=== PATIENT | male | born 1970 | race Caucasian/White ===

== ENCOUNTER 2016-11-15 16:53 | Inpatient (IN) | payer OTHER ==
[2016-11-15 18:44] VITALS: BMI 26.7
--- NOTE | 2016-11-15 21:19 | HP ---
COWS - Scale Resting Pulse: 0= [place] 80 or Below Sweatin= Chills/Flushing Restless Observation: 3= Extraneous Movement Pupil Size: 0= Normal to Room Light Bone or Joint Aches: 2= Severe Diffuse Aches Runny Nose/ Eye Tearin= Runny Nose/Eyes GI Upset > 30mins: 1= Stomach Cramp Tremor Observation: 2= Slight Tremor Visible Yawning Observation: 0= None Anxiety or Irritability: 2=Irritable/Anxious Goose Flesh Skin: 0=Smooth Skin COWS Score: 13 CIWA Score - CIWA Score Nausea/Vomitin-Mild Nausea/No Vomiting Muscle Tremors: 4-Moderate,w/Arms Extend Anxiety: 4-Mod. Anxious/Guarded Agitation: 4-Moderately Restless Paroxysmal Sweats: 1-Minimal Palms Moist Orientation: 1-Uncertain about Date Tacttile Disturbances: 0-None Auditory Disturbances: 0-None Visual Disturbances: 0-None Headache: 0-None Present CIWA-Ar Total Score: 15 Admission ROS S - HPI Chief Complaint: WITHDRAWAL SX Allergies/Adverse Reactions: Allergies Allergy/AdvReac Type Severity Reaction Status Date / Time aspirin Allergy Verified 11/15/16 19:39 History of Present Illness: 46 YEARS OLD MALE WITH LONG HISTORY OF ALCOHOL HEROIN NICOTINE DEPENDENCE HAS DIABETES II AND HYPERTENSION AND ANXIETY DEPRESSION IS ADMITTED TO DETOX Exam Limitations: No Limitations - Ebola screening Have you traveled outside of the country in the last 21 days: No Have you had contact with anyone from an Ebola affected area: No Have you been sick,other than usual withdrawal symptoms: No Do you have a fever: No - Review of Systems Constitutional: Chills, Loss of Appetite, Changes in sleep, Unintentional Wgt. Loss, Unexplained wgt Loss EENT: reports: No Symptoms Reported Respiratory: reports: No Symptoms reported Cardiac: reports: No Symptoms Reported GI: reports: Nausea, Poor Appetite, Poor Fluid Intake, Abdominal cramping : reports: No Symptoms Reported Musculoskeletal: reports: Back Pain, Joint Pain, Muscle Pain, Neck Pain Integumentary: reports: No Symptoms Reported Neuro: reports: Tremors Endocrine: reports: No Symptoms Reported Hematology: reports: No Symptoms Reported Psychiatric: reports: Judgement Intact, Depressed Other Systems: Reviewed and Negative Patient History - Patient Medical History Hx Anemia: No Hx Asthma: No Hx Chronic Obstructive Pulmonary Disease (COPD): No Hx Cancer: No Hx Cardiac Disorders: No Hx Congestive Heart Failure: No Hx Hypertension: Yes Hx Hypercholesterolemia: No Hx Pacemaker: No HX Cerebrovascular Accident: No Hx Seizures: No Hx Dementia: No Hx Diabetes: Yes Hx Gastrointestinal Disorders: No Hx Liver Disease: No Hx Genitourinary Disorders: No Hx Sexually Transmitted Disorders: No Hx Renal Disease (ESRD): No Hx Thyroid Disease: No Hx Human Immunodeficiency Virus (HIV): No Hx Hepatitis C: No Hx Depression: Yes Hx Suicide Attempt: No Hx Bipolar Disorder: No Hx Schizophrenia: No - Patient Surgical History Past Surgical History: No Hx Neurologic Surgery: No Hx Cataract Extraction: No Hx Cardiac Surgery: No Hx Lung Surgery: No Hx Breast Surgery: No Hx Breast Biopsy: No Hx Abdominal Surgery: No Hx Appendectomy: No Hx Cholecystectomy: No Hx Genitourinary Surgery: No Hx Orthopedic Surgery: No - PPD History Previous Implant?: Yes Documented Results: Negative w/proof Implanted On Prior R Admission?: Yes Date: 02/03/13 Results: 0 mm PPD to be Administered?: Yes - Smoking Cessation Smoking history: Current every day smoker Have you smoked in the past 12 months: Yes Aproximately how many cigarettes per day: 20 Hx Chewing Tobacco Use: No Initiated information on smoking cessation: Yes 'Breaking Loose' booklet given: 11/15/16 - Substance & Tx. History Hx Alcohol Use: Yes Hx Substance Use: Yes Substance Use Type: Alcohol, Cocaine, Heroin Hx Substance Use Treatment: Yes (2012 [facility]) - Substances Abused Alcohol Route: Oral Frequency: Daily Amount used: liqour-3 pints, beer- 1 six pack Age of first use: 13 Date of Last Use: 11/14/16 Marijuana/Hashish Route: Smoking Frequency: Daily Amount used: 3 blunts Age of first use: 13 Date of Last Use: 11/15/16 Heroin Route: Inhalation Frequency: Daily Amount used: 15 BAGS Age of first use: 15 Date of Last Use: 11/15/16 Family Disease History - Family Disease History Family Disease History: Diabetes: Brother, Other: Father (ETOH DEPENDENT - ) , Mother (CKD) Admission Physical Exam BHS - Vital Signs Vital Signs: Vital Signs - 24 hr 11/15/16 18:41 Temperature 97.7 F Pulse Rate 69 Respiratory 18 Rate Blood Pressure 110/67 - Physical General Appearance: Yes: Nourished, Appropriately Dressed, Mild Distress, Tremorous, Irritable, Sweating, Anxious HEENTM: Yes: Hearing grossly Normal, Normal ENT Inspection, Normocephalic, Normal Voice Respiratory: Yes: Chest Non-Tender, Lungs Clear, Normal Breath Sounds, No Respiratory Distress, No Accessory Muscle Use Neck: Yes: Supple, Trachea in good position Breast: Yes: Breasts Symetrical Cardiology: Yes: Regular Rhythm, Regular Rate, S1, S2 Abdominal: Yes: Non Tender, Soft Genitourinary: Yes: Within Normal Limits Back: Yes: Normal Inspection Musculoskeletal: Yes: full range of Motion, Gait Steady, Back pain, Muscle Pain Extremities: Yes: Normal Range of Motion, Non-Tender, Tremors Neurological: Yes: Alert, Motor Strength 5/5, Normal Response, Depressed Affect Integumentary: Yes: Warm Lymphatic: Yes: Within Normal Limits - Diagnostic (1) HTN Current Visit: Yes Status: Chronic (2) DM Diabetes mellitus type 2 Current Visit: Yes Status: Chronic (3) Nicotine dependence Current Visit: Yes Status: Acute Qualifiers: Nicotine product type: cigarettes Substance use status: in withdrawal Qualified Code(s): F17.213 - Nicotine dependence, cigarettes, with withdrawal (4) Opioid dependence with withdrawal Current Visit: Yes Status: Acute (5) Alcohol dependence with uncomplicated withdrawal Current Visit: Yes Status: Acute (6) Anxiety and depression Current Visit: Yes Status: Suspected Cleared for Admission [facility] - Detox or Rehab [facility] Level of Care: Medically Managed Detox Regimen/Protocol: Methadone/Valium [facility] Breath Alcohol Content Breath Alcohol Content: 0 Urine Drug Screen - Results Drug Screen Negative: No Urine Drug Screen Results: KARRIE-Cocaine, OPI-Opiates, MTD-Methadone
[2016-11-15] MEDS ORDERED: diphenhydrAMINE HCL 50 MG CAPSULE PO PRN (21:22)
[2016-11-15] MEDS ORDERED: LOPERAMIDE HCL 2 MG CAPSULE PO PRN (21:22)
[2016-11-15] MEDS ORDERED: ACETAMINOPHEN 325 MG TABLET (FP) PO PRN (21:22)
[2016-11-15] MEDS ORDERED: MAGNESIUM HYDROX 2400MG/30ML ORAL SUSPENSION 30 ML CUP PO PRN (21:22)
[2016-11-15] MEDS ORDERED: MAGNESIUM CITRATE 300 ML BOTTLE PO PRN (21:22)
[2016-11-15] MEDS ORDERED: METHADONE HCL 10 MG TABLET (FOR DETOX USE ONLY) PO ONE ×2 (21:22→23:00)
[2016-11-15] MEDS ORDERED: NICOTINE POLACRILEX 4 MG GUM BC PRN (21:22)
[2016-11-15] MEDS ORDERED: P-EPHED 60MG/TRIPROLIDI 2.5MG TABLET PO PRN (21:22)
[2016-11-15] MEDS ORDERED: MENTHOL/PHENOL 1 EACH UD MM PRN (21:22)
[2016-11-15] MEDS ORDERED: diazePAM 5 MG TABLET PO ONE (21:22)
[2016-11-15] MEDS ORDERED: guaiFENesin/D-METHORPHAN HB 10 ML UNIT-DOSE CUPS PO PRN (21:22)
[2016-11-15] MEDS ORDERED: MAG HYDROX/AL HYDROX/SIMETH 30 ML UNIT-DOSE CUP PO PRN (21:22)
[2016-11-15] MEDS ORDERED: diazePAM 5 MG TABLET PO PRN (21:22)
[2016-11-15] MEDS: THIAMINE HCL 100 MG TABLET (FP) PO SCH (22:44)
[2016-11-15] MEDS: diazePAM 5 MG TABLET PO SCH (22:45)
[2016-11-15] MEDS: INSULIN SLIDING SCALE (NOVOLOG) 1 VIAL SQ SCH (22:47)
[2016-11-15 23:51] LABS: URINE APPEARANCE CLEAR; URINE BILIRUBIN NEGATIVE (NEGATIVE); URINE BLOOD 1+ (NEGATIVE); URINE COLOR YELLOW; URINE GLUCOSE (UA) NEGATIVE (NEGATIVE); URINE KETONE NEGATIVE (NEGATIVE); URINE LEUK ESTERASE NEGATIVE (NEGATIVE); URINE NITRITE NEGATIVE (NEGATIVE); URINE PROTEIN NEGATIVE (NEGATIVE); URINE UROBILINOGEN NEGATIVE mg/dL (0.2-1.0)
[2016-11-16 00:04] LABS: URINE MUCUS RARE; URINE RBC 13 /hpf (0-3); URINE WBC 8 /hpf (3-5)
[2016-11-16] MEDS: diazePAM 5 MG TABLET PO SCH ×3 (05:52→22:21)
[2016-11-16] MEDS: metFORMIN HCL 500 MG TABLET (FP) PO SCH (08:00)
[2016-11-16] MEDS: INSULIN SLIDING SCALE (NOVOLOG) 1 VIAL SQ SCH ×4 (08:06→22:22)
[2016-11-16] MEDS ORDERED: METHADONE HCL 10 MG TABLET (FOR DETOX USE ONLY) PO SCH (10:00)
[2016-11-16] MEDS: ENALAPRIL MALEATE 5 MG TABLET (FP) PO SCH (10:17)
[2016-11-16] MEDS: PRENATAL VITAMINS W/ FOLIC ACID TABLET (FP) PO SCH (10:18)
[2016-11-16] MEDS: NICOTINE 21 MG/24 HOURS TOPICAL PATCH TD SCH (10:19)
[2016-11-16 10:23] LABS: MCH 28.6 pg (25.7-33.7); MCHC 32.6 g/dl (32.0-35.9); MEAN CELL VOLUME 87.7 fl (80-96); MEAN PLT VOLUME 8.8 fl (7.5-11.1); PLATELET COUNT 257 K/MM3 (134-434); RDW 14.5 % (11.9-15.9); WHITE BLOOD COUNT 8.6 K/mm3 (4.0-10.0)
--- NOTE | 2016-11-16 10:35 | CONSULT ---
[facility] Psychiatric Consult - Data Date of interview: 11/16/16 Admission source: [facility] Identifying data: Readmission to [facility] for this 46 y/o male seeking detox treatment on for heroin,marijuana,cocaine and alcohol dependence.Patient is single,a father of three,homeless,unemployed and deprived of financial assistance. Substance Abuse History: Discussed with [facility] patient in this interview.Mr Palma confirms this report : Smoking Cessation. Smoking history: Current every day smoker. Have you smoked in the past 12 months: Yes. Aproximately how many cigarettes per day: 20. Hx Chewing Tobacco Use: No. Initiated information on smoking cessation: Yes. 'Breaking Loose' booklet given: 11/15/16. - Substance & Tx. History. Hx Alcohol Use: Yes. Hx Substance Use: Yes. Substance Use Type : Alcohol, Cocaine, Heroin. Hx Substance Use Treatment: Yes (2012). - Substances Abused. Alcohol. Route: Oral. Frequency: Daily. Amount used : liqour-3 pints, beer- 1 six pack. Age of first use: 13. Date of Last Use: . Marijuana/Hashish. Route: Smoking. Frequency: Daily. Amount used : 3 blunts. Age of first use: 13. Date of Last Use: 11/15/16. Heroin. Route: Inhalation. Frequency: Daily. Amount used: 15 BAGS. Age of first use: 15. Date of Last Use: 11/15/16 Medical History: Diabetes mellitus,hypertension,lower back pain and bronchial asthma. Psychiatric History: Patient denies. Physical/Sexual Abuse/Trauma History: Patient denies. Additional Comment: Urine Drug Screen Results: KARRIE-Cocaine, OPI-Opiates, MTD- Methadone.Noted. Mental Status Exam - Mental Status Exam Alert and Oriented to: Place, Person Cognitive Function: Impaired Patient Appearance: Unkempt, Disheveled Mood: Withdrawn Affect: Mood Congruent Patient Behavior: Passive, Sedated, Cooperative Speech Pattern: Delayed, Slurred Voice Loudness: Moderately Soft/Quiet Thought Process: Disorganized, Disoriented Thought Disorder: Not Present Hallucinations: Denies Suicidal Ideation: Denies Homicidal Ideation: Denies Insight/Judgement: Poor Sleep: Poorly, Difficulty falling asleep (as per self-report) Appetite: Good (as evidenced by empty foodtray at bedside) Gait/Station: Other (patient is supine.) Psychiatric Findings - Problem List ([place] 1, 2,3) (1) Alcohol dependence Current Visit: Yes Status: Active (2) Cocaine dependence Current Visit: Yes Status: Active (3) Opioid dependence Current Visit: Yes Status: Active (4) Nicotine dependence Current Visit: Yes Status: Acute (5) HTN Current Visit: Yes Status: Active (6) DM Diabetes mellitus type 2 Current Visit: Yes Status: Acute (7) Insomnia Current Visit: Yes Status: Acute - Initial Treatment Plan Initial Treatment Plan: Psychoeducation.Detoxification.Observation.Review of recent pharmacy claims : not helpful.Scripts for psychotropics : none found.
[2016-11-16 10:55] LABS: ANION GAP 6 (8-16); CALCIUM 8.2 mg/dL (8.5-10.1); CO2 31 mmol/L (21-32); GLUCOSE,RANDOM 116 mg/dL (74-106)
[2016-11-16 10:58] LABS: ALK PHOS 83 U/L (45-117); BILIRUBIN,TOTAL 1.3 mg/dL (0.2-1.0); CREATININE 0.8 mg/dL (0.7-1.3); SGOT/AST 7 U/L (15-37); SGPT/ALT 16 U/L (12-78)
--- NOTE | 2016-11-16 12:56 | PN ---
[facility] CIWA - CIWA Score Nausea/Vomitin-No Nausea/No Vomiting Muscle Tremors: 4-Moderate,w/Arms Extend Anxiety: 1-Mildly Anxious Agitation: 2 Paroxysmal Sweats: 3 Orientation: 0-Oriented Tacttile Disturbances: 2-Mild Itch/Numbness/Burn Auditory Disturbances: 3-Moderate Harsh/Frighten Visual Disturbances: 0-None Headache: 0-None Present CIWA-Ar Total Score: 15 S COWS - Scale Resting Pulse: 0= [place] 80 or Below Sweatin= Chills/Flushing Restless Observation: 0= Sits Still Pupil Size: 0= Normal to Room Light Bone or Joint Aches: 2= Severe Diffuse Aches Runny Nose/ Eye Tearin= Runny Nose/Eyes GI Upset > 30mins: 0= None Tremor Observation of Outstretched Hands: 2= Slight Tremor Visible Yawning Observation: 2= >3x During Session Anxiety or Irritability: 2=Irritable/Anxious Goose Flesh Skin: 3=Piloerection COWS Score: 14 S Progress Note (SOAP) Subjective: Tremors, Interrupted sleep, Fatigue. Objective: PT. A & O X 3, OBSERVED AMBULATING ON UNIT. NO ACUTE DISTRESS. 11/16/16 12:53 Vital Signs Temperature 98.3 F 11/16/16 09:06 Pulse Rate 60 11/16/16 09:06 Respiratory Rate 18 11/16/16 09:06 Blood Pressure 98/60 11/16/16 09:06 O2 Sat by Pulse Oximetry (%) Laboratory Tests 11/15/16 11/15/16 11/16/16 22:43 23:35 05:51 WBC RBC Hgb Hct MCV MCH MCHC RDW Plt Count MPV Sodium Potassium Chloride Carbon Dioxide Anion Gap BUN Creatinine Creat Clearance w eGFR POC Glucometer 137 108 Random Glucose Calcium Total Bilirubin AST ALT Alkaline Phosphatase Total Protein Albumin Urine Color Yellow Urine Appearance Clear Urine pH 5.0 Ur Specific [place] 1.025 Urine Protein Negative Urine Glucose (UA) Negative Urine Ketones Negative Urine Blood 1+ H Urine Nitrite Negative Urine Bilirubin Negative Urine Urobilinogen Negative Ur Leukocyte Esterase Negative Urine RBC 13 Urine WBC 8 Ur Epithelial Cells Rare Urine Mucus Rare RPR Titer 11/16/16 11/16/16 11/16/16 07:45 07:45 07:45 WBC 8.6 RBC 4.61 Hgb 13.2 Hct 40.4 MCV 87.7 MCH 28.6 MCHC 32.6 RDW 14.5 Plt Count 257 MPV 8.8 D Sodium 141 Potassium 4.2 Chloride 104 Carbon Dioxide 31 Anion Gap 6 L BUN 19 H Creatinine 0.8 Creat Clearance w eGFR > 60 POC Glucometer Random Glucose 116 H D Calcium 8.2 L Total Bilirubin 1.3 H D AST 7 L ALT 16 D Alkaline Phosphatase 83 Total Protein 6.0 L Albumin 3.0 L Urine Color Urine Appearance Urine pH Ur Specific [place] Urine Protein Urine Glucose (UA) Urine Ketones Urine Blood Urine Nitrite Urine Bilirubin Urine Urobilinogen Ur Leukocyte Esterase Urine RBC Urine WBC Ur Epithelial Cells Urine Mucus RPR Titer Nonreactive 11/16/16 10:55 WBC RBC Hgb Hct MCV MCH MCHC RDW Plt Count MPV Sodium Potassium Chloride Carbon Dioxide Anion Gap BUN Creatinine Creat Clearance w eGFR POC Glucometer 108 Random Glucose Calcium Total Bilirubin AST ALT Alkaline Phosphatase Total Protein Albumin Urine Color Urine Appearance Urine pH Ur Specific [place] Urine Protein Urine Glucose (UA) Urine Ketones Urine Blood Urine Nitrite Urine Bilirubin Urine Urobilinogen Ur Leukocyte Esterase Urine RBC Urine WBC Ur Epithelial Cells Urine Mucus RPR Titer LABS NOTED. Assessment: 11/16/16 12:54 WITHDRAWAL SYMPTOMS. Plan: CONTINUE DETOX. REPEAT UA FOR ADMISSION UA ABNORMALITIES.
[2016-11-16 17:45] LABS: URINE APPEARANCE CLEAR; URINE BILIRUBIN NEGATIVE (NEGATIVE); URINE BLOOD NEGATIVE (NEGATIVE); URINE COLOR LTYELLOW; URINE GLUCOSE (UA) NEGATIVE (NEGATIVE); URINE KETONE NEGATIVE (NEGATIVE); URINE LEUK ESTERASE TRACE (NEGATIVE); URINE NITRITE NEGATIVE (NEGATIVE); URINE PROTEIN NEGATIVE (NEGATIVE); URINE UROBILINOGEN NEGATIVE mg/dL (0.2-1.0)
[2016-11-16 17:53] LABS: URINE BACTERIA RARE /hpf (NONE SEEN); URINE MUCUS RARE; URINE RBC 2 /hpf (0-3); URINE WBC 6 /hpf (3-5)
[2016-11-16] MEDS: TETRAHYDROZOLINE HCL 1 DROP DROPS OU PRN (22:21)
[2016-11-16] MEDS: THIAMINE HCL 100 MG TABLET (FP) PO SCH (22:21)
[2016-11-17] MEDS: metFORMIN HCL 500 MG TABLET (FP) PO SCH (07:10)
[2016-11-17] MEDS: INSULIN SLIDING SCALE (NOVOLOG) 1 VIAL SQ SCH ×3 (07:11→16:28)
[2016-11-17] MEDS: PRENATAL VITAMINS W/ FOLIC ACID TABLET (FP) PO SCH (10:14)
[2016-11-17] MEDS: METHADONE HCL 5 MG TABLET (FOR DETOX USE ONLY) PO SCH (10:14)
[2016-11-17] MEDS: ENALAPRIL MALEATE 5 MG TABLET (FP) PO SCH (10:14)
[2016-11-17] MEDS: diazePAM 5 MG TABLET PO SCH ×2 (10:14→22:43)
[2016-11-17] MEDS: NICOTINE 21 MG/24 HOURS TOPICAL PATCH TD SCH (10:14)
--- NOTE | 2016-11-17 13:57 | EKG ---
Test Reason : Blood Pressure : / mmHG Vent. Rate : 061 BPM Atrial Rate : 061 BPM P-R Int : 178 ms QRS Dur : 082 ms QT Int : 410 ms P-R-T Axes : 053 -05 032 degrees QTc Int : 412 ms NORMAL SINUS RHYTHM NORMAL ECG NO PREVIOUS ECGS AVAILABLE Confirmed by CRISSY SANDHU, JOANN ([id number]) on 11/17/2016 1:57:37 PM Referred By: Confirmed By:JOANN WOODWARD MD
--- NOTE | 2016-11-17 14:13 | PN ---
S CIWA - CIWA Score Nausea/Vomitin Muscle Tremors: 4-Moderate,w/Arms Extend Anxiety: 4-Mod. Anxious/Guarded Agitation: 4-Moderately Restless Paroxysmal Sweats: No Perspiration Orientation: 0-Oriented Tacttile Disturbances: 1-Very Mild Itch/Numbness Auditory Disturbances: 0-None Visual Disturbances: 0-None Headache: 2-Mild CIWA-Ar Total Score: 18 BHS COWS - Scale Resting Pulse: 0= [place] 80 or Below Sweatin=Flushed/Facial Moisture Restless Observation: 3= Extraneous Movement Pupil Size: 0= Normal to Room Light Bone or Joint Aches: 2= Severe Diffuse Aches Runny Nose/ Eye Tearin= Runny Nose/Eyes GI Upset > 30mins: 2= Nausea/Diarrhea Tremor Observation of Outstretched Hands: 2= Slight Tremor Visible Yawning Observation: 1= 1-2x During Session Anxiety or Irritability: 2=Irritable/Anxious Goose Flesh Skin: 0=Smooth Skin COWS Score: 16 S Progress Note (SOAP) Subjective: Anxious, sweating, tremor, chills, weakness, interrupted sleep Objective: 11/17/16 14:12 Last Vital Signs Temp Pulse Resp BP Pulse Ox 98.6 F 73 18 126/78 11/17/16 13:48 11/17/16 13:48 11/17/16 13:48 11/17/16 13:48 Laboratory Tests 11/15/16 11/15/16 11/16/16 22:43 23:35 05:51 WBC RBC Hgb Hct MCV MCH MCHC RDW Plt Count MPV Sodium Potassium Chloride Carbon Dioxide Anion Gap BUN Creatinine Creat Clearance w eGFR POC Glucometer 137 108 Random Glucose Calcium Total Bilirubin AST ALT Alkaline Phosphatase Total Protein Albumin Urine Color Yellow Urine Appearance Clear Urine pH 5.0 Ur Specific [place] 1.025 Urine Protein Negative Urine Glucose (UA) Negative Urine Ketones Negative Urine Blood 1+ H Urine Nitrite Negative Urine Bilirubin Negative Urine Urobilinogen Negative Ur Leukocyte Esterase Negative Urine RBC 13 Urine WBC 8 Ur Epithelial Cells Rare Urine Bacteria Urine Mucus Rare RPR Titer 11/16/16 11/16/16 11/16/16 07:45 07:45 07:45 WBC 8.6 RBC 4.61 Hgb 13.2 Hct 40.4 MCV 87.7 MCH 28.6 MCHC 32.6 RDW 14.5 Plt Count 257 MPV 8.8 D Sodium 141 Potassium 4.2 Chloride 104 Carbon Dioxide 31 Anion Gap 6 L BUN 19 H Creatinine 0.8 Creat Clearance w eGFR > 60 POC Glucometer Random Glucose 116 H D Calcium 8.2 L Total Bilirubin 1.3 H D AST 7 L ALT 16 D Alkaline Phosphatase 83 Total Protein 6.0 L Albumin 3.0 L Urine Color Urine Appearance Urine pH Ur Specific [place] Urine Protein Urine Glucose (UA) Urine Ketones Urine Blood Urine Nitrite Urine Bilirubin Urine Urobilinogen Ur Leukocyte Esterase Urine RBC Urine WBC Ur Epithelial Cells Urine Bacteria Urine Mucus RPR Titer Nonreactive 11/16/16 11/16/16 11/16/16 10:55 13:48 16:43 WBC RBC Hgb Hct MCV MCH MCHC RDW Plt Count MPV Sodium Potassium Chloride Carbon Dioxide Anion Gap BUN Creatinine Creat Clearance w eGFR POC Glucometer 108 124 Random Glucose Calcium Total Bilirubin AST ALT Alkaline Phosphatase Total Protein Albumin Urine Color Ltyellow Urine Appearance Clear Urine pH 5.0 Ur Specific [place] >= 1.030 H Urine Protein Negative Urine Glucose (UA) Negative Urine Ketones Negative Urine Blood Negative Urine Nitrite Negative Urine Bilirubin Negative Urine Urobilinogen Negative Ur Leukocyte Esterase Trace Urine RBC 2 Urine WBC 6 Ur Epithelial Cells Rare Urine Bacteria Rare Urine Mucus Rare RPR Titer 11/17/16 11/17/16 05:48 11:14 WBC RBC Hgb Hct MCV MCH MCHC RDW Plt Count MPV Sodium Potassium Chloride Carbon Dioxide Anion Gap BUN Creatinine Creat Clearance w eGFR POC Glucometer 135 119 Random Glucose Calcium Total Bilirubin AST ALT Alkaline Phosphatase Total Protein Albumin Urine Color Urine Appearance Urine pH Ur Specific [place] Urine Protein Urine Glucose (UA) Urine Ketones Urine Blood Urine Nitrite Urine Bilirubin Urine Urobilinogen Ur Leukocyte Esterase Urine RBC Urine WBC Ur Epithelial Cells Urine Bacteria Urine Mucus RPR Titer Labs noted Assessment: 11/17/16 14:12 Withdrawal symptoms Plan: Continue detox
[2016-11-17] MEDS: THIAMINE HCL 100 MG TABLET (FP) PO SCH (22:44)
[2016-11-18] MEDS: metFORMIN HCL 500 MG TABLET (FP) PO SCH (06:31)
[2016-11-18] MEDS: diazePAM 5 MG TABLET PO SCH ×2 (10:19→22:12)
[2016-11-18] MEDS: NICOTINE 21 MG/24 HOURS TOPICAL PATCH TD SCH (10:19)
[2016-11-18] MEDS: PRENATAL VITAMINS W/ FOLIC ACID TABLET (FP) PO SCH (10:19)
[2016-11-18] MEDS: METHADONE HCL 5 MG TABLET (FOR DETOX USE ONLY) PO SCH (10:19)
[2016-11-18] MEDS: ENALAPRIL MALEATE 5 MG TABLET (FP) PO SCH (10:19)
--- NOTE | 2016-11-18 13:46 | PN ---
BHS Progress Note (SOAP) Subjective: Interrupted sleep, H/A, Fatigue. Objective: PT. A & O X 2 (DISORIENTED ABOUT DAY / DATE). NO ACUTE DISTRESS. 11/18/16 13:44 Vital Signs Temperature 97.8 F 11/18/16 13:37 Pulse Rate 62 11/18/16 13:37 Respiratory Rate 18 11/18/16 13:37 Blood Pressure 118/76 11/18/16 13:37 O2 Sat by Pulse Oximetry (%) Laboratory Tests 11/15/16 11/15/16 11/16/16 22:43 23:35 05:51 WBC RBC Hgb Hct MCV MCH MCHC RDW Plt Count MPV Sodium Potassium Chloride Carbon Dioxide Anion Gap BUN Creatinine Creat Clearance w eGFR POC Glucometer 137 108 Random Glucose Calcium Total Bilirubin AST ALT Alkaline Phosphatase Total Protein Albumin Urine Color Yellow Urine Appearance Clear Urine pH 5.[address] [place] 1.025 Urine Protein Negative Urine Glucose (UA) Negative Urine Ketones Negative Urine Blood 1+ H Urine Nitrite Negative Urine Bilirubin Negative Urine Urobilinogen Negative Ur Leukocyte Esterase Negative Urine RBC 13 Urine WBC 8 Ur Epithelial Cells Rare Urine Bacteria Urine Mucus Rare RPR Titer 11/16/16 11/16/16 11/16/16 07:45 07:45 07:45 WBC 8.6 RBC 4.61 Hgb 13.2 Hct 40.4 MCV 87.7 MCH 28.6 MCHC 32.6 RDW 14.5 Plt Count 257 MPV 8.8 D Sodium 141 Potassium 4.2 Chloride 104 Carbon Dioxide 31 Anion Gap 6 L BUN 19 H Creatinine 0.8 Creat Clearance w eGFR > 60 POC Glucometer Random Glucose 116 H D Calcium 8.2 L Total Bilirubin 1.3 H D AST 7 L ALT 16 D Alkaline Phosphatase 83 Total Protein 6.0 L Albumin 3.0 L Urine Color Urine Appearance Urine pH Ur Specific [place] Urine Protein Urine Glucose (UA) Urine Ketones Urine Blood Urine Nitrite Urine Bilirubin Urine Urobilinogen Ur Leukocyte Esterase Urine RBC Urine WBC Ur Epithelial Cells Urine Bacteria Urine Mucus RPR Titer Nonreactive 11/16/16 11/16/16 11/16/16 10:55 13:48 16:43 WBC RBC Hgb Hct MCV MCH MCHC RDW Plt Count MPV Sodium Potassium Chloride Carbon Dioxide Anion Gap BUN Creatinine Creat Clearance w eGFR POC Glucometer 108 124 Random Glucose Calcium Total Bilirubin AST ALT Alkaline Phosphatase Total Protein Albumin Urine Color Ltyellow Urine Appearance Clear Urine pH 5.[address] [place] >= 1.030 H Urine Protein Negative Urine Glucose (UA) Negative Urine Ketones Negative Urine Blood Negative Urine Nitrite Negative Urine Bilirubin Negative Urine Urobilinogen Negative Ur Leukocyte Esterase Trace Urine RBC 2 Urine WBC 6 Ur Epithelial Cells Rare Urine Bacteria Rare Urine Mucus Rare RPR Titer 11/16/16 11/17/16 11/17/16 22:20 05:48 11:14 WBC RBC Hgb Hct MCV MCH MCHC RDW Plt Count MPV Sodium Potassium Chloride Carbon Dioxide Anion Gap BUN Creatinine Creat Clearance w eGFR POC Glucometer 124 135 119 Random Glucose Calcium Total Bilirubin AST ALT Alkaline Phosphatase Total Protein Albumin Urine Color Urine Appearance Urine pH Ur Specific [place] Urine Protein Urine Glucose (UA) Urine Ketones Urine Blood Urine Nitrite Urine Bilirubin Urine Urobilinogen Ur Leukocyte Esterase Urine RBC Urine WBC Ur Epithelial Cells Urine Bacteria Urine Mucus RPR Titer 11/17/16 11/18/16 16:14 05:08 WBC RBC Hgb Hct MCV MCH MCHC RDW Plt Count MPV Sodium Potassium Chloride Carbon Dioxide Anion Gap BUN Creatinine Creat Clearance w eGFR POC Glucometer 143 147 Random Glucose Calcium Total Bilirubin AST ALT Alkaline Phosphatase Total Protein Albumin Urine Color Urine Appearance Urine pH Ur Specific [place] Urine Protein Urine Glucose (UA) Urine Ketones Urine Blood Urine Nitrite Urine Bilirubin Urine Urobilinogen Ur Leukocyte Esterase Urine RBC Urine WBC Ur Epithelial Cells Urine Bacteria Urine Mucus RPR Titer LABS NOTED. Assessment: 11/18/16 13:45 WITHDRAWAL SYMPTOMS. Plan: CONTINUE DETOX.
[2016-11-18] MEDS: TETRAHYDROZOLINE HCL 1 DROP DROPS OU PRN (17:38)
[2016-11-18] MEDS: THIAMINE HCL 100 MG TABLET (FP) PO SCH (22:12)
[2016-11-19] MEDS: metFORMIN HCL 500 MG TABLET (FP) PO SCH (07:06)
[2016-11-19] MEDS ORDERED: diazePAM 5 MG TABLET PO SCH (10:00)
[2016-11-19] MEDS ORDERED: METHADONE HCL 10 MG TABLET (FOR DETOX USE ONLY) PO SCH (10:00)
[2016-11-19] MEDS: PRENATAL VITAMINS W/ FOLIC ACID TABLET (FP) PO SCH (10:03)
[2016-11-19] MEDS: ENALAPRIL MALEATE 5 MG TABLET (FP) PO SCH (10:04)
[2016-11-19] MEDS: NICOTINE 21 MG/24 HOURS TOPICAL PATCH TD SCH (10:05)
--- NOTE | 2016-11-19 11:17 | PN ---
BHS Progress Note (SOAP) Subjective: PT WAS SEEN IN BED RESTING. NO OBVIOUS COMPLAINT VERBALIZED WHEN SPOKEN TO. Objective: 11/19/16 11:17 Vital Signs Temperature 97.4 F L 11/19/16 09:45 Pulse Rate 67 11/19/16 09:45 Respiratory Rate 18 11/19/16 09:45 Blood Pressure 109/76 11/19/16 09:45 O2 Sat by Pulse Oximetry (%) Laboratory Last Values WBC 8.6 K/mm3 (4.0-10.0) 11/16/16 07:45 RBC 4.61 M/mm3 (4.00-5.60) 11/16/16 07:45 Hgb 13.2 GM/dL (11.7-16.9) 11/16/16 07:45 Hct 40.4 % (35.4-49) 11/16/16 07:45 MCV 87.7 fl (80-96) 11/16/16 07:45 MCH 28.6 pg (25.7-33.7) 11/16/16 07:45 MCHC 32.6 g/dl (32.0-35.9) 11/16/16 07:45 RDW 14.5 % (11.9-15.9) 11/16/16 07:45 Plt Count 257 K/MM3 (134-434) 11/16/16 07:45 MPV 8.8 fl (7.5-11.1) D 11/16/16 07:45 Sodium 141 mmol/L (136-145) 11/16/16 07:45 Potassium 4.2 mmol/L (3.5-5.1) 11/16/16 07:45 Chloride 104 mmol/L (98-107) 11/16/16 07:45 Carbon Dioxide 31 mmol/L (21-32) 11/16/16 07:45 Anion Gap 6 (8-16) L 11/16/16 07:45 BUN 19 mg/dL (7-18) H 11/16/16 07:45 Creatinine 0.8 mg/dL (0.7-1.3) 11/16/16 07:45 Creat Clearance w eGFR > 60 (>60) 11/16/16 07:45 POC Glucometer 141 UNITS (()) 11/19/16 05:29 Random Glucose 116 mg/dL (74-106) H D 11/16/16 07:45 Calcium 8.2 mg/dL (8.5-10.1) L 11/16/16 07:45 Total Bilirubin 1.3 mg/dL (0.2-1.0) H D 11/16/16 07:45 AST 7 U/L (15-37) L 11/16/16 07:45 ALT 16 U/L (12-78) D 11/16/16 07:45 Alkaline Phosphatase 83 U/L (45-117) 11/16/16 07:45 Total Protein 6.0 g/dl (6.4-8.2) L 11/16/16 07:45 Albumin 3.0 g/dl (3.4-5.0) L 11/16/16 07:45 Urine Color Ltyellow 11/16/16 13:48 Urine Appearance Clear 11/16/16 13:48 Urine pH 5.0 (5.0-8.0) 11/16/16 13:48 Ur Specific [place] >= 1.030 (1.005-1.025) H 11/16/16 13:48 Urine Protein Negative (NEGATIVE) 11/16/16 13:48 Urine Glucose (UA) Negative (NEGATIVE) 11/16/16 13:48 Urine Ketones Negative (NEGATIVE) 11/16/16 13:48 Urine Blood Negative (NEGATIVE) 11/16/16 13:48 Urine Nitrite Negative (NEGATIVE) 11/16/16 13:48 Urine Bilirubin Negative (NEGATIVE) 11/16/16 13:48 Urine Urobilinogen Negative mg/dL (0.2-1.0) 11/16/16 13:48 Ur Leukocyte Esterase Trace (NEGATIVE) 11/16/16 13:48 Urine RBC 2 /hpf (0-3) 11/16/16 13:48 Urine WBC 6 /hpf (3-5) 11/16/16 13:48 Ur Epithelial Cells Rare /hpf (FEW) 11/16/16 13:48 Urine Bacteria Rare /hpf (NONE SEEN) 11/16/16 13:48 Urine Mucus Rare 11/16/16 13:48 RPR Titer Nonreactive (NONREACTIVE) 11/16/16 07:45 Assessment: 11/19/16 11:17 WITHDRAWAL SX Plan: CONTINUE DETOX
[2016-11-19] MEDS: THIAMINE HCL 100 MG TABLET (FP) PO SCH (22:20)
[2016-11-20] MEDS ORDERED: METHADONE HCL 5 MG TABLET (FOR DETOX USE ONLY) PO SCH (06:00)
[2016-11-20 06:23] VITALS: BP 105/76; TEMP 96.4
[2016-11-20] MEDS: metFORMIN HCL 500 MG TABLET (FP) PO SCH (07:32)
[2016-11-20 09:36] VITALS: PULSE 89
[2016-11-20] MEDS: PRENATAL VITAMINS W/ FOLIC ACID TABLET (FP) PO SCH (09:40)
[2016-11-20] MEDS: NICOTINE 21 MG/24 HOURS TOPICAL PATCH TD SCH (09:41)
[2016-11-20] MEDS: ENALAPRIL MALEATE 5 MG TABLET (FP) PO SCH (09:41)
--- NOTE | 2016-11-20 10:37 | DS ---
[facility] Detox Discharge Summary Admission Date: 11/15/16 Discharge Date: 11/20/16 - Physical Exam Results Vital Signs: Vital Signs Temperature 96.4 F L 11/20/16 09:35 Pulse Rate 89 11/20/16 09:35 Respiratory Rate 16 11/20/16 09:35 Blood Pressure 105/76 11/20/16 09:35 O2 Sat by Pulse Oximetry (%) - Treatment Hospital Course: Detox Protocol Followed, Detoxed Safely, Responded well, Discharged Condition Good - Medication Discharge Medications: Ambulatory Orders Enalapril Maleate 5 mg PO DAILY 09/23/12 Metformin HCl [Glucophage -] 500 mg PO DAILY #30 tablet 10/28/14 - Diagnosis (1) Alcohol dependence with uncomplicated withdrawal Current Visit: Yes Status: Acute (2) Nicotine dependence Current Visit: Yes Status: Acute Qualifiers: Nicotine product type: cigarettes Substance use status: in withdrawal Qualified Code(s): F17.213 - Nicotine dependence, cigarettes, with withdrawal (3) Opioid dependence with withdrawal Current Visit: Yes Status: Acute (4) DM Diabetes mellitus type 2 Current Visit: Yes Status: Chronic (5) HTN Current Visit: Yes Status: Chronic - AMA Did Patient Leave Against Medical Advice: No
== END 2016-11-20 09:50 | disposition home or self-care (01) | DRG 773 ==
LOC: YASAS 16:53 → Y3N 20:18
PROVIDERS: ADMIT Internal Medicine; ATTEND Internal Medicine
PROC: HZ2ZZZZ Detoxification Services for Substance Abuse Treatment (ICD-10-PCS; principal; 2016-11-15)
DX: F11.23 Opioid dependence with withdrawal (principal); F10.230 Alcohol dependence with withdrawal, uncomplicated; F17.213 Nicotine dependence, cigarettes, with withdrawal; F41.8 Other specified anxiety disorders; E11.9 Type 2 diabetes mellitus without complications; I10 Essential (primary) hypertension; G47.00 Insomnia, unspecified; M54.5 Low back pain; Z88.6 Allergy status to analgesic agent
CPT/HCPCS: 36415; 80053; 81003; 81015; 85027; 86593; 93005; 93010

== ENCOUNTER 2018-04-28 22:09 | Inpatient (IN) | payer OTHER ==
--- NOTE | 2018-04-29 | HP ---
CIWA Score - Admission Criteria OASAS Guidelines: Admission for Medically Managed Detox: Requires at least one of the followin. CIWA greater than 12 2. Seizures within the past 24 hours 3. Delirium tremens within the past 24 hours 4. Hallucinations within the past 24 hours 5. Acute intervention needed for co occurring medical disorder 6. Acute intervention needed for co occurring psychiatric disorder 7. Severe withdrawal that cannot be handled at a lower level of care (continued vomiting, continued diarrhea, abnormal vital signs) requiring intravenous medication and/or fluids 8. Admission ROS BHS - HPI Allergies/Adverse Reactions: Allergies Allergy/AdvReac Type Severity Reaction Status Date / Time aspirin Allergy Verified 11/15/16 19:39 - Ebola screening Have you traveled outside of the country in the last 21 days: No (N) Have you had contact with anyone from an Ebola affected area: No Do you have a fever: No Patient History - Patient Medical History Hx Anemia: No Hx Asthma: No Hx Chronic Obstructive Pulmonary Disease (COPD): No Hx Cancer: No Hx Cardiac Disorders: No Hx Congestive Heart Failure: No Hx Hypertension: Yes Hx Hypercholesterolemia: No Hx Pacemaker: No HX Cerebrovascular Accident: No Hx Seizures: No Hx Dementia: No Hx Diabetes: Yes Hx Gastrointestinal Disorders: No Hx Liver Disease: No Hx Genitourinary Disorders: No Hx Sexually Transmitted Disorders: No Hx Renal Disease (ESRD): No Hx Thyroid Disease: No Hx Human Immunodeficiency Virus (HIV): No Hx Hepatitis C: No Hx Depression: Yes Hx Suicide Attempt: No Hx Bipolar Disorder: No Hx Schizophrenia: No - Patient Surgical History Past Surgical History: No Hx Neurologic Surgery: No Hx Cataract Extraction: No Hx Cardiac Surgery: No Hx Lung Surgery: No Hx Breast Surgery: No Hx Breast Biopsy: No Hx Abdominal Surgery: No Hx Appendectomy: No Hx Cholecystectomy: No Hx Genitourinary Surgery: No Hx Section: No Hx Orthopedic Surgery: No Anesthesia Reaction: No - PPD History Date: 02/03/13 Results: 0 mm - Smoking Cessation Smoking history: Current every day smoker Have you smoked in the past 12 months: Yes Aproximately how many cigarettes per day: 20 Hx Chewing Tobacco Use: No Family Disease History - Family Disease History Family Disease History: Diabetes: Brother, Other: Father (ETOH DEPENDENT - ) , Mother (CKD) BHS Breath Alcohol Content Breath Alcohol Content: 0
--- NOTE | 2018-04-29 00:23 | HP ---
CIWA Score Nausea/Vomitin-No Nausea/No Vomiting Muscle Tremors: 3 Anxiety: 1-Mildly Anxious Agitation: 1-Slight > Activity Paroxysmal Sweats: 3 Orientation: 1-Uncertain about Date Tacttile Disturbances: 0-None Auditory Disturbances: 0-None Visual Disturbances: 2-Mild Sensitivity Headache: 0-None Present CIWA-Ar Total Score: 11 - Admission Criteria OASAS Guidelines: Admission for Medically Managed Detox: Requires at least one of the followin. CIWA greater than 12 2. Seizures within the past 24 hours 3. Delirium tremens within the past 24 hours 4. Hallucinations within the past 24 hours 5. Acute intervention needed for co occurring medical disorder 6. Acute intervention needed for co occurring psychiatric disorder 7. Severe withdrawal that cannot be handled at a lower level of care (continued vomiting, continued diarrhea, abnormal vital signs) requiring intravenous medication and/or fluids 8. Patient presents the following: Acute intervention needed for co-occurring med or psych disorder Admission Criteria Met: Admission criteria met Admission ROS [facility] Chief Complaint: c/o worsening withdrawal sx's. seeking detox from alcohol Allergies/Adverse Reactions: Allergies Allergy/AdvReac Type Severity Reaction Status Date / Time aspirin Allergy Verified 11/15/16 19:39 History of Present Illness: 47 Y.O. MALE WITH ALCOHOLISM AND OPIOID DEPENDENCE ON MMTP HERE FOR DETOX. CLIENT IS KNOW TO BOTH OUR IN/OUTPATIENT PROGRAMS. LAST DETOX HERE 11/2016. CURRENTLY RECEIVES METHADONE MAINTENANCE AT [facility] DAILY. HE REPORTS HIS DOSE 95 MG , LAST DOSED TODAY. HE IS SELF REFERRED TODAY WITH C/O WORSENING WITHDRAWAL SX'S, CIWA 11. HE REPORTS PMHX, DM, DENIES HX/O MENTAL HEALTH TO INCLUDE SI/HI, AVH. HE ALSO DENIES HX/O SEIZURES. REPORTS LONGEST CLEAN TIME 2 YEARS. 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 Exam Limitations: No Limitations - Ebola screening Have you traveled outside of the country in the last 21 days: No (N) Have you had contact with anyone from an Ebola affected area: No Do you have a fever: No - Review of Systems Constitutional: Chills, Loss of Appetite, Night Sweats, Changes in sleep, Unintentional Wgt. Loss EENT: reports: Dental Problems (MISSING TEETH), Throat Pain (SORE) Respiratory: reports: No Symptoms reported Cardiac: reports: No Symptoms Reported GI: reports: Poor Appetite, Poor Fluid Intake : reports: No Symptoms Reported Musculoskeletal: reports: No Symptoms Reported Integumentary: reports: No Symptoms Reported Neuro: reports: Tremors Endocrine: reports: Other (HX/O DM) Hematology: reports: No Symptoms Reported Psychiatric: reports: Orientated x3 Other Systems: Reviewed and Negative Patient History - Patient Medical History Hx Anemia: No Hx Asthma: No Hx Chronic Obstructive Pulmonary Disease (COPD): No Hx Cancer: No Hx Cardiac Disorders: No Hx Congestive Heart Failure: No Hx Hypertension: Yes Hx Hypercholesterolemia: No Hx Pacemaker: No HX Cerebrovascular Accident: No Hx Seizures: No Hx Dementia: No Hx Diabetes: Yes Hx Gastrointestinal Disorders: No Hx Liver Disease: No Hx Genitourinary Disorders: No Hx Sexually Transmitted Disorders: No Hx Renal Disease (ESRD): No Hx Thyroid Disease: No Hx Human Immunodeficiency Virus (HIV): No Hx Hepatitis C: No Hx Depression: Yes Hx Suicide Attempt: No Hx Bipolar Disorder: No Hx Schizophrenia: No Other Medical History: DENIES - Patient Surgical History Past Surgical History: No Hx Neurologic Surgery: No Hx Cataract Extraction: No Hx Cardiac Surgery: No Hx Lung Surgery: No Hx Breast Surgery: No Hx Breast Biopsy: No Hx Abdominal Surgery: No Hx Appendectomy: No Hx Cholecystectomy: No Hx Genitourinary Surgery: No Hx Section: No Hx Orthopedic Surgery: No Anesthesia Reaction: No - PPD History Previous Implant?: Yes Documented Results: Negative w/o proof Implanted On Prior R Admission?: Yes Date: 04/26/18 Results: 0 mm PPD to be Administered?: No - Smoking Cessation Smoking history: Current every day smoker Have you smoked in the past 12 months: Yes Aproximately how many cigarettes per day: 20 Cigars Per Day: 0 Hx Chewing Tobacco Use: No Initiated information on smoking cessation: Yes 'Breaking Loose' booklet given: 04/29/18 - Substance & Tx. History Hx Alcohol Use: Yes Hx Substance Use: Yes Substance Use Type: Alcohol, Cocaine, Prescribed (METHADONE) Hx Substance Use Treatment: Yes - Substances Abused LIQUOR Route: Oral Frequency: Daily Amount used: 1/2 PINT Age of first use: 15 Date of Last Use: 04/29/18 COCAINE Route: Inhalation Frequency: Daily Amount used: $20 Age of first use: 19 Date of Last Use: 04/28/18 Family Disease History - Family Disease History Family Disease History: Diabetes: Brother, Other: Father (ETOH DEPENDENT - ) , Mother (CKD) Admission Physical Exam BHS - Physical General Appearance: Yes: Appropriately Dressed, Disheveled, Mild Distress, Tremorous, Anxious, Other (MALODUROUS) HEENTM: Yes: EOMI, Normocephalic, Normal Voice, ALANA, Pharynx Normal, Other ( POOR DENTITION) Respiratory: Yes: Chest Non-Tender, Lungs Clear, Normal Breath Sounds, No Respiratory Distress, No Accessory Muscle Use Neck: Yes: No masses,lesions,Nodules, Supple, Trachea in good position Breast: Yes: Breast Exam Deferred Cardiology: Yes: Regular Rhythm, Regular Rate, S1, S2 Abdominal: Yes: Normal Bowel Sounds, Non Tender, Soft Genitourinary: Yes: Other (NO C/O OFFERED) Back: Yes: Normal Inspection Extremities: Yes: Normal Capillary Refill, Normal Range of Motion, Non-Tender, Tremors, Other (SOILED HANDS) Neurological: Yes: Fully Oriented, Alert, Motor Strength 5/5, Depressed Affect Integumentary: Yes: Dry, Warm Lymphatic: Yes: Within Normal Limits - Diagnostic (1) Methadone maintenance therapy patient Current Visit: Yes Status: Chronic (2) Cocaine dependence Current Visit: Yes Status: Active (3) Alcohol dependence with uncomplicated withdrawal Current Visit: Yes Status: Acute (4) Insomnia Current Visit: Yes Status: Chronic Qualifiers: Insomnia type: drug-induced Qualified Code(s): F19.982 - Other psychoactive substance use, unspecified with psychoactive substance-induced sleep disorder (5) Nicotine dependence Current Visit: Yes Status: Chronic Qualifiers: Nicotine product type: cigarettes Substance use status: in withdrawal Qualified Code(s): F17.213 - Nicotine dependence, cigarettes, with withdrawal (6) DM Diabetes mellitus type 2 Current Visit: Yes Status: Chronic (7) HTN Current Visit: Yes Status: Suspected BHS Breath Alcohol Content Breath Alcohol Content: 0 Vital Signs - Vital Signs Vital Signs Refused: No Temperature: 97.9 F Temperature Source: Oral Pulse Rate: 73 Respiratory Rate: 18 Blood Pressure: 113/70 BP Location: Left Arm Blood Pressure Position: Sitting - Height Height: 5 ft 7 in - Weight Weight: 74.843 kg Weight Measurement Method: Standing Scale Body Mass Index (BMI): 25.8 - Bowel Function Bowel Movement: No Urine Drug Screen - Test Device Lot Number: [id number] Expiration Date: 01/05/20 - Control Is Test Valid: Yes - Results Drug Screen Negative: No Urine Drug Screen Results: KARRIE-Cocaine, OPI-Opiates, MTD-Methadone (RX), FEN- Fentanyl
[2018-04-29 00:46] VITALS: BMI 25.8
[2018-04-29] MEDS ORDERED: chlordiazePOXIDE HCL 25 MG CAPSULE PO PRN (00:46)
[2018-04-29] MEDS ORDERED: LOPERAMIDE HCL 2 MG CAPSULE PO PRN (00:46)
[2018-04-29] MEDS ORDERED: NICOTINE POLACRILEX 2 MG GUM BC PRN (00:46)
[2018-04-29] MEDS ORDERED: ACETAMINOPHEN 325 MG TABLET (FP) PO PRN (00:46)
[2018-04-29] MEDS ORDERED: MAG HYDROX/AL HYDROX/SIMETH 30 ML UNIT-DOSE CUP PO PRN (00:46)
[2018-04-29] MEDS ORDERED: MAGNESIUM CITRATE 300 ML BOTTLE PO PRN (00:46)
[2018-04-29] MEDS ORDERED: MAGNESIUM HYDROX 2400MG/30ML ORAL SUSPENSION 30 ML CUP PO PRN (00:46)
[2018-04-29] MEDS ORDERED: guaiFENesin/D-METHORPHAN HB 10 ML UNIT-DOSE CUPS PO PRN (00:46)
[2018-04-29] MEDS ORDERED: hydrOXYzine PAMOATE 50 MG CAPSULE (FP) PO PRN (00:46)
[2018-04-29] MEDS ORDERED: P-EPHED 60MG/TRIPROLIDI 2.5MG TABLET PO PRN (00:46)
[2018-04-29] MEDS ORDERED: IBUPROFEN 400 MG TABLET (FP) PO PRN (00:46)
[2018-04-29] MEDS ORDERED: MENTHOL/PHENOL 1 EACH UD MM PRN (00:46)
[2018-04-29] MEDS: chlordiazePOXIDE HCL 25 MG CAPSULE PO SCH ×4 (05:14→22:04)
[2018-04-29] MEDS: CLOTRIMAZOLE 1% CREAM 15 GM TUBE TP SCH ×3 (07:11→22:06)
[2018-04-29] MEDS ORDERED: METHADONE HCL 10 MG TABLET PO SCH (07:45)
[2018-04-29] MEDS: metFORMIN HCL 500 MG TABLET (FP) PO SCH (08:05)
[2018-04-29] MEDS ORDERED: METHADONE HCL 5 MG TABLET ONE (08:50)
[2018-04-29] MEDS ORDERED: METHADONE HCL 40 MG DISPERSABLE TABLET ONE (08:50)
[2018-04-29] MEDS ORDERED: METHADONE HCL 10 MG TABLET ONE (08:50)
[2018-04-29] MEDS: NICOTINE 14 MG/24 HOURS TOPICAL PATCH TD SCH (10:21)
[2018-04-29] MEDS: PRENATAL VITAMINS W/ FOLIC ACID TABLET (FP) PO SCH (10:22)
[2018-04-29] MEDS: METHADONE 80 MG, METHADONE 10 MG, METHADONE 5 MG PO SCH (10:22)
--- NOTE | 2018-04-29 10:35 | PN ---
S CIWA - CIWA Score Nausea/Vomitin-Mild Nausea/No Vomiting Muscle Tremors: 3 Anxiety: 3 Agitation: 3 Paroxysmal Sweats: 1-Minimal Palms Moist Orientation: 1-Uncertain about Date Tacttile Disturbances: 0-None Auditory Disturbances: 0-None Visual Disturbances: 0-None Headache: 1-Very Mild CIWA-Ar Total Score: 13 BHS Progress Note (SOAP) Subjective: tremor sweating restlessness Objective: 04/29/18 10:36 Vital Signs Temperature 97.1 F L 04/29/18 08:55 Pulse Rate 65 04/29/18 08:55 Respiratory Rate 18 04/29/18 08:55 Blood Pressure 109/72 04/29/18 08:55 O2 Sat by Pulse Oximetry (%) Laboratory Last Values POC Glucometer 109 UNITS (80-120) 04/29/18 05:15 lab pending Assessment: 04/29/18 10:41 withdrawal sx Plan: continue detox
--- NOTE | 2018-04-29 12:42 | EKG ---
Test Reason : Blood Pressure : / mmHG Vent. Rate : 075 BPM Atrial Rate : 075 BPM P-R Int : 160 ms QRS Dur : 082 ms QT Int : 408 ms P-R-T Axes : 066 002 052 degrees QTc Int : 455 ms NORMAL SINUS RHYTHM POSSIBLE LEFT ATRIAL ENLARGEMENT BORDERLINE ECG WHEN COMPARED WITH ECG OF 15-NOV-2016 21:47, NO SIGNIFICANT CHANGE WAS FOUND Confirmed by CHANTEL HYDE MD ([id number]) on 04/29/2018 12:41:42 PM Referred By: Confirmed By:CHANTEL HYDE MD
[2018-04-29 13:41] LABS: URINE APPEARANCE CLEAR; URINE BILIRUBIN NEGATIVE (<2.0 mg/dL); URINE COLOR YELLOW; URINE GLUCOSE (UA) NEGATIVE (NEGATIVE); URINE KETONE NEGATIVE (NEGATIVE); URINE LEUK ESTERASE TRACE (NEGATIVE); URINE NITRITE NEGATIVE (NEGATIVE); URINE PROTEIN NEGATIVE (NEGATIVE)
[2018-04-29 14:01] LABS: EPI CELLS RARE /HPF (FEW); URINE MUCUS FEW
[2018-04-29 15:51] LABS: HEMOGLOBIN 12.8 GM/dL (11.7-16.9); MEAN PLT VOLUME 8.2 fl (7.5-11.1); RDW 13.7 % (11.9-15.9)
[2018-04-29 15:54] LABS: HEMATOCRIT 38.1 % (35.4-49); MCH 30.1 pg (25.7-33.7); MCHC 33.5 g/dl (32.0-35.9); MEAN CELL VOLUME 89.6 fl (80-96); PLATELET COUNT 311 K/MM3 (134-434); RBC 4.25 M/mm3 (4.00-5.60); WHITE BLOOD COUNT 6.6 K/mm3 (4.0-10.0)
[2018-04-29 16:10] LABS: ALBUMIN 3.6 g/dl (3.4-5.0); ALK PHOS 71 U/L (45-117); ANION GAP 5 MMOL/L (8-16); BILIRUBIN,TOTAL 0.4 mg/dL (0.2-1); BLOOD UREA NITROGEN 24 mg/dL (7-18); CALCIUM 8.8 mg/dL (8.5-10.1); CHLORIDE 105 mmol/L (98-107); CO2 32 mmol/L (21-32); CREATININE 0.8 mg/dL (0.55-1.3); GLUCOSE,RANDOM 74 mg/dL (74-106); POTASSIUM 4.5 mmol/L (3.5-5.1); SGOT/AST 12 U/L (15-37); SGPT/ALT 19 U/L (13-61); SODIUM 142 mmol/L (136-145)
[2018-04-29] MEDS ORDERED: MELATONIN 5 MG TABLETS PO PRN (22:00)
[2018-04-29] MEDS: THIAMINE HCL 100 MG TABLET (FP) PO SCH (22:04)
[2018-04-30] MEDS ORDERED: METHADONE HCL 10 MG TABLET ONE (04:21)
[2018-04-30] MEDS ORDERED: METHADONE HCL 40 MG DISPERSABLE TABLET ONE (04:22)
[2018-04-30] MEDS ORDERED: METHADONE HCL 5 MG TABLET ONE (04:22)
[2018-04-30] MEDS: chlordiazePOXIDE HCL 25 MG CAPSULE PO SCH ×4 (05:20→22:24)
[2018-04-30] MEDS: METHADONE 80 MG, METHADONE 10 MG, METHADONE 5 MG PO SCH (05:20)
[2018-04-30] MEDS: metFORMIN HCL 500 MG TABLET (FP) PO SCH (06:29)
--- NOTE | 2018-04-30 08:44 | PN ---
[facility] CIWA - CIWA Score Nausea/Vomitin-Mild Nausea/No Vomiting Muscle Tremors: 2 Anxiety: 2 Agitation: 2 Paroxysmal Sweats: 1-Minimal Palms Moist Orientation: 1-Uncertain about Date Tacttile Disturbances: 0-None Auditory Disturbances: 0-None Visual Disturbances: 0-None Headache: 1-Very Mild CIWA-Ar Total Score: 10 S Progress Note (SOAP) Subjective: tremor sweating gi distress Objective: 04/30/18 08:43 Vital Signs Temperature 97.3 F L 04/30/18 06:09 Pulse Rate 65 04/30/18 06:09 Respiratory Rate 18 04/30/18 06:09 Blood Pressure 97/64 04/30/18 06:09 O2 Sat by Pulse Oximetry (%) Laboratory Last Values WBC 6.6 K/mm3 (4.0-10.0) 04/29/18 11:10 RBC 4.25 M/mm3 (4.00-5.60) 04/29/18 11:10 Hgb 12.8 GM/dL (11.7-16.9) 04/29/18 11:10 Hct 38.1 % (35.4-49) 04/29/18 11:10 MCV 89.6 fl (80-96) 04/29/18 11:10 MCH 30.1 pg (25.7-33.7) 04/29/18 11:10 MCHC 33.5 g/dl (32.0-35.9) 04/29/18 11:10 RDW 13.7 % (11.9-15.9) 04/29/18 11:10 Plt Count 311 K/MM3 (134-434) 04/29/18 11:10 MPV 8.2 fl (7.5-11.1) 04/29/18 11:10 Sodium 142 mmol/L (136-145) 04/29/18 11:10 Potassium 4.5 mmol/L (3.5-5.1) 04/29/18 11:10 Chloride 105 mmol/L (98-107) 04/29/18 11:10 Carbon Dioxide 32 mmol/L (21-32) 04/29/18 11:10 Anion Gap 5 MMOL/L (8-16) L 04/29/18 11:10 BUN 24 mg/dL (7-18) H 04/29/18 11:10 Creatinine 0.8 mg/dL (0.55-1.3) 04/29/18 11:10 Creat Clearance w eGFR > 60 (>60) 04/29/18 11:10 POC Glucometer 145 UNITS (80-120) 04/30/18 05:19 Random Glucose 74 mg/dL (74-106) 04/29/18 11:10 Calcium 8.8 mg/dL (8.5-10.1) 04/29/18 11:10 Total Bilirubin 0.4 mg/dL (0.2-1) 04/29/18 11:10 AST 12 U/L (15-37) L 04/29/18 11:10 ALT 19 U/L (13-61) 04/29/18 11:10 Alkaline Phosphatase 71 U/L (45-117) 04/29/18 11:10 Total Protein 7.0 g/dl (6.4-8.2) 04/29/18 11:10 Albumin 3.6 g/dl (3.4-5.0) 04/29/18 11:10 Urine Color Yellow 04/29/18 10:45 Urine Appearance Clear 04/29/18 10:45 Urine pH 6.0 (5.0-8.0) 04/29/18 10:45 Ur Specific [place] 1.025 (1.010-1.035) 04/29/18 10:45 Urine Protein Negative (NEGATIVE) 04/29/18 10:45 Urine Glucose (UA) Negative (NEGATIVE) 04/29/18 10:45 Urine Ketones Negative (NEGATIVE) 04/29/18 10:45 Urine Blood Negative (NEGATIVE) 04/29/18 10:45 Urine Nitrite Negative (NEGATIVE) 04/29/18 10:45 Urine Bilirubin Negative (<2.0 mg/dL) 04/29/18 10:45 Urine Urobilinogen 2.0 mg/dL (0.2-1.0) 04/29/18 10:45 Ur Leukocyte Esterase Trace (NEGATIVE) 04/29/18 10:45 Urine WBC (Auto) 5 /hpf (3-5) 04/29/18 10:45 Urine RBC (Auto) 4 /hpf (0-3) 04/29/18 10:45 Ur Epithelial Cells Rare /HPF (FEW) 04/29/18 10:45 Urine Mucus Few 04/29/18 10:45 lab noted Assessment: 04/30/18 08:44 withdrawal sx Plan: continue detox
[2018-04-30] MEDS: PRENATAL VITAMINS W/ FOLIC ACID TABLET (FP) PO SCH (10:24)
[2018-04-30] MEDS: CLOTRIMAZOLE 1% CREAM 15 GM TUBE TP SCH ×2 (10:25→22:16)
[2018-04-30] MEDS: NICOTINE 14 MG/24 HOURS TOPICAL PATCH TD SCH (10:25)
[2018-04-30] MEDS: THIAMINE HCL 100 MG TABLET (FP) PO SCH (22:16)
[2018-05-01] MEDS ORDERED: METHADONE HCL 40 MG DISPERSABLE TABLET ONE (04:45)
[2018-05-01] MEDS ORDERED: METHADONE HCL 10 MG TABLET ONE (04:45)
[2018-05-01] MEDS ORDERED: METHADONE HCL 5 MG TABLET ONE (04:45)
[2018-05-01] MEDS: METHADONE 80 MG, METHADONE 10 MG, METHADONE 5 MG PO SCH (05:11)
[2018-05-01] MEDS: chlordiazePOXIDE 5 MG CAPSULE PO SCH ×3 (05:11→17:45)
[2018-05-01] MEDS: metFORMIN HCL 500 MG TABLET (FP) PO SCH (07:55)
[2018-05-01] MEDS: PRENATAL VITAMINS W/ FOLIC ACID TABLET (FP) PO SCH (10:12)
[2018-05-01] MEDS: CLOTRIMAZOLE 1% CREAM 15 GM TUBE TP SCH (10:12)
[2018-05-01] MEDS: NICOTINE 14 MG/24 HOURS TOPICAL PATCH TD SCH (10:14)
--- NOTE | 2018-05-01 16:13 | PN ---
BHS Progress Note (SOAP) Subjective: Fatigue (Minor). Patient Reports that He feels Well Overall at This Time. Objective: PATIENT A & O X 3, OBSERVED AMBULATING ON UNIT. IN NO ACUTE DISTRESS. 05/01/18 16:11 Vital Signs Temperature 98.5 F 05/01/18 13:41 Pulse Rate 74 05/01/18 13:41 Respiratory Rate 17 05/01/18 13:41 Blood Pressure 109/58 L 05/01/18 13:41 O2 Sat by Pulse Oximetry (%) Laboratory Tests 04/29/18 04/29/18 04/29/18 05:15 10:45 11:10 WBC 6.6 RBC 4.25 Hgb 12.8 Hct 38.1 MCV 89.6 MCH 30.1 MCHC 33.5 RDW 13.7 Plt Count 311 MPV 8.2 Sodium Potassium Chloride Carbon Dioxide Anion Gap BUN Creatinine Creat Clearance w eGFR POC Glucometer 109 Random Glucose Calcium Total Bilirubin AST ALT Alkaline Phosphatase Total Protein Albumin Urine Color Yellow Urine Appearance Clear Urine pH 6.0 Ur Specific [place] 1.025 Urine Protein Negative Urine Glucose (UA) Negative Urine Ketones Negative Urine Blood Negative Urine Nitrite Negative Urine Bilirubin Negative Urine Urobilinogen 2.0 Ur Leukocyte Esterase Trace Urine WBC (Auto) 5 Urine RBC (Auto) 4 Ur Epithelial Cells Rare Urine Mucus Few RPR Titer 04/29/18 04/29/18 04/30/18 11:10 11:10 05:19 WBC RBC Hgb Hct MCV MCH MCHC RDW Plt Count MPV Sodium 142 Potassium 4.5 Chloride 105 Carbon Dioxide 32 Anion Gap 5 L BUN 24 H Creatinine 0.8 Creat Clearance w eGFR > 60 POC Glucometer 145 Random Glucose 74 Calcium 8.8 Total Bilirubin 0.4 AST 12 L ALT 19 Alkaline Phosphatase 71 Total Protein 7.0 Albumin 3.6 Urine Color Urine Appearance Urine pH Ur Specific [place] Urine Protein Urine Glucose (UA) Urine Ketones Urine Blood Urine Nitrite Urine Bilirubin Urine Urobilinogen Ur Leukocyte Esterase Urine WBC (Auto) Urine RBC (Auto) Ur Epithelial Cells Urine Mucus RPR Titer Nonreactive 05/01/18 05:12 WBC RBC Hgb Hct MCV MCH MCHC RDW Plt Count MPV Sodium Potassium Chloride Carbon Dioxide Anion Gap BUN Creatinine Creat Clearance w eGFR POC Glucometer 175 Random Glucose Calcium Total Bilirubin AST ALT Alkaline Phosphatase Total Protein Albumin Urine Color Urine Appearance Urine pH Ur Specific [place] Urine Protein Urine Glucose (UA) Urine Ketones Urine Blood Urine Nitrite Urine Bilirubin Urine Urobilinogen Ur Leukocyte Esterase Urine WBC (Auto) Urine RBC (Auto) Ur Epithelial Cells Urine Mucus RPR Titer LABS NOTED. Assessment: 05/01/18 16:12 COMPLETION OF DETOX REGIMEN. Plan: PATIENT SCHEDULED FOR DISCHARGE FROM DETOX UNIT TODAY BED IS CURRENTLY AVAILABLE AT [facility] ([place], [place]). PATIENT VERBALIZED CONSENT TO GO TO REHAB.
--- NOTE | 2018-05-01 16:18 | DS ---
[facility] Detox Discharge Summary Admission Date: 04/29/18 Discharge Date: 05/01/18 - History Present History: Alcohol Dependence, Cocaine Dependence, Opioid Dependence, MMTP Additional Comments: PATIENT SCHEDULED FOR DISCHARGE FROM DETOX UNIT TO DAY. PATIENT GOING TO [facility] ([place]) FOR AFTERCARE. PATIENT WAS DISCHARGED FROM DETOX UNIT TO BE TAKEN OVER TO REHAB UNIT IN STABLE MEDICAL CONDITION. Pertinent Past History: HTN, Type II DM, History of Depression, Nicotine Dependence, History of Insomnia. - Physical Exam Results Vital Signs: Vital Signs Temperature 98.5 F 05/01/18 13:41 Pulse Rate 74 05/01/18 13:41 Respiratory Rate 17 05/01/18 13:41 Blood Pressure 109/58 L 05/01/18 13:41 O2 Sat by Pulse Oximetry (%) Pertinent Admission Physical Exam Findings: WITHDRAWAL SYMPTOMS. Laboratory Tests 04/29/18 04/29/18 04/29/18 05:15 10:45 11:10 WBC 6.6 RBC 4.25 Hgb 12.8 Hct 38.1 MCV 89.6 MCH 30.1 MCHC 33.5 RDW 13.7 Plt Count 311 MPV 8.2 Sodium Potassium Chloride Carbon Dioxide Anion Gap BUN Creatinine Creat Clearance w eGFR POC Glucometer 109 Random Glucose Calcium Total Bilirubin AST ALT Alkaline Phosphatase Total Protein Albumin Urine Color Yellow Urine Appearance Clear Urine pH 6.0 Ur Specific [place] 1.025 Urine Protein Negative Urine Glucose (UA) Negative Urine Ketones Negative Urine Blood Negative Urine Nitrite Negative Urine Bilirubin Negative Urine Urobilinogen 2.0 Ur Leukocyte Esterase Trace Urine WBC (Auto) 5 Urine RBC (Auto) 4 Ur Epithelial Cells Rare Urine Mucus Few RPR Titer 04/29/18 04/29/18 04/30/18 11:10 11:10 05:19 WBC RBC Hgb Hct MCV MCH MCHC RDW Plt Count MPV Sodium 142 Potassium 4.5 Chloride 105 Carbon Dioxide 32 Anion Gap 5 L BUN 24 H Creatinine 0.8 Creat Clearance w eGFR > 60 POC Glucometer 145 Random Glucose 74 Calcium 8.8 Total Bilirubin 0.4 AST 12 L ALT 19 Alkaline Phosphatase 71 Total Protein 7.0 Albumin 3.6 Urine Color Urine Appearance Urine pH Ur Specific [place] Urine Protein Urine Glucose (UA) Urine Ketones Urine Blood Urine Nitrite Urine Bilirubin Urine Urobilinogen Ur Leukocyte Esterase Urine WBC (Auto) Urine RBC (Auto) Ur Epithelial Cells Urine Mucus RPR Titer Nonreactive 05/01/18 05:12 WBC RBC Hgb Hct MCV MCH MCHC RDW Plt Count MPV Sodium Potassium Chloride Carbon Dioxide Anion Gap BUN Creatinine Creat Clearance w eGFR POC Glucometer 175 Random Glucose Calcium Total Bilirubin AST ALT Alkaline Phosphatase Total Protein Albumin Urine Color Urine Appearance Urine pH Ur Specific [place] Urine Protein Urine Glucose (UA) Urine Ketones Urine Blood Urine Nitrite Urine Bilirubin Urine Urobilinogen Ur Leukocyte Esterase Urine WBC (Auto) Urine RBC (Auto) Ur Epithelial Cells Urine Mucus RPR Titer LABS NOTED. - Treatment Hospital Course: Detox Protocol Followed, Detoxed Safely, Responded well, Discharged Condition Good, Rehab Referral Accepted Patient has Accepted a Rehab Referral to: [facility] ([place], [place]). - Medication Discharge Medications: Ambulatory Orders Metformin HCl [Glucophage] 500 mg PO BID 04/29/18 - Diagnosis (1) Cocaine dependence Current Visit: Yes Status: Active (2) Alcohol dependence with uncomplicated withdrawal Current Visit: Yes Status: Acute (3) DM Diabetes mellitus type 2 Current Visit: Yes Status: Chronic (4) Insomnia Current Visit: Yes Status: Chronic Qualifiers: Insomnia type: drug-induced Qualified Code(s): F19.982 - Other psychoactive substance use, unspecified with psychoactive substance-induced sleep disorder (5) Methadone maintenance therapy patient Current Visit: Yes Status: Chronic (6) Nicotine dependence Current Visit: Yes Status: Chronic Qualifiers: Nicotine product type: cigarettes Substance use status: in withdrawal Qualified Code(s): F17.213 - Nicotine dependence, cigarettes, with withdrawal (7) HTN Current Visit: Yes Status: Suspected - AMA Did Patient Leave Against Medical Advice: No
[2018-05-01 17:59] VITALS: BP 99/56; PULSE 69; TEMP 99.2
[2018-05-02] MEDS ORDERED: chlordiazePOXIDE HCL 10 MG CAPSULE PO SCH (05:00)
== END 2018-05-01 19:36 | disposition other institution (70) | DRG 773 ==
LOC: YASAS 22:09 → Y3N 04-29 00:39
PROVIDERS: ADMIT Neuromusculoskeletal Medicine & OMM; ATTEND Neuromusculoskeletal Medicine & OMM
PROC: HZ2ZZZZ Detoxification Services for Substance Abuse Treatment (ICD-10-PCS; principal; 2018-04-29)
DX: F10.230 Alcohol dependence with withdrawal, uncomplicated (principal); F14.20 Cocaine dependence, uncomplicated; F11.20 Opioid dependence, uncomplicated; F17.213 Nicotine dependence, cigarettes, with withdrawal; F19.282 Other psychoactive substance dependence with psychoactive substance-induced sleep disorder; I10 Essential (primary) hypertension; E11.9 Type 2 diabetes mellitus without complications; Z79.84 Long term (current) use of oral hypoglycemic drugs
CPT/HCPCS: 36415; 80053; 81003; 81015; 82962; 85027; 86593; 93005; 93010

== ENCOUNTER 2018-05-01 18:49 | Inpatient (IN) | payer OTHER ==
--- NOTE | 2018-05-01 16:26 | HP ---
[facility] Rehab Assess/Revision - Admission History Admitted to Rehab from: [facility] [place] Date of Admission to Rehab: 05/01/2018 - Vital signs Vital Signs: NOTED; STABLE. - Findings Detox History & Physical reviewed: Yes Concur with findings: Yes Comments/Additional Findings: PATIENT'S MEDICAL / MEDICATION HISTORY REVIEWED PRIOR TO DISCHARGE FROM DETOX UNIT. PATIENT WAS DISCHARGED FROM DETOX UNIT TO BE TAKEN TO REHAB UNIT IN STABLE MEDICAL CONDITION. Inpatient Rehab Admission - Initial Determination Are CD services needed?: Yes Free of communicable disease: Yes Not in need of hospitalization: Yes - Rehab Admission Criteria Previous failed treatment: Yes Comorbidities: Yes Patient is meeting Inpatient Rehab admission criteria:: Yes
[~2018-05-01 18:49] MED LIST: ACETAMINOPHEN 325 MG TABLET (FP) PO PRN; IBUPROFEN 400 MG TABLET (FP) PO PRN; LOPERAMIDE HCL 2 MG CAPSULE PO PRN; MAG HYDROX/AL HYDROX/SIMETH 30 ML UNIT-DOSE CUP PO PRN; MAGNESIUM CITRATE 300 ML BOTTLE PO PRN; MAGNESIUM HYDROX 2400MG/30ML ORAL SUSPENSION 30 ML CUP PO PRN; MENTHOL/PHENOL 1 EACH UD MM PRN; NICOTINE POLACRILEX 2 MG GUM BUC PRN; P-EPHED 60MG/TRIPROLIDI 2.5MG TABLET PO PRN; guaiFENesin/D-METHORPHAN HB 10 ML UNIT-DOSE CUPS PO PRN
[2018-05-01] MEDS: THIAMINE HCL 100 MG TABLET (FP) PO SCH (21:30)
[2018-05-01] MEDS: MELATONIN 5 MG TABLETS PO PRN (21:31)
[2018-05-02] MEDS: metFORMIN HCL 500 MG TABLET (FP) PO SCH ×3 (00:51→16:51)
[2018-05-02] MEDS ORDERED: METHADONE HCL 10 MG TABLET PO SCH (07:45)
[2018-05-02] MEDS ORDERED: METHADONE HCL 5 MG TABLET ONE (10:22)
[2018-05-02] MEDS ORDERED: METHADONE HCL 10 MG TABLET ONE (10:22)
[2018-05-02] MEDS: METHADONE 80 MG, METHADONE 10 MG, METHADONE 5 MG PO SCH (10:23)
[2018-05-02] MEDS ORDERED: METHADONE HCL 40 MG DISPERSABLE TABLET ONE (10:23)
[2018-05-02] MEDS: PRENATAL VITAMINS W/ FOLIC ACID TABLET (FP) PO SCH (10:26)
[2018-05-02] MEDS: NICOTINE 14 MG/24 HOURS TOPICAL PATCH TD SCH (10:27)
[2018-05-02] MEDS: THIAMINE HCL 100 MG TABLET (FP) PO SCH (21:23)
[2018-05-02] MEDS: MELATONIN 5 MG TABLETS PO PRN (21:23)
[2018-05-03] MEDS ORDERED: METHADONE HCL 40 MG DISPERSABLE TABLET ONE (05:13)
[2018-05-03] MEDS ORDERED: METHADONE HCL 5 MG TABLET ONE (05:13)
[2018-05-03] MEDS ORDERED: METHADONE HCL 10 MG TABLET ONE (05:13)
[2018-05-03] MEDS: METHADONE 80 MG, METHADONE 10 MG, METHADONE 5 MG PO SCH (06:23)
[2018-05-03] MEDS: metFORMIN HCL 500 MG TABLET (FP) PO SCH ×2 (06:23→16:54)
[2018-05-03] MEDS: PRENATAL VITAMINS W/ FOLIC ACID TABLET (FP) PO SCH (10:05)
[2018-05-03] MEDS: NICOTINE 14 MG/24 HOURS TOPICAL PATCH TD SCH (10:05)
[2018-05-03] MEDS: THIAMINE HCL 100 MG TABLET (FP) PO SCH (21:22)
[2018-05-04] MEDS ORDERED: METHADONE HCL 40 MG DISPERSABLE TABLET ONE (06:31)
[2018-05-04] MEDS ORDERED: METHADONE HCL 5 MG TABLET ONE (06:31)
[2018-05-04] MEDS ORDERED: METHADONE HCL 10 MG TABLET ONE (06:31)
[2018-05-04] MEDS: metFORMIN HCL 500 MG TABLET (FP) PO SCH ×2 (06:32→16:56)
[2018-05-04] MEDS: METHADONE 80 MG, METHADONE 10 MG, METHADONE 5 MG PO SCH (06:33)
[2018-05-04] MEDS: PRENATAL VITAMINS W/ FOLIC ACID TABLET (FP) PO SCH (10:39)
[2018-05-04] MEDS: NICOTINE 14 MG/24 HOURS TOPICAL PATCH TD SCH (10:39)
[2018-05-04] MEDS: THIAMINE HCL 100 MG TABLET (FP) PO SCH (21:30)
[2018-05-04] MEDS: MELATONIN 5 MG TABLETS PO PRN (21:30)
[2018-05-05] MEDS ORDERED: METHADONE HCL 5 MG TABLET ONE (04:09)
[2018-05-05] MEDS ORDERED: METHADONE HCL 10 MG TABLET ONE (04:09)
[2018-05-05] MEDS ORDERED: METHADONE HCL 40 MG DISPERSABLE TABLET ONE (04:09)
[2018-05-05] MEDS: metFORMIN HCL 500 MG TABLET (FP) PO SCH ×2 (06:32→16:44)
[2018-05-05] MEDS: METHADONE 80 MG, METHADONE 10 MG, METHADONE 5 MG PO SCH (06:33)
[2018-05-05] MEDS: PRENATAL VITAMINS W/ FOLIC ACID TABLET (FP) PO SCH (10:46)
[2018-05-05] MEDS: NICOTINE 14 MG/24 HOURS TOPICAL PATCH TD SCH (10:46)
[2018-05-05] MEDS: THIAMINE HCL 100 MG TABLET (FP) PO SCH (21:18)
[2018-05-05] MEDS: MELATONIN 5 MG TABLETS PO PRN (21:18)
[2018-05-06] MEDS ORDERED: METHADONE HCL 5 MG TABLET ONE (04:08)
[2018-05-06] MEDS ORDERED: METHADONE HCL 40 MG DISPERSABLE TABLET ONE (04:09)
[2018-05-06] MEDS ORDERED: METHADONE HCL 10 MG TABLET ONE (04:09)
[2018-05-06] MEDS: metFORMIN HCL 500 MG TABLET (FP) PO SCH ×2 (06:19→16:30)
[2018-05-06] MEDS: METHADONE 80 MG, METHADONE 10 MG, METHADONE 5 MG PO SCH (06:19)
[2018-05-06] MEDS: NICOTINE 14 MG/24 HOURS TOPICAL PATCH TD SCH (10:26)
[2018-05-06] MEDS: PRENATAL VITAMINS W/ FOLIC ACID TABLET (FP) PO SCH (10:26)
[2018-05-06] MEDS: THIAMINE HCL 100 MG TABLET (FP) PO SCH (21:26)
[2018-05-06] MEDS: MELATONIN 5 MG TABLETS PO PRN (21:26)
[2018-05-07] MEDS ORDERED: METHADONE HCL 10 MG TABLET ONE (04:23)
[2018-05-07] MEDS ORDERED: METHADONE HCL 5 MG TABLET ONE (04:23)
[2018-05-07] MEDS ORDERED: METHADONE HCL 40 MG DISPERSABLE TABLET ONE (04:23)
[2018-05-07] MEDS: METHADONE 80 MG, METHADONE 10 MG, METHADONE 5 MG PO SCH (06:17)
[2018-05-07] MEDS: metFORMIN HCL 500 MG TABLET (FP) PO SCH ×2 (06:17→16:58)
[2018-05-07] MEDS: NICOTINE 14 MG/24 HOURS TOPICAL PATCH TD SCH (09:57)
[2018-05-07] MEDS: PRENATAL VITAMINS W/ FOLIC ACID TABLET (FP) PO SCH (09:57)
[2018-05-07] MEDS: THIAMINE HCL 100 MG TABLET (FP) PO SCH (21:18)
[2018-05-07] MEDS: MELATONIN 5 MG TABLETS PO PRN (21:18)
[2018-05-08] MEDS ORDERED: METHADONE HCL 5 MG TABLET ONE (05:41)
[2018-05-08] MEDS ORDERED: METHADONE HCL 10 MG TABLET ONE (05:42)
[2018-05-08] MEDS ORDERED: METHADONE HCL 40 MG DISPERSABLE TABLET ONE (05:42)
[2018-05-08] MEDS: METHADONE 80 MG, METHADONE 10 MG, METHADONE 5 MG PO SCH (06:02)
[2018-05-08] MEDS: metFORMIN HCL 500 MG TABLET (FP) PO SCH ×2 (06:05→16:47)
[2018-05-08] MEDS: PRENATAL VITAMINS W/ FOLIC ACID TABLET (FP) PO SCH (10:12)
[2018-05-08] MEDS: NICOTINE 14 MG/24 HOURS TOPICAL PATCH TD SCH (10:12)
[2018-05-08] MEDS: THIAMINE HCL 100 MG TABLET (FP) PO SCH (21:30)
[2018-05-09] MEDS ORDERED: METHADONE HCL 5 MG TABLET ONE (04:27)
[2018-05-09] MEDS ORDERED: METHADONE HCL 40 MG DISPERSABLE TABLET ONE (04:28)
[2018-05-09] MEDS ORDERED: METHADONE HCL 10 MG TABLET ONE (04:28)
[2018-05-09] MEDS: METHADONE 80 MG, METHADONE 10 MG, METHADONE 5 MG PO SCH (06:49)
[2018-05-09] MEDS: metFORMIN HCL 500 MG TABLET (FP) PO SCH ×2 (06:49→16:52)
[2018-05-09] MEDS: PRENATAL VITAMINS W/ FOLIC ACID TABLET (FP) PO SCH (10:11)
[2018-05-09] MEDS: NICOTINE 14 MG/24 HOURS TOPICAL PATCH TD SCH (10:11)
[2018-05-09] MEDS: THIAMINE HCL 100 MG TABLET (FP) PO SCH (21:25)
[2018-05-09] MEDS: MELATONIN 5 MG TABLETS PO PRN (21:26)
[2018-05-10] MEDS ORDERED: METHADONE HCL 5 MG TABLET ONE (04:19)
[2018-05-10] MEDS ORDERED: METHADONE HCL 10 MG TABLET ONE (04:20)
[2018-05-10] MEDS ORDERED: METHADONE HCL 40 MG DISPERSABLE TABLET ONE (04:20)
[2018-05-10] MEDS: METHADONE 80 MG, METHADONE 10 MG, METHADONE 5 MG PO SCH (06:55)
[2018-05-10] MEDS: metFORMIN HCL 500 MG TABLET (FP) PO SCH ×2 (06:55→16:28)
[2018-05-10] MEDS: PRENATAL VITAMINS W/ FOLIC ACID TABLET (FP) PO SCH (09:48)
[2018-05-10] MEDS: NICOTINE 14 MG/24 HOURS TOPICAL PATCH TD SCH (09:48)
[2018-05-10] MEDS: MELATONIN 5 MG TABLETS PO PRN (21:24)
[2018-05-10] MEDS: THIAMINE HCL 100 MG TABLET (FP) PO SCH (21:24)
[2018-05-11] MEDS ORDERED: METHADONE HCL 5 MG TABLET ONE (03:13)
[2018-05-11] MEDS ORDERED: METHADONE HCL 40 MG DISPERSABLE TABLET ONE (03:14)
[2018-05-11] MEDS ORDERED: METHADONE HCL 10 MG TABLET ONE (03:14)
[2018-05-11] MEDS: metFORMIN HCL 500 MG TABLET (FP) PO SCH ×2 (06:57→16:31)
[2018-05-11] MEDS: METHADONE 80 MG, METHADONE 10 MG, METHADONE 5 MG PO SCH (06:57)
[2018-05-11] MEDS: NICOTINE 14 MG/24 HOURS TOPICAL PATCH TD SCH (10:04)
[2018-05-11] MEDS: PRENATAL VITAMINS W/ FOLIC ACID TABLET (FP) PO SCH (10:04)
[2018-05-11] MEDS: THIAMINE HCL 100 MG TABLET (FP) PO SCH (21:25)
[2018-05-11] MEDS: MELATONIN 5 MG TABLETS PO PRN (21:26)
[2018-05-12] MEDS ORDERED: METHADONE HCL 5 MG TABLET ONE (02:23)
[2018-05-12] MEDS ORDERED: METHADONE HCL 10 MG TABLET ONE (02:24)
[2018-05-12] MEDS ORDERED: METHADONE HCL 40 MG DISPERSABLE TABLET ONE (02:24)
[2018-05-12] MEDS: metFORMIN HCL 500 MG TABLET (FP) PO SCH ×2 (06:23→16:49)
[2018-05-12] MEDS: METHADONE 80 MG, METHADONE 10 MG, METHADONE 5 MG PO SCH (06:23)
[2018-05-12] MEDS: PRENATAL VITAMINS W/ FOLIC ACID TABLET (FP) PO SCH (10:11)
[2018-05-12] MEDS: NICOTINE 14 MG/24 HOURS TOPICAL PATCH TD SCH (10:11)
[2018-05-12] MEDS: MELATONIN 5 MG TABLETS PO PRN (21:20)
[2018-05-12] MEDS: THIAMINE HCL 100 MG TABLET (FP) PO SCH (21:20)
[2018-05-13] MEDS ORDERED: METHADONE HCL 40 MG DISPERSABLE TABLET ONE (04:18)
[2018-05-13] MEDS ORDERED: METHADONE HCL 5 MG TABLET ONE (04:18)
[2018-05-13] MEDS ORDERED: METHADONE HCL 10 MG TABLET ONE (04:18)
[2018-05-13] MEDS: metFORMIN HCL 500 MG TABLET (FP) PO SCH ×2 (06:16→16:42)
[2018-05-13] MEDS: METHADONE 80 MG, METHADONE 10 MG, METHADONE 5 MG PO SCH (06:17)
[2018-05-13] MEDS: PRENATAL VITAMINS W/ FOLIC ACID TABLET (FP) PO SCH (10:05)
[2018-05-13] MEDS: NICOTINE 14 MG/24 HOURS TOPICAL PATCH TD SCH (10:05)
[2018-05-13] MEDS: THIAMINE HCL 100 MG TABLET (FP) PO SCH (21:12)
[2018-05-13] MEDS: MELATONIN 5 MG TABLETS PO PRN (21:12)
[2018-05-14] MEDS ORDERED: METHADONE HCL 40 MG DISPERSABLE TABLET ONE (03:34)
[2018-05-14] MEDS ORDERED: METHADONE HCL 10 MG TABLET ONE (03:34)
[2018-05-14] MEDS ORDERED: METHADONE HCL 5 MG TABLET ONE (03:34)
[2018-05-14] MEDS: METHADONE 80 MG, METHADONE 10 MG, METHADONE 5 MG PO SCH (05:57)
[2018-05-14] MEDS: metFORMIN HCL 500 MG TABLET (FP) PO SCH ×2 (07:05→16:50)
[2018-05-14] MEDS: NICOTINE 14 MG/24 HOURS TOPICAL PATCH TD SCH (10:31)
[2018-05-14] MEDS: PRENATAL VITAMINS W/ FOLIC ACID TABLET (FP) PO SCH (10:31)
[2018-05-14] MEDS: THIAMINE HCL 100 MG TABLET (FP) PO SCH (21:31)
[2018-05-14] MEDS: MELATONIN 5 MG TABLETS PO PRN (21:31)
[2018-05-15] MEDS ORDERED: METHADONE HCL 5 MG TABLET ONE (05:53)
[2018-05-15] MEDS ORDERED: METHADONE HCL 40 MG DISPERSABLE TABLET ONE (05:54)
[2018-05-15] MEDS ORDERED: METHADONE HCL 10 MG TABLET ONE (05:54)
[2018-05-15] MEDS ORDERED: METHADONE 80 MG, METHADONE 10 MG, METHADONE 5 MG PO SCH (06:00)
[2018-05-15] MEDS: metFORMIN HCL 500 MG TABLET (FP) PO SCH (06:21)
[2018-05-15 06:46] VITALS: BP 109/69; PULSE 51; TEMP 98
[2018-05-15] MEDS: PRENATAL VITAMINS W/ FOLIC ACID TABLET (FP) PO SCH (09:48)
[2018-05-15] MEDS: NICOTINE 14 MG/24 HOURS TOPICAL PATCH TD SCH (09:48)
--- NOTE | 2018-05-15 10:27 | PN ---
[facility] Progress Note Note: PT COMPLETED REHAB AND DISCHARGED TODAY. [facility]FERR[facility]. PT REPORTS HIS PCP MOVED TO [facility] AND DOES NOT WANT TO GO BACK TO HIM. PT [facility]. PT HAS BEEN INSTRUCTED TO STOP IN AT [facility] ON THE ENTRANCE FLOOR OF [address] [place] [address] TO REGISTER FOR PRIMARY CARE. PT IS IN AGREEMENT TO PLAN AND STATES IT IS CONVENIENT FOR HIM FROM HOME AND TREATMENT. PT REPORTS HE HAS OWN MEDICATIONS FOR DM-- METFORMIN AND DOES NOT NEED [facility] RX TODAY. Vital Signs - 24 hr 05/15/18 05/15/18 05/15/18 00:30 03:30 06:45 Temperature 98.0 F Pulse Rate 51 L Respiratory 18 18 18 Rate Blood Pressure 109/69 Laboratory Tests 05/02/18 05/03/18 05/04/18 06:13 06:22 06:32 POC Glucometer 111 140 128 05/04/18 05/05/18 05/06/18 16:55 06:32 06:19 POC Glucometer 143 100 118 05/07/18 05/08/18 05/09/18 06:16 06:04 06:48 POC Glucometer 142 110 127 05/10/18 05/11/18 05/12/18 06:54 06:56 06:22 POC Glucometer 111 147 105 05/12/18 05/13/18 05/13/18 16:49 06:15 16:42 POC Glucometer 101 84 114 05/14/18 05/14/18 05/15/18 07:04 16:49 06:20 POC Glucometer 139 96 95 NAD MEDICALLY STABLE PLAN;FOLLOW UP WITH CD RECOMMENDATION AND PRIMARY CARE DISCUSSED.
== END 2018-05-15 10:00 | disposition home or self-care (01) | DRG 772 ==
LOC: YASAS 18:49 → Y5N 18:50
PROVIDERS: ADMIT Psychiatry & Neurology Psychiatry; ATTEND Psychiatry & Neurology Psychiatry
PROC: HZ42ZZZ Group Counseling for Substance Abuse Treatment, Cognitive-Behavioral (ICD-10-PCS; principal; 2018-05-01)
DX: F10.20 Alcohol dependence, uncomplicated (principal); F11.20 Opioid dependence, uncomplicated; F14.20 Cocaine dependence, uncomplicated; F17.213 Nicotine dependence, cigarettes, with withdrawal; F19.282 Other psychoactive substance dependence with psychoactive substance-induced sleep disorder; I10 Essential (primary) hypertension; E11.9 Type 2 diabetes mellitus without complications
CPT/HCPCS: 82962

== ENCOUNTER 2018-06-30 21:10 | Inpatient (IN) | payer OTHER ==
[2018-06-30 21:45] VITALS: BMI 24.1
--- NOTE | 2018-06-30 23:25 | HP ---
CIWA Score Nausea/Vomitin Muscle Tremors: 4-Moderate,w/Arms Extend Anxiety: 4-Mod. Anxious/Guarded Agitation: 0-Normal Activity Paroxysmal Sweats: 3 Orientation: 1-Uncertain about Date Tacttile Disturbances: 0-None Auditory Disturbances: 0-None Visual Disturbances: 0-None Headache: 2-Mild CIWA-Ar Total Score: 16 - Admission Criteria OASAS Guidelines: Admission for Medically Managed Detox: Requires at least one of the followin. CIWA greater than 12 2. Seizures within the past 24 hours 3. Delirium tremens within the past 24 hours 4. Hallucinations within the past 24 hours 5. Acute intervention needed for co occurring medical disorder 6. Acute intervention needed for co occurring psychiatric disorder 7. Severe withdrawal that cannot be handled at a lower level of care (continued vomiting, continued diarrhea, abnormal vital signs) requiring intravenous medication and/or fluids 8. Admission ROS S - [facility] Chief Complaint: Alcohol withdrawal symptoms Allergies/Adverse Reactions: Allergies Allergy/AdvReac Type Severity Reaction Status Date / Time aspirin Allergy Verified 11/15/16 19:39 History of Present Illness: 47 years old male with out 32 years of alcohol dependence is seeking admission to detox. Patient was in detox last month and 4 years of sobriety. He has medical history of diabetes and hypertension. He denies suicidal ideation at this time. Patient is on Methadone 95mg at [facility]. Dose is yet to be confirmed by the nurse. Exam Limitations: No Limitations - Ebola screening Have you traveled outside of the country in the last 21 days: No (N) Have you had contact with anyone from an Ebola affected area: No Have you been sick,other than usual withdrawal symptoms: No Do you have a fever: No - Review of Systems Constitutional: Chills, Malaise, Night Sweats EENT: reports: Nose Congestion Respiratory: reports: No Symptoms reported Cardiac: reports: No Symptoms Reported GI: reports: Nausea, Poor Appetite, Poor Fluid Intake, Abdominal cramping : reports: No Symptoms Reported Musculoskeletal: reports: No Symptoms Reported Integumentary: reports: Dryness, Flushing Neuro: reports: Tremors Endocrine: reports: No Symptoms Reported Hematology: reports: No Symptoms Reported Psychiatric: reports: Mood/Affect Appropiate, Orientated x3 Other Systems: Reviewed and Negative Patient History - Patient Medical History Hx Anemia: No Hx Asthma: No Hx Chronic Obstructive Pulmonary Disease (COPD): No Hx Cancer: No Hx Cardiac Disorders: No Hx Congestive Heart Failure: No Hx Hypertension: Yes Hx Hypercholesterolemia: No Hx Pacemaker: No HX Cerebrovascular Accident: No Hx Seizures: No Hx Dementia: No Hx Diabetes: Yes Hx Gastrointestinal Disorders: No Hx Liver Disease: No Hx Genitourinary Disorders: No Hx Sexually Transmitted Disorders: No Hx Renal Disease (ESRD): No Hx Thyroid Disease: No Hx Human Immunodeficiency Virus (HIV): No Hx Hepatitis C: No Hx Depression: No Hx Suicide Attempt: No Hx Bipolar Disorder: No Hx Schizophrenia: No - Patient Surgical History Past Surgical History: No - PPD History Previous Implant?: Yes Documented Results: Negative w/proof Implanted On Prior [facility] Admission?: Yes Date: 05/02/18 Results: 0 mm PPD to be Administered?: No - Reproductive History Patient is a Female of Child Bearing Age (11 -55 yrs old): No (Male) - Smoking Cessation Smoking history: Current every day smoker Have you smoked in the past 12 months: Yes Aproximately how many cigarettes per day: 20 Cigars Per Day: 0 Hx Chewing Tobacco Use: No Initiated information on smoking cessation: Yes 'Breaking Loose' booklet given: 06/30/18 Family Disease History - Family Disease History Family Disease History: Diabetes: Brother, Other: Father (ETOH DEPENDENT - ) , Mother (CKD) Admission Physical Exam BHS - Vital Signs Vital Signs: Vital Signs - 24 hr 06/30/18 21:39 Temperature 97.7 F Pulse Rate 73 Respiratory 18 Rate Blood Pressure 127/82 - Physical General Appearance: Yes: Moderate Distress, Tremorous, Anxious HEENTM: Yes: Normal ENT Inspection, Normal Voice, ALANA, Pharynx Normal Respiratory: Yes: Lungs Clear, Normal Breath Sounds, No Respiratory Distress Neck: Yes: Supple Breast: Yes: Breast Exam Deferred Cardiology: Yes: Regular Rhythm, Regular Rate Abdominal: Yes: Normal Bowel Sounds, Soft Genitourinary: Yes: Within Normal Limits Back: Yes: Normal Inspection Extremities: Yes: Tremors 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, Alert, Normal Mood/Affect Integumentary: Yes: Warm Lymphatic: Yes: Within Normal Limits - Diagnostic (1) Cocaine dependence Current Visit: No Status: Active (2) Alcohol dependence with uncomplicated withdrawal Current Visit: Yes Status: Chronic (3) Opioid dependence with withdrawal Current Visit: Yes Status: Chronic (4) DM Diabetes mellitus type 2 Current Visit: No Status: Chronic (5) Methadone maintenance therapy patient Current Visit: Yes Status: Chronic (6) Nicotine dependence Current Visit: Yes Status: Chronic Qualifiers: Nicotine product type: cigarettes Substance use status: in withdrawal Qualified Code(s): F17.213 - Nicotine dependence, cigarettes, with withdrawal (7) HTN Current Visit: Yes Status: Chronic Cleared for Admission [facility] - Detox or Rehab [facility] Level of Care: Medically Managed Detox Regimen/Protocol: Librium S Breath Alcohol Content Breath Alcohol Content: 0 Urine Drug Screen - Results Drug Screen Negative: No Urine Drug Screen Results: KARRIE-Cocaine, OPI-Opiates, FEN-Fentanyl Inpatient Rehab Admission - Rehab Decision to Admit Inpatient rehab admission?: No
[2018-06-30] MEDS ORDERED: MENTHOL/PHENOL 1 EACH UD MM PRN (23:31)
[2018-06-30] MEDS ORDERED: BISMUTH SUBSALICYLATE 524 MG/30 ML UD PO PRN (23:31)
[2018-06-30] MEDS ORDERED: METHOCARBAMOL 500 MG TABLET PO PRN (23:31)
[2018-06-30] MEDS ORDERED: MAG HYDROX/AL HYDROX/SIMETH 30 ML UNIT-DOSE CUP PO PRN (23:31)
[2018-06-30] MEDS ORDERED: IBUPROFEN 400 MG TABLET (FP) PO PRN (23:31)
[2018-06-30] MEDS ORDERED: MAGNESIUM CITRATE 300 ML BOTTLE PO PRN (23:31)
[2018-06-30] MEDS ORDERED: ACETAMINOPHEN 325 MG TABLET (FP) PO PRN ×2 (23:31)
[2018-06-30] MEDS ORDERED: MAGNESIUM HYDROX 2400MG/30ML ORAL SUSPENSION 30 ML CUP PO PRN (23:31)
[2018-06-30] MEDS ORDERED: hydrOXYzine PAMOATE 25 MG CAPSULE (FP) PO PRN (23:31)
[2018-07-01] MEDS: chlordiazePOXIDE HCL 10 MG CAPSULE PO PRN ×2 (01:55→10:07)
[2018-07-01] MEDS: MELATONIN 5 MG TABLETS PO PRN ×2 (01:56→22:54)
[2018-07-01] MEDS: chlordiazePOXIDE HCL 25 MG CAPSULE PO SCH ×3 (05:45→22:00)
[2018-07-01] MEDS: metFORMIN HCL 500 MG TABLET (FP) PO SCH ×2 (07:44→18:18)
[2018-07-01] MEDS ORDERED: METHADONE HCL 10 MG TABLET PO SCH (07:45)
[2018-07-01] MEDS ORDERED: METHADONE HCL 40 MG DISPERSABLE TABLET ONE (07:59)
[2018-07-01] MEDS ORDERED: METHADONE HCL 10 MG TABLET ONE (07:59)
[2018-07-01] MEDS ORDERED: METHADONE HCL 5 MG TABLET ONE (07:59)
[2018-07-01] MEDS: METHADONE 80 MG, METHADONE 10 MG, METHADONE 5 MG PO SCH (08:00)
[2018-07-01] MEDS: PRENATAL VITAMINS W/ FOLIC ACID TABLET (FP) PO SCH (10:08)
--- NOTE | 2018-07-01 11:24 | PN ---
S CIWA - CIWA Score Nausea/Vomitin-No Nausea/No Vomiting Muscle Tremors: 2 Anxiety: 3 Agitation: 2 Paroxysmal Sweats: 1-Minimal Palms Moist Orientation: 2-Disoriented Date<2 days Tacttile Disturbances: 0-None Auditory Disturbances: 0-None Visual Disturbances: 0-None Headache: 1-Very Mild CIWA-Ar Total Score: 11 BHS Progress Note (SOAP) Subjective: doing ok on the unit, sleep most of the time encourage personal hygiene and discuss nutritional Objective: 07/01/18 11:23 Vital Signs Temperature 96.7 F L 07/01/18 06:45 Pulse Rate 55 L 07/01/18 06:45 Respiratory Rate 18 07/01/18 06:45 Blood Pressure 99/52 L 07/01/18 06:45 O2 Sat by Pulse Oximetry (%) Laboratory Last Values POC Glucometer 92 UNITS (80-120) 07/01/18 05:46 07/01/18 11:26 lab pending Assessment: 07/01/18 11:26 withdrawal sx Plan: continue detox
[2018-07-01 12:46] LABS: HEMATOCRIT 37.5 % (35.4-49); HEMOGLOBIN 12.6 GM/dL (11.7-16.9); MCH 29.4 pg (25.7-33.7); MCHC 33.6 g/dl (32.0-35.9); MEAN CELL VOLUME 87.7 fl (80-96); MEAN PLT VOLUME 8.7 fl (7.5-11.1); PLATELET COUNT 233 K/MM3 (134-434); RBC 4.27 M/mm3 (4.00-5.60); RDW 13.6 % (11.9-15.9); WHITE BLOOD COUNT 5.6 K/mm3 (4.0-10.0)
[2018-07-01 12:52] LABS: ALBUMIN 3.5 g/dl (3.4-5.0); ALK PHOS 72 U/L (45-117); ANION GAP 6 MMOL/L (8-16); BILIRUBIN,TOTAL 0.2 mg/dL (0.2-1); BLOOD UREA NITROGEN 22 mg/dL (7-18); CALCIUM 8.5 mg/dL (8.5-10.1); CHLORIDE 106 mmol/L (98-107); CO2 30 mmol/L (21-32); CREATININE 0.8 mg/dL (0.55-1.3); GLUCOSE,RANDOM 100 mg/dL (74-106); POTASSIUM 4.2 mmol/L (3.5-5.1); SGOT/AST 12 U/L (15-37); SGPT/ALT 17 U/L (13-61); SODIUM 141 mmol/L (136-145); TOT PROT 6.7 g/dl (6.4-8.2)
[2018-07-01] MEDS: THIAMINE HCL 100 MG TABLET (FP) PO SCH (22:53)
[2018-07-02] MEDS ORDERED: METHADONE HCL 5 MG TABLET ONE (04:44)
[2018-07-02] MEDS ORDERED: METHADONE HCL 40 MG DISPERSABLE TABLET ONE (04:44)
[2018-07-02] MEDS ORDERED: METHADONE HCL 10 MG TABLET ONE (04:44)
[2018-07-02] MEDS: chlordiazePOXIDE 5 MG CAPSULE PO SCH ×3 (05:55→23:04)
[2018-07-02] MEDS: METHADONE 80 MG, METHADONE 10 MG, METHADONE 5 MG PO SCH (05:55)
[2018-07-02] MEDS: metFORMIN HCL 500 MG TABLET (FP) PO SCH ×2 (07:51→17:23)
[2018-07-02] MEDS: chlordiazePOXIDE HCL 10 MG CAPSULE PO PRN (10:32)
[2018-07-02] MEDS: PRENATAL VITAMINS W/ FOLIC ACID TABLET (FP) PO SCH (10:32)
--- NOTE | 2018-07-02 14:12 | PN ---
[facility] CIWA - CIWA Score Nausea/Vomitin-No Nausea/No Vomiting Muscle Tremors: 1-None Visible, but [place] Anxiety: 1-Mildly Anxious Agitation: 1-Slight > Activity Paroxysmal Sweats: 1-Minimal Palms Moist Orientation: 1-Uncertain about Date Tacttile Disturbances: 0-None Auditory Disturbances: 0-None Visual Disturbances: 0-None Headache: 1-Very Mild CIWA-Ar Total Score: 6 BHS Progress Note (SOAP) Subjective: feeling better social with peers in day room discuss aftercare with staff patient is consider return to methadone program for medical and mental issue Objective: 07/02/18 14:11 Vital Signs Temperature 96.7 F L 07/02/18 06:46 Pulse Rate 50 L 07/02/18 06:46 Respiratory Rate 18 07/02/18 06:46 Blood Pressure 98/58 L 07/02/18 06:46 O2 Sat by Pulse Oximetry (%) Laboratory Last Values WBC 5.6 K/mm3 (4.0-10.0) 07/01/18 07:30 RBC 4.27 M/mm3 (4.00-5.60) 07/01/18 07:30 Hgb 12.6 GM/dL (11.7-16.9) 07/01/18 07:30 Hct 37.5 % (35.4-49) 07/01/18 07:30 MCV 87.7 fl (80-96) 07/01/18 07:30 MCH 29.4 pg (25.7-33.7) 07/01/18 07:30 MCHC 33.6 g/dl (32.0-35.9) 07/01/18 07:30 RDW 13.6 % (11.9-15.9) 07/01/18 07:30 Plt Count 233 K/MM3 (134-434) D 07/01/18 07:30 MPV 8.7 fl (7.5-11.1) 07/01/18 07:30 Sodium 141 mmol/L (136-145) 07/01/18 07:30 Potassium 4.2 mmol/L (3.5-5.1) 07/01/18 07:30 Chloride 106 mmol/L (98-107) 07/01/18 07:30 Carbon Dioxide 30 mmol/L (21-32) 07/01/18 07:30 Anion Gap 6 MMOL/L (8-16) L 07/01/18 07:30 BUN 22 mg/dL (7-18) H 07/01/18 07:30 Creatinine 0.8 mg/dL (0.55-1.3) 07/01/18 07:30 Creat Clearance w eGFR 102.75 (>60) 07/01/18 07:30 POC Glucometer 109 UNITS (80-120) 07/02/18 05:54 Random Glucose 100 mg/dL (74-106) 07/01/18 07:30 Calcium 8.5 mg/dL (8.5-10.1) 07/01/18 07:30 Total Bilirubin 0.2 mg/dL (0.2-1) 07/01/18 07:30 AST 12 U/L (15-37) L 07/01/18 07:30 ALT 17 U/L (13-61) 07/01/18 07:30 Alkaline Phosphatase 72 U/L (45-117) 07/01/18 07:30 Total Protein 6.7 g/dl (6.4-8.2) 07/01/18 07:30 Albumin 3.5 g/dl (3.4-5.0) 07/01/18 07:30 RPR Titer Nonreactive (NONREACTIVE) 07/01/18 07:30 lab noted Assessment: 07/02/18 14:12 mild alcohol withdrawal sx Plan: continue detox
[2018-07-02] MEDS ORDERED: chlordiazePOXIDE HCL 10 MG CAPSULE PO ONE (15:00)
[2018-07-02] MEDS: THIAMINE HCL 100 MG TABLET (FP) PO SCH (23:04)
[2018-07-03] MEDS ORDERED: METHADONE HCL 40 MG DISPERSABLE TABLET ONE (04:44)
[2018-07-03] MEDS ORDERED: METHADONE HCL 10 MG TABLET ONE (04:44)
[2018-07-03] MEDS ORDERED: METHADONE HCL 5 MG TABLET ONE (04:44)
[2018-07-03] MEDS ORDERED: chlordiazePOXIDE HCL 10 MG CAPSULE PO PRN (05:00)
[2018-07-03] MEDS ORDERED: chlordiazePOXIDE HCL 10 MG CAPSULE PO SCH (05:00)
[2018-07-03] MEDS: METHADONE 80 MG, METHADONE 10 MG, METHADONE 5 MG PO SCH (05:13)
[2018-07-03 06:24] VITALS: BP 97/60; PULSE 54; TEMP 97.9
[2018-07-03] MEDS: metFORMIN HCL 500 MG TABLET (FP) PO SCH (06:54)
--- NOTE | 2018-07-03 21:52 | DS ---
[facility] Detox Discharge Summary Admission Date: 07/01/18 Discharge Date: 07/03/18 - History Present History: Alcohol Dependence, Cocaine Dependence, Opioid Dependence, MMTP Additional Comments: PATIENT TO RETURN TO [facility] ([place], [place]) FOR AFTERCARE. PATIENT ALSO NOTES THAT HE WILL ATTEND [facility] ([place], [place]) FOR AFTERCARE. PATIENT DECLINED OFFER OF MEDICATION PRESCRIPTION FOR HOME MEDICATION AT TIME OF DISCHARGE FROM DETOX, NOTING THAT HE CURRENTLY HAS ADEQUATE SUPPLIES OF ALL PRESCRIBED HOME MEDICATIONS AT HOME. PATIENT WAS DISCHARGED FROM DETOX UNIT IN STABLE MEDICAL CONDITION. Pertinent Past History: Nicotine Dependence, M.M.T.P., HTN, Type II DM. - Physical Exam Results Vital Signs: Vital Signs Temperature 97.9 F 07/03/18 06:23 Pulse Rate 54 L 07/03/18 06:23 Respiratory Rate 18 07/03/18 06:23 Blood Pressure 97/60 07/03/18 06:23 O2 Sat by Pulse Oximetry (%) Pertinent Admission Physical Exam Findings: WITHDRAWAL SYMPTOMS. Laboratory Tests 07/01/18 07/01/18 07/01/18 05:46 07:30 07:30 WBC 5.6 RBC 4.27 Hgb 12.6 Hct 37.5 MCV 87.7 MCH 29.4 MCHC 33.6 RDW 13.6 Plt Count 233 D MPV 8.7 Sodium 141 Potassium 4.2 Chloride 106 Carbon Dioxide 30 Anion Gap 6 L BUN 22 H Creatinine 0.8 Creat Clearance w eGFR 102.75 POC Glucometer 92 Random Glucose 100 Calcium 8.5 Total Bilirubin 0.2 AST 12 L ALT 17 Alkaline Phosphatase 72 Total Protein 6.7 Albumin 3.5 RPR Titer 07/01/18 07/01/18 07/02/18 07:30 16:46 05:54 WBC RBC Hgb Hct MCV MCH MCHC RDW Plt Count MPV Sodium Potassium Chloride Carbon Dioxide Anion Gap BUN Creatinine Creat Clearance w eGFR POC Glucometer 101 109 Random Glucose Calcium Total Bilirubin AST ALT Alkaline Phosphatase Total Protein Albumin RPR Titer Nonreactive 07/03/18 05:14 WBC RBC Hgb Hct MCV MCH MCHC RDW Plt Count MPV Sodium Potassium Chloride Carbon Dioxide Anion Gap BUN Creatinine Creat Clearance w eGFR POC Glucometer 118 Random Glucose Calcium Total Bilirubin AST ALT Alkaline Phosphatase Total Protein Albumin RPR Titer LABS NOTED. - Treatment Hospital Course: Detox Protocol Followed, Detoxed Safely, Responded well, Discharged Condition Good Patient has Accepted a Rehab Referral to: PT. TO RETURN TO [facility], WILL ALSO ATTEND [facility]. - Medication Discharge Medications: Ambulatory Orders Metformin HCl [Glucophage] 500 mg PO BID 04/29/18 - Diagnosis (1) Cocaine dependence Status: Active (2) Alcohol dependence with uncomplicated withdrawal Status: Chronic (3) DM Diabetes mellitus type 2 Status: Chronic (4) HTN Status: Chronic (5) Methadone maintenance therapy patient Status: Chronic (6) Nicotine dependence Status: Chronic Qualifiers: Nicotine product type: cigarettes Substance use status: in withdrawal Qualified Code(s): F17.213 - Nicotine dependence, cigarettes, with withdrawal (7) Opioid dependence with withdrawal Status: Chronic - AMA Did Patient Leave Against Medical Advice: No
== END 2018-07-03 08:50 | disposition home or self-care (01) | DRG 773 ==
LOC: YASAS 21:10 → Y3N 07-01 00:01
PROVIDERS: ADMIT Surgery; ATTEND Surgery
PROC: HZ2ZZZZ Detoxification Services for Substance Abuse Treatment (ICD-10-PCS; principal; 2018-07-01)
DX: F10.230 Alcohol dependence with withdrawal, uncomplicated (principal); F14.20 Cocaine dependence, uncomplicated; F11.20 Opioid dependence, uncomplicated; F17.210 Nicotine dependence, cigarettes, uncomplicated; I10 Essential (primary) hypertension; E11.9 Type 2 diabetes mellitus without complications; Z79.84 Long term (current) use of oral hypoglycemic drugs
CPT/HCPCS: 36415; 80053; 82962; 85027; 86593

== ENCOUNTER 2018-09-27 18:42 | Inpatient (IN) | payer OTHER | END 2018-10-01 09:45 | disposition home or self-care (01) | LOC: YASAS 18:42 → Y3N 23:35 ==

== ENCOUNTER 2018-10-27 23:09 | Inpatient (IN) | payer OTHER | END 2018-11-01 09:28 | LOC: YASAS 23:09 → Y3N 23:46 ==

== ENCOUNTER 2019-03-22 17:16 | Inpatient (IN) | payer OTHER ==
[2019-03-22 18:04] VITALS: BMI 24.3
--- NOTE | 2019-03-22 18:52 | HP ---
CIWA Score Nausea/Vomitin-No Nausea/No Vomiting Muscle Tremors: None Anxiety: 0-No Anxiety, at Ease Agitation: 0-Normal Activity Paroxysmal Sweats: No Perspiration Orientation: 0-Oriented Tacttile Disturbances: 0-None Auditory Disturbances: 0-None Visual Disturbances: 0-None Headache: 0-None Present CIWA-Ar Total Score: 0 - Admission Criteria OASAS Guidelines: Admission for Medically Managed Detox: Requires at least one of the followin. CIWA greater than 12 2. Seizures within the past 24 hours 3. Delirium tremens within the past 24 hours 4. Hallucinations within the past 24 hours 5. Acute intervention needed for co occurring medical disorder 6. Acute intervention needed for co occurring psychiatric disorder 7. Severe withdrawal that cannot be handled at a lower level of care (continued vomiting, continued diarrhea, abnormal vital signs) requiring intravenous medication and/or fluids 8. Admitting History and Physical - Smoking History Smoking history: Current every day smoker Have you smoked in the past 12 months: Yes Aproximately how many cigarettes per day: 10 - Alcohol/Substance Use Hx Alcohol Use: Yes Admission ROS [facility] Allergies/Adverse Reactions: Allergies Allergy/AdvReac Type Severity Reaction Status Date / Time aspirin Allergy Severe Rash Verified 03/22/19 17:52 History of Present Illness: 48 y.o. male pt here for etoh use , states 1 pint /day and 6- pk beer x 2 months , claims he has tremors if not drinking , denies seizures , blackouts , latest use today @ noon , denies symptoms . cocaine : 20 $ /day , first age of use 19 . heroin - daily ,1 bag /day via inhalation , on MMTP 85 mg daily . tobacco : 1/2 ppd PMHx: NIDDM; Heart murmur PsychHx: denies SI / HI Exam Limitations: No Limitations - Ebola screening Have you traveled outside of the country in the last 21 days: No (N) Have you had contact with anyone from an Ebola affected area: No Do you have a fever: No - Review of Systems Constitutional: Loss of Appetite EENT: reports: No Symptoms Reported Respiratory: reports: No Symptoms reported Cardiac: reports: No Symptoms Reported GI: reports: No Symptoms Reported : reports: No Symptoms Reported Musculoskeletal: reports: Joint Pain (left knee) Integumentary: reports: No Symptoms Reported Neuro: reports: Unsteady Gait (left knee pain) Endocrine: reports: See HPI Psychiatric: reports: Orientated x3 Patient History - Patient Medical History Hx Anemia: No Hx Asthma: No Hx Chronic Obstructive Pulmonary Disease (COPD): No Hx Cancer: No Hx Cardiac Disorders: No Hx Congestive Heart Failure: No Hx Hypertension: Yes (vasotec 5 mg ) Hx Hypercholesterolemia: No Hx Pacemaker: No HX Cerebrovascular Accident: No Hx Seizures: No Hx Dementia: No Hx Diabetes: Yes (metformin ) Hx Gastrointestinal Disorders: No Hx Liver Disease: No Hx Genitourinary Disorders: No Hx Sexually Transmitted Disorders: No Hx Renal Disease (ESRD): No Hx Thyroid Disease: No Hx Human Immunodeficiency Virus (HIV): No (negative 7months ago) Hx Hepatitis C: No Hx Depression: No Hx Suicide Attempt: No (denies) Hx Bipolar Disorder: No Hx Schizophrenia: No - Patient Surgical History Past Surgical History: No Hx Neurologic Surgery: No Hx Cataract Extraction: No Hx Cardiac Surgery: No Hx Lung Surgery: No Hx Breast Surgery: No Hx Breast Biopsy: No Hx Abdominal Surgery: No Hx Appendectomy: No Hx Cholecystectomy: No Hx Genitourinary Surgery: No Hx Section: No Hx Orthopedic Surgery: No Anesthesia Reaction: No - PPD History Date: 01/21/14 Results: 0 mm - Smoking Cessation Smoking history: Current every day smoker Have you smoked in the past 12 months: Yes Aproximately how many cigarettes per day: 10 Cigars Per Day: 0 Hx Chewing Tobacco Use: No Initiated information on smoking cessation: Yes 'Breaking Loose' booklet given: 03/22/19 - Substances abused Alcohol Substance route: Oral Frequency: Daily Amount used: 4-5 (16 oz beer) + 1 pint Age of first use: 15 Date of last use: 03/22/19 Cocaine Substance route: Inhalation Frequency: Daily Amount used: 20$ Age of first use: 19 Date of last use: 03/22/19 Heroin Substance route: Inhalation Frequency: Daily Amount used: 1 bag Age of first use: 21 Date of last use: 03/22/19 Admission Physical Exam BHS - Vital Signs Vital Signs: Vital Signs - 24 hr 03/22/19 03/22/19 17:51 18:20 Temperature 97.7 F 97.7 F Pulse Rate 67 67 Respiratory 20 20 Rate Blood Pressure 116/75 116/75 - Physical General Appearance: Yes: No Apparent Distress HEENTM: Yes: EOMI, Hearing grossly Normal, Normocephalic, Normal Voice, Other ( poor dentition , many missing teeth) Respiratory: Yes: Lungs Clear, Normal Breath Sounds, No Respiratory Distress, No Accessory Muscle Use Neck: Yes: No masses,lesions,Nodules, Trachea in good position Cardiology: Yes: Regular Rhythm, Regular Rate, S1, S2, Murmur Abdominal: Yes: Non Tender, Soft Back: Yes: Normal Inspection Musculoskeletal: Yes: Gait Steady Extremities: Yes: Normal Inspection, Normal Range of Motion, Non-Tender Neurological: Yes: Fully Oriented, Alert, Motor Strength 5/5, Normal Mood/Affect Integumentary: Yes: Warm - Diagnostic (1) Alcohol dependence Current Visit: Yes Status: Chronic (2) Cocaine dependence Current Visit: Yes Status: Chronic (3) Nicotine dependence Current Visit: Yes Status: Chronic Qualifiers: Nicotine product type: cigarettes (4) Methadone maintenance therapy patient Current Visit: Yes Status: Chronic Breathalyzer - Breathalyzer Breathalyzer: 0 Urine Drug Screen - Test Device Lot number: [id number] Expiration date: 11/04/20 - Control Is test valid?: Yes - Results Drug screen NEGATIVE: No Urine drug screen results: KARRIE-Cocaine, FEN-Fentanyl, MOP-Opiates, MTD-Methadone Inpatient Rehab Admission - Rehab Decision to Admit Inpatient rehab admission?: Yes - Initial Determination Are CD services needed?: Yes Free of communicable disease: Yes Not in need of hospitalization: Yes - Rehab Admission Criteria Previous failed treatment: Yes Poor recovery environment: Yes Comorbidities: Yes Lacks judgement: Yes Patient is meeting Inpatient Rehab admission criteria:: Yes
[2019-03-22] MEDS ORDERED: LOPERAMIDE HCL 2 MG CAPSULE PO PRN (19:29)
[2019-03-22] MEDS ORDERED: hydrOXYzine PAMOATE 50 MG CAPSULE (FP) PO PRN (19:29)
[2019-03-22] MEDS ORDERED: guaiFENesin 200 MG/10 ML 10 ML UNIT-DOSE CUPS PO PRN (19:29)
[2019-03-22] MEDS ORDERED: P-EPHED 60MG/TRIPROLIDI 2.5MG TABLET PO PRN (19:29)
[2019-03-22] MEDS ORDERED: MAGNESIUM HYDROX 2400MG/30ML ORAL SUSPENSION 30 ML CUP PO PRN (19:29)
[2019-03-22] MEDS ORDERED: MENTHOL/PHENOL 1 EACH UD MM PRN (19:29)
[2019-03-22] MEDS ORDERED: MAG HYDROX/AL HYDROX/SIMETH 30 ML UNIT-DOSE CUP PO PRN (19:29)
[2019-03-22] MEDS ORDERED: MAGNESIUM CITRATE 300 ML BOTTLE PO PRN (19:29)
[2019-03-22] MEDS: THIAMINE HCL 100 MG TABLET (FP) PO SCH (22:25)
[2019-03-22] MEDS: MELATONIN 5 MG TABLETS PO PRN (22:26)
[2019-03-23] MEDS: metFORMIN HCL 500 MG TABLET (FP) PO SCH (07:47)
[2019-03-23] MEDS ORDERED: METHADONE 80 MG, METHADONE 5 MG PO ONE (08:00)
[2019-03-23] MEDS ORDERED: METHADONE HCL 10 MG TABLET PO SCH (08:00)
[2019-03-23] MEDS ORDERED: METHADONE HCL 40 MG DISPERSABLE TABLET ONE (09:11)
[2019-03-23] MEDS ORDERED: METHADONE HCL 5 MG TABLET ONE (09:11)
[2019-03-23 09:56] LABS: PH,URINE 6.5 (5.0-8.0); URINE APPEARANCE CLEAR; URINE BILIRUBIN NEGATIVE (NEGATIVE); URINE COLOR YELLOW; URINE GLUCOSE (UA) NEGATIVE (NEGATIVE); URINE KETONE NEGATIVE (NEGATIVE); URINE LEUK ESTERASE NEGATIVE (NEGATIVE); URINE NITRITE NEGATIVE (NEGATIVE); URINE PROTEIN NEGATIVE (NEGATIVE)
--- NOTE | 2019-03-23 10:12 | PN ---
[facility] Progress Note Note: Patient admitted to rehab yesterday. Last 4 admissions reviewed; no safety issues documented. Labs pending. Home medications, orders, problem list reviewed. Patient stable. Will continue to monitor. Vital Signs Period Temp Pulse Resp BP Sys/Malave Pulse Ox Last 24 Hr 97.7 F-98.3 F 60-67 18-20 107-122/68-75
[2019-03-23] MEDS: PRENATAL VITAMINS W/ FOLIC ACID TABLET (FP) PO SCH (10:13)
[2019-03-23] MEDS: ACETAMINOPHEN 325 MG TABLET (FP) PO PRN (12:02)
[2019-03-23 12:14] LABS: HEMATOCRIT 36.9 % (35.4-49); HEMOGLOBIN 12.4 GM/dL (11.7-16.9); MCH 29.8 pg (25.7-33.7); MCHC 33.6 g/dl (32.0-35.9); MEAN CELL VOLUME 88.7 fl (80-96); MEAN PLT VOLUME 8.5 fl (7.5-11.1); PLATELET COUNT 316 K/MM3 (134-434); RBC 4.16 M/mm3 (4.00-5.60); RDW 13.8 % (11.9-15.9); WHITE BLOOD COUNT 7.9 K/mm3 (4.0-10.0)
[2019-03-23 12:24] LABS: ALBUMIN 3.5 g/dl (3.4-5.0); BILIRUBIN,TOTAL 0.5 mg/dL (0.2-1); BLOOD UREA NITROGEN 26.5 mg/dL (7-18); CALCIUM 8.8 mg/dL (8.5-10.1); CREATININE 0.9 mg/dL (0.55-1.3); POTASSIUM 3.8 mmol/L (3.5-5.1); TOT PROT 6.9 g/dl (6.4-8.2)
[2019-03-23] MEDS: THIAMINE HCL 100 MG TABLET (FP) PO SCH (21:31)
[2019-03-23] MEDS: MELATONIN 5 MG TABLETS PO PRN (21:31)
[2019-03-24] MEDS ORDERED: METHADONE HCL 40 MG DISPERSABLE TABLET ONE (04:16)
[2019-03-24] MEDS ORDERED: METHADONE HCL 5 MG TABLET ONE (04:17)
[2019-03-24] MEDS: METHADONE 80 MG, METHADONE 5 MG PO SCH (06:10)
[2019-03-24] MEDS: metFORMIN HCL 500 MG TABLET (FP) PO SCH (06:12)
[2019-03-24] MEDS: PRENATAL VITAMINS W/ FOLIC ACID TABLET (FP) PO SCH (10:21)
[2019-03-24] MEDS: THIAMINE HCL 100 MG TABLET (FP) PO SCH (21:04)
[2019-03-24] MEDS: MELATONIN 5 MG TABLETS PO PRN (21:04)
[2019-03-25] MEDS ORDERED: METHADONE HCL 40 MG DISPERSABLE TABLET ONE (04:21)
[2019-03-25] MEDS ORDERED: METHADONE HCL 5 MG TABLET ONE (04:21)
[2019-03-25] MEDS: METHADONE 80 MG, METHADONE 5 MG PO SCH (06:12)
[2019-03-25] MEDS: metFORMIN HCL 500 MG TABLET (FP) PO SCH (06:15)
[2019-03-25] MEDS: PRENATAL VITAMINS W/ FOLIC ACID TABLET (FP) PO SCH (09:59)
[2019-03-25] MEDS: THIAMINE HCL 100 MG TABLET (FP) PO SCH (21:16)
[2019-03-25] MEDS: MELATONIN 5 MG TABLETS PO PRN (21:16)
[2019-03-26] MEDS ORDERED: METHADONE HCL 40 MG DISPERSABLE TABLET ONE (05:32)
[2019-03-26] MEDS ORDERED: METHADONE HCL 5 MG TABLET ONE (05:32)
[2019-03-26] MEDS: METHADONE 80 MG, METHADONE 5 MG PO SCH (06:21)
[2019-03-26] MEDS: metFORMIN HCL 500 MG TABLET (FP) PO SCH (06:57)
[2019-03-26] MEDS: PRENATAL VITAMINS W/ FOLIC ACID TABLET (FP) PO SCH (10:21)
[2019-03-26] MEDS: MELATONIN 5 MG TABLETS PO PRN (21:04)
[2019-03-26] MEDS: THIAMINE HCL 100 MG TABLET (FP) PO SCH (21:04)
[2019-03-27] MEDS ORDERED: METHADONE HCL 40 MG DISPERSABLE TABLET ONE (05:30)
[2019-03-27] MEDS ORDERED: METHADONE HCL 5 MG TABLET ONE (05:30)
[2019-03-27] MEDS: METHADONE 80 MG, METHADONE 5 MG PO SCH (05:52)
[2019-03-27] MEDS: metFORMIN HCL 500 MG TABLET (FP) PO SCH (07:03)
[2019-03-27] MEDS: PRENATAL VITAMINS W/ FOLIC ACID TABLET (FP) PO SCH (09:52)
[2019-03-27] MEDS ORDERED: NICOTINE POLACRILEX 2 MG GUM BUC PRN (11:38)
[2019-03-27] MEDS ORDERED: NICOTINE 21 MG/24 HOURS TOPICAL PATCH TD SCH (11:45)
[2019-03-27] MEDS: MELATONIN 5 MG TABLETS PO PRN (21:45)
[2019-03-27] MEDS: THIAMINE HCL 100 MG TABLET (FP) PO SCH (21:45)
[2019-03-28] MEDS ORDERED: METHADONE HCL 40 MG DISPERSABLE TABLET ONE (05:33)
[2019-03-28] MEDS ORDERED: METHADONE HCL 5 MG TABLET ONE (05:33)
[2019-03-28] MEDS: METHADONE 80 MG, METHADONE 5 MG PO SCH (05:53)
[2019-03-28] MEDS: metFORMIN HCL 500 MG TABLET (FP) PO SCH (07:04)
[2019-03-28] MEDS: PRENATAL VITAMINS W/ FOLIC ACID TABLET (FP) PO SCH (10:09)
[2019-03-28] MEDS: ACETAMINOPHEN 325 MG TABLET (FP) PO PRN (20:07)
[2019-03-28] MEDS: THIAMINE HCL 100 MG TABLET (FP) PO SCH (21:29)
[2019-03-28] MEDS: MELATONIN 5 MG TABLETS PO PRN (21:29)
[2019-03-29] MEDS ORDERED: METHADONE HCL 40 MG DISPERSABLE TABLET ONE (03:43)
[2019-03-29] MEDS ORDERED: METHADONE HCL 5 MG TABLET ONE (03:43)
[2019-03-29] MEDS: METHADONE 80 MG, METHADONE 5 MG PO SCH (05:58)
[2019-03-29] MEDS: metFORMIN HCL 500 MG TABLET (FP) PO SCH (05:59)
[2019-03-29] MEDS ORDERED: NICOTINE POLACRILEX 2 MG GUM BUC PRN (08:48)
[2019-03-29] MEDS: PRENATAL VITAMINS W/ FOLIC ACID TABLET (FP) PO SCH (09:53)
[2019-03-29] MEDS: NICOTINE 14 MG/24 HOURS TOPICAL PATCH TD SCH (09:54)
[2019-03-29] MEDS: ACETAMINOPHEN 325 MG TABLET (FP) PO PRN (09:54)
[2019-03-29] MEDS: MELATONIN 5 MG TABLETS PO PRN (21:22)
[2019-03-29] MEDS: THIAMINE HCL 100 MG TABLET (FP) PO SCH (21:22)
[2019-03-30] MEDS ORDERED: METHADONE HCL 5 MG TABLET ONE (05:07)
[2019-03-30] MEDS ORDERED: METHADONE HCL 40 MG DISPERSABLE TABLET ONE (05:07)
[2019-03-30] MEDS: METHADONE 80 MG, METHADONE 5 MG PO SCH (05:23)
[2019-03-30] MEDS: metFORMIN HCL 500 MG TABLET (FP) PO SCH (06:05)
[2019-03-30] MEDS: NICOTINE 14 MG/24 HOURS TOPICAL PATCH TD SCH (10:12)
[2019-03-30] MEDS: PRENATAL VITAMINS W/ FOLIC ACID TABLET (FP) PO SCH (10:13)
[2019-03-30] MEDS: MELATONIN 5 MG TABLETS PO PRN (21:09)
[2019-03-30] MEDS: THIAMINE HCL 100 MG TABLET (FP) PO SCH (21:09)
[2019-03-31] MEDS ORDERED: METHADONE HCL 40 MG DISPERSABLE TABLET ONE (03:47)
[2019-03-31] MEDS ORDERED: METHADONE HCL 5 MG TABLET ONE (03:48)
[2019-03-31 06:31] VITALS: BP 90/50; PULSE 52; TEMP 98
[2019-03-31] MEDS: METHADONE 80 MG, METHADONE 5 MG PO SCH (07:02)
[2019-03-31] MEDS: metFORMIN HCL 500 MG TABLET (FP) PO SCH (07:02)
[2019-03-31] MEDS: PRENATAL VITAMINS W/ FOLIC ACID TABLET (FP) PO SCH (09:48)
[2019-03-31] MEDS: NICOTINE 14 MG/24 HOURS TOPICAL PATCH TD SCH (09:49)
[2019-03-31] MEDS: ACETAMINOPHEN 325 MG TABLET (FP) PO PRN (10:47)
[2019-03-31] MEDS ORDERED: LIDOCAINE 5% TOPICAL PATCH TP SCH (13:45)
--- NOTE | 2019-03-31 15:24 | DS ---
[facility] Rehab Discharge Summary - [facility] Rehab Discharge Summary Admission Date: 03/22/19 Discharge Date: 03/31/19 - History Present History: Alcohol dependence, Cannabis dependence, Cocaine dependence, MMTP Pertinent Past History: 48 y.o. male pt here for etoh use , states 1 pint /day and 6- pk beer x 2 months , claims he has tremors if not drinking , denies seizures , blackouts , denies symptoms . cocaine : 20 $ /day , first age of use 19 . heroin - daily ,1 bag /day via inhalation , on MMTP 85 mg daily . tobacco : 1/2 ppd PMHx: NIDDM; Heart murmur PsychHx: denies SI / HI - Discharge Physical Exam Vital Signs: Vital Signs Temperature 98 F 03/31/19 06:30 Pulse Rate 52 L 03/31/19 06:30 Respiratory Rate 18 03/31/19 06:30 Blood Pressure 90/50 L 03/31/19 06:30 O2 Sat by Pulse Oximetry (%) Pertinent Admission Physical Exam Findings: General Appearance: No Apparent Distress HEENTM: Normocephalic,poor dentition , many missing teeth Respiratory: Lungs Clear, Neck: Trachea in good position Cardiology:S1, S2, Murmur Abdominal: +BS, Non Tender, Soft Musculoskeletal: Full ROM, Gait Steady Neurological: Cn 2-12 intact - Treatment Discharge Condition: Outpatient referral accepted (Medically stable for discharge.Patient will return to [facility]) Hospital Course: Patient attended groups, has 1:1 with his counselor, was adherent to his medication regimen and treatment plan. He had no urgent or acute medical problems while in rehab. - Medication Discharge Medications: Ambulatory Orders Methadone [Dolophine -] 85 mg PO DAILY 10/27/18 Metformin HCl [Glucophage] 500 mg PO DAILY 30 Days #30 tablet 03/31/19 - Medication-Assisted Treatment (MAT) Medication-Assisted Treatment (MAT): Yes MAT Follow-up Referral: MMTP at [facility] - Discharge Instructions Diet, activity, other medical instructions: Diet: as tolerated Activity: as tolerated Other medical instructions: Please follow up with aftercare referral. - Diagnosis (1) Alcohol dependence Current Visit: Yes Status: Chronic (2) Cocaine dependence Current Visit: Yes Status: Chronic (3) Methadone maintenance therapy patient Current Visit: Yes Status: Chronic (4) Opioid dependence Current Visit: No Status: Chronic - Follow-up Referral Minutes to complete discharge: 20 - AMA Did Patient Leave Against Medical Advice: No
[2019-03-31] MEDS ORDERED: METHYL SALICYLATE/MENTHOL OINT 30 GM TUBE TP SCH (22:00)
[2019-03-31] MEDS ORDERED: LIDOCAINE PATCH REMOVAL MC SCH (22:00)
== END 2019-03-31 15:50 | disposition home or self-care (01) | DRG 772 ==
LOC: YASAS 17:16 → Y3W 19:02
PROVIDERS: ADMIT Neuromusculoskeletal Medicine & OMM; ATTEND Neuromusculoskeletal Medicine & OMM
PROC: HZ42ZZZ Group Counseling for Substance Abuse Treatment, Cognitive-Behavioral (ICD-10-PCS; principal; 2019-03-22)
DX: F10.20 Alcohol dependence, uncomplicated (principal); F11.20 Opioid dependence, uncomplicated; F14.20 Cocaine dependence, uncomplicated; F17.210 Nicotine dependence, cigarettes, uncomplicated; I10 Essential (primary) hypertension; E11.9 Type 2 diabetes mellitus without complications; R01.1 Cardiac murmur, unspecified; Z79.84 Long term (current) use of oral hypoglycemic drugs; Z88.6 Allergy status to analgesic agent
CPT/HCPCS: 36415; 80053; 81003; 82962; 85027; 86593

== ENCOUNTER 2020-12-09 08:26 | Inpatient (IN) | payer OTHER ==
[2020-12-09] MEDS ORDERED: cloNIDine HCL 0.1 MG TABLET PO PRN (10:14)
[2020-12-09] MEDS ORDERED: MAGNESIUM CITRATE 300 ML BOTTLE PO PRN (10:14)
[2020-12-09] MEDS ORDERED: METHOCARBAMOL 500 MG TABLET PO PRN (10:14)
[2020-12-09] MEDS ORDERED: MAG HYDROX/AL HYDROX/SIMETH 30 ML UNIT-DOSE CUP PO PRN (10:14)
[2020-12-09] MEDS ORDERED: ONDANSETRON *ODT* 4 MG TABLET SL PRN (10:14)
[2020-12-09] MEDS ORDERED: MAGNESIUM HYDROX 2400MG/30ML ORAL SUSPENSION 30 ML CUP PO PRN (10:14)
[2020-12-09] MEDS ORDERED: ACETAMINOPHEN 325 MG TABLET (FP) PO PRN ×2 (10:14)
[2020-12-09] MEDS ORDERED: LORazepam 1 MG TABLET PO PRN (10:14)
[2020-12-09] MEDS ORDERED: MENTHOL/PHENOL 1 EACH UD MM PRN (10:14)
[2020-12-09] MEDS ORDERED: methaDONE HCL 10 MG TABLET (FOR DETOX USE ONLY) PO ONE (10:14)
[2020-12-09] MEDS ORDERED: NICOTINE 10 MG CARTRIDGE (INHALER) IH PRN (10:14)
[2020-12-09] MEDS ORDERED: COVID-19 VAC,AD26(JANSSEN)/PF 0.5 ML IM ONE (10:21)
[2020-12-09] MEDS ORDERED: COLLOIDAL OATMEAL 1 BAR EACH TP PRN (10:29)
[2020-12-09] MEDS ORDERED: methaDONE HCL 10 MG TABLET (FOR DETOX USE ONLY) ONE (13:12)
[2020-12-09] MEDS ORDERED: LORazepam 2 MG TABLET ONE ×2 (13:13→22:39)
[2020-12-09] MEDS: LORazepam 2 MG TABLET PO SCH ×2 (13:17→22:41)
[2020-12-09] MEDS: NICOTINE 21 MG/24 HOURS TOPICAL PATCH TD SCH (13:18)
[2020-12-09] MEDS: metFORMIN HCL 500 MG TABLET (FP) PO SCH (13:26)
[2020-12-09] MEDS: PRENATAL VITAMINS W/ FOLIC ACID TABLET (FP) PO SCH (13:26)
[2020-12-09] MEDS: THIAMINE HCL 100 MG TABLET (FP) PO SCH (22:42)
[2020-12-09] MEDS: MELATONIN 5 MG TABLETS PO SCH (22:42)
[2020-12-10] MEDS: LORazepam 2 MG TABLET PO SCH ×5 (01:39→22:28)
[2020-12-10] MEDS ORDERED: methaDONE HCL 10 MG TABLET (FOR DETOX USE ONLY) ONE (09:32)
[2020-12-10] MEDS: PRENATAL VITAMINS W/ FOLIC ACID TABLET (FP) PO SCH (10:59)
[2020-12-10] MEDS: metFORMIN HCL 500 MG TABLET (FP) PO SCH (11:00)
[2020-12-10] MEDS: NICOTINE 21 MG/24 HOURS TOPICAL PATCH TD SCH (11:01)
[2020-12-10] MEDS: THIAMINE HCL 100 MG TABLET (FP) PO SCH (22:28)
[2020-12-10] MEDS: MELATONIN 5 MG TABLETS PO SCH (22:28)
[2020-12-11] MEDS: LORazepam 1 MG TABLET PO SCH ×2 (05:51→11:00)
[2020-12-11 08:45] VITALS: BP 118/74; PULSE 61; TEMP 98.5
[2020-12-11] MEDS ORDERED: methaDONE HCL 10 MG TABLET (FOR DETOX USE ONLY) PO ONE (10:00)
[2020-12-11] MEDS: NICOTINE 21 MG/24 HOURS TOPICAL PATCH TD SCH (10:36)
[2020-12-11] MEDS: PRENATAL VITAMINS W/ FOLIC ACID TABLET (FP) PO SCH (10:36)
[2020-12-11] MEDS: metFORMIN HCL 500 MG TABLET (FP) PO SCH (10:36)
[2020-12-12] MEDS ORDERED: LORazepam 0.5 MG TABLET PO PRN
[2020-12-12] MEDS ORDERED: LORazepam 0.5 MG TABLET PO SCH (05:00)
[2020-12-13] MEDS ORDERED: LORazepam 0.5 MG TABLET PO ONE (05:00)
[2020-12-13] MEDS ORDERED: methaDONE HCL 10 MG TABLET (FOR DETOX USE ONLY) PO ONE (10:00)
== END 2020-12-11 09:57 | disposition left against medical advice (07) | DRG 770 ==
LOC: YASAS 08:26 → Y6N 12-10 00:10
PROVIDERS: ADMIT Allergy & Immunology; ATTEND Allergy & Immunology
PROC: HZ2ZZZZ Detoxification Services for Substance Abuse Treatment (ICD-10-PCS; principal; 2020-12-10)
DX: F11.23 Opioid dependence with withdrawal (principal); F10.230 Alcohol dependence with withdrawal, uncomplicated; F14.20 Cocaine dependence, uncomplicated; F17.210 Nicotine dependence, cigarettes, uncomplicated; F19.282 Other psychoactive substance dependence with psychoactive substance-induced sleep disorder; F19.24 Other psychoactive substance dependence with psychoactive substance-induced mood disorder; E11.9 Type 2 diabetes mellitus without complications; Z79.84 Long term (current) use of oral hypoglycemic drugs; I10 Essential (primary) hypertension; J45.909 Unspecified asthma, uncomplicated; M54.5 Low back pain; G89.29 Other chronic pain; R01.1 Cardiac murmur, unspecified; Z62.810 Personal history of physical and sexual abuse in childhood; I69.851 Hemiplegia and hemiparesis following other cerebrovascular disease affecting right dominant side; Z91.410 Personal history of adult physical and sexual abuse; Z88.6 Allergy status to analgesic agent; Z56.0 Unemployment, unspecified; Z59.0 Homelessness
CPT/HCPCS: 82962; C9803; U0003; U0005

== ENCOUNTER 2020-12-15 04:36 | Inpatient (IN) | payer OTHER ==
[2020-12-15 06:18] VITALS: BMI 25.7
[2020-12-15] MEDS ORDERED: ONDANSETRON *ODT* 4 MG TABLET SL PRN (11:32)
[2020-12-15] MEDS ORDERED: clonazePAM 0.5 MG ODT TABLETS SL PRN (11:32)
[2020-12-15] MEDS ORDERED: cloNIDine HCL 0.1 MG TABLET PO PRN (11:32)
[2020-12-15] MEDS ORDERED: METHOCARBAMOL 500 MG TABLET PO PRN (11:32)
[2020-12-15] MEDS ORDERED: ACETAMINOPHEN 325 MG TABLET (FP) PO PRN ×2 (11:32)
[2020-12-15] MEDS ORDERED: IBUPROFEN 400 MG TABLET (FP) PO PRN (11:32)
[2020-12-15] MEDS ORDERED: MAG HYDROX/AL HYDROX/SIMETH 30 ML UNIT-DOSE CUP PO PRN (11:32)
[2020-12-15] MEDS ORDERED: MAGNESIUM HYDROX 2400MG/30ML ORAL SUSPENSION 30 ML CUP PO PRN (11:32)
[2020-12-15] MEDS ORDERED: NICOTINE 10 MG CARTRIDGE (INHALER) IH PRN (11:32)
[2020-12-15] MEDS ORDERED: MAGNESIUM CITRATE 300 ML BOTTLE PO PRN (11:32)
[2020-12-15] MEDS ORDERED: BISMUTH SUBSALICYLATE 524 MG/30 ML PO PRN (11:32)
[2020-12-15] MEDS ORDERED: MENTHOL/PHENOL 1 EACH UD MM PRN (11:32)
[2020-12-15] MEDS ORDERED: methaDONE HCL 10 MG TABLET (FOR DETOX USE ONLY) PO ONE (12:15)
[2020-12-15] MEDS: PRENATAL VITAMINS W/ FOLIC ACID TABLET (FP) PO SCH (13:43)
[2020-12-15] MEDS: hydrOXYzine PAMOATE 25 MG CAPSULE (FP) PO SCH ×3 (14:04→22:23)
[2020-12-15] MEDS: THIAMINE HCL 100 MG TABLET (FP) PO SCH (22:23)
[2020-12-15] MEDS: MELATONIN 5 MG TABLETS PO SCH (22:23)
[2020-12-16] MEDS: hydrOXYzine PAMOATE 25 MG CAPSULE (FP) PO SCH ×5 (05:50→22:47)
[2020-12-16] MEDS: metFORMIN HCL 500 MG TABLET (FP) PO SCH (06:04)
[2020-12-16] MEDS ORDERED: methaDONE HCL 10 MG TABLET (FOR DETOX USE ONLY) ONE (09:11)
[2020-12-16] MEDS: PRENATAL VITAMINS W/ FOLIC ACID TABLET (FP) PO SCH (10:51)
[2020-12-16] MEDS: NICOTINE 14 MG/24 HOURS TOPICAL PATCH TD SCH (10:52)
[2020-12-16] MEDS: THIAMINE HCL 100 MG TABLET (FP) PO SCH (22:47)
[2020-12-16] MEDS: MELATONIN 5 MG TABLETS PO SCH (22:47)
[2020-12-17] MEDS: hydrOXYzine PAMOATE 25 MG CAPSULE (FP) PO SCH ×2 (07:06→10:40)
[2020-12-17] MEDS: metFORMIN HCL 500 MG TABLET (FP) PO SCH (07:07)
[2020-12-17] MEDS ORDERED: methaDONE HCL 10 MG TABLET (FOR DETOX USE ONLY) PO ONE (10:00)
[2020-12-17 10:39] VITALS: BP 135/82; PULSE 58; TEMP 97.1
[2020-12-17] MEDS: PRENATAL VITAMINS W/ FOLIC ACID TABLET (FP) PO SCH (10:41)
[2020-12-17] MEDS: NICOTINE 14 MG/24 HOURS TOPICAL PATCH TD SCH (10:41)
[2020-12-19] MEDS ORDERED: methaDONE HCL 10 MG TABLET (FOR DETOX USE ONLY) PO ONE (10:00)
== END 2020-12-17 11:52 | disposition left against medical advice (07) | DRG 770 ==
LOC: YASAS 04:36 → Y6N 12:00
PROVIDERS: ADMIT Allergy & Immunology; ATTEND Allergy & Immunology
PROC: HZ2ZZZZ Detoxification Services for Substance Abuse Treatment (ICD-10-PCS; principal; 2020-12-15)
DX: F11.23 Opioid dependence with withdrawal (principal); F10.230 Alcohol dependence with withdrawal, uncomplicated; F14.20 Cocaine dependence, uncomplicated; F17.210 Nicotine dependence, cigarettes, uncomplicated; F19.24 Other psychoactive substance dependence with psychoactive substance-induced mood disorder; I10 Essential (primary) hypertension; E11.9 Type 2 diabetes mellitus without complications; J45.909 Unspecified asthma, uncomplicated; M54.5 Low back pain; G89.29 Other chronic pain; I69.851 Hemiplegia and hemiparesis following other cerebrovascular disease affecting right dominant side; Z79.84 Long term (current) use of oral hypoglycemic drugs
CPT/HCPCS: 82962; C9803; J0735; Q0162; U0003; U0005

== ENCOUNTER 2021-01-19 14:25 | Inpatient (IN) | payer OTHER ==
[2021-01-19] MEDS ORDERED: ACETAMINOPHEN 325 MG TABLET (FP) PO PRN ×2 (20:01)
[2021-01-19] MEDS ORDERED: BISMUTH SUBSALICYLATE 524 MG/30 ML PO PRN (20:01)
[2021-01-19] MEDS ORDERED: NICOTINE 10 MG CARTRIDGE (INHALER) IH PRN (20:01)
[2021-01-19] MEDS ORDERED: ONDANSETRON *ODT* 4 MG TABLET SL PRN (20:01)
[2021-01-19] MEDS ORDERED: METHOCARBAMOL 500 MG TABLET PO PRN (20:01)
[2021-01-19] MEDS ORDERED: MAGNESIUM CITRATE 300 ML BOTTLE PO PRN (20:01)
[2021-01-19] MEDS ORDERED: diazePAM 5 MG TABLET PO PRN (20:01)
[2021-01-19] MEDS ORDERED: NALOXONE (NARCAN) HCL 4 MG/0.1 ML SPRAY NS PRN (20:01)
[2021-01-19] MEDS ORDERED: MAGNESIUM HYDROX 2400MG/30ML ORAL SUSPENSION 30 ML CUP PO PRN (20:01)
[2021-01-19] MEDS ORDERED: MAG HYDROX/AL HYDROX/SIMETH 30 ML UNIT-DOSE CUP PO PRN (20:01)
[2021-01-19] MEDS ORDERED: methaDONE HCL 10 MG TABLET (FOR DETOX USE ONLY) PO ONE (20:01)
[2021-01-19] MEDS ORDERED: hydrOXYzine PAMOATE 25 MG CAPSULE (FP) PO PRN (20:01)
[2021-01-19] MEDS ORDERED: cloNIDine HCL 0.1 MG TABLET PO PRN (20:01)
[2021-01-19] MEDS ORDERED: MENTHOL/PHENOL 1 EACH UD MM PRN (20:01)
[2021-01-20] MEDS: diazePAM 5 MG TABLET PO SCH ×5 (02:56→22:40)
[2021-01-20] MEDS: THIAMINE HCL 100 MG TABLET (FP) PO SCH ×2 (02:56→22:40)
[2021-01-20] MEDS: MELATONIN 5 MG TABLETS PO SCH ×2 (02:56→22:40)
[2021-01-20 03:09] VITALS: BMI 27.3
[2021-01-20] MEDS ORDERED: diazePAM 5 MG TABLET ONE ×2 (06:44→10:56)
[2021-01-20] MEDS ORDERED: methaDONE HCL 10 MG TABLET (FOR DETOX USE ONLY) ONE (10:56)
[2021-01-20] MEDS: PRENATAL VITAMINS W/ FOLIC ACID TABLET (FP) PO SCH (13:40)
[2021-01-20] MEDS: NICOTINE 21 MG/24 HOURS TOPICAL PATCH TD SCH (13:40)
[2021-01-21] MEDS: metFORMIN HCL 500 MG TABLET (FP) PO SCH ×2 (01:36→06:14)
[2021-01-21] MEDS: diazePAM 5 MG TABLET PO SCH ×3 (05:44→23:16)
[2021-01-21] MEDS ORDERED: methaDONE HCL 10 MG TABLET (FOR DETOX USE ONLY) PO ONE (10:00)
[2021-01-21] MEDS: NICOTINE 21 MG/24 HOURS TOPICAL PATCH TD SCH (10:33)
[2021-01-21] MEDS: PRENATAL VITAMINS W/ FOLIC ACID TABLET (FP) PO SCH (10:33)
[2021-01-21] MEDS ORDERED: MELATONIN 5 MG TABLETS PO SCH (22:00)
[2021-01-21] MEDS: THIAMINE HCL 100 MG TABLET (FP) PO SCH (23:17)
[2021-01-22] MEDS ORDERED: diazePAM 5 MG TABLET PO SCH (06:00)
[2021-01-22] MEDS: metFORMIN HCL 500 MG TABLET (FP) PO SCH (06:59)
[2021-01-22] MEDS ORDERED: methaDONE HCL 10 MG TABLET (FOR DETOX USE ONLY) ONE (08:56)
[2021-01-22] MEDS: PRENATAL VITAMINS W/ FOLIC ACID TABLET (FP) PO SCH (11:06)
[2021-01-22] MEDS: NICOTINE 21 MG/24 HOURS TOPICAL PATCH TD SCH (11:08)
[2021-01-22 12:10] LABS: ALBUMIN 3.2 g/dl (3.4-5.0); BLOOD UREA NITROGEN 18.7 mg/dL (7-18); CALCIUM 8.5 mg/dL (8.5-10.1)
[2021-01-22 12:13] LABS: HEMATOCRIT 39.4 % (35.4-49); HEMOGLOBIN 13.4 GM/dL (11.7-16.9); MCH 29.8 pg (25.7-33.7); MCHC 34.1 g/dl (32.0-35.9); MEAN CELL VOLUME 87.3 fl (80-96); MEAN PLT VOLUME 8.1 fl (7.5-11.1); PLATELET COUNT 282 10^3/uL (134-434); RBC 4.51 M/mm3 (4.00-5.60); RDW 12.9 % (11.9-15.9); WHITE BLOOD COUNT 12.3 K/mm3 (4.0-10.0)
[2021-01-22 12:13] LABS: CREATININE 0.8 mg/dL (0.55-1.3)
[2021-01-22 12:14] LABS: BILIRUBIN,TOTAL 0.4 mg/dL (0.2-1)
[2021-01-22 12:15] LABS: TOT PROT 6.8 g/dl (6.4-8.2)
[2021-01-22 13:04] VITALS: BP 120/69; PULSE 56; TEMP 97.3
[2021-01-23] MEDS ORDERED: diazePAM 5 MG TABLET PO ONE (06:00)
[2021-01-23] MEDS ORDERED: methaDONE HCL 10 MG TABLET (FOR DETOX USE ONLY) PO ONE (10:00)
== END 2021-01-22 17:05 | disposition left against medical advice (07) | DRG 770 ==
LOC: YASAS 14:25 → Y3N 01-20 12:47
PROVIDERS: ADMIT Allergy & Immunology; ATTEND Allergy & Immunology
PROC: HZ2ZZZZ Detoxification Services for Substance Abuse Treatment (ICD-10-PCS; principal; 2021-01-20)
DX: F11.23 Opioid dependence with withdrawal (principal); F10.230 Alcohol dependence with withdrawal, uncomplicated; F14.20 Cocaine dependence, uncomplicated; F17.210 Nicotine dependence, cigarettes, uncomplicated; I10 Essential (primary) hypertension; E11.9 Type 2 diabetes mellitus without complications; J45.909 Unspecified asthma, uncomplicated; I69.351 Hemiplegia and hemiparesis following cerebral infarction affecting right dominant side; Z79.82 Long term (current) use of aspirin; Z79.84 Long term (current) use of oral hypoglycemic drugs; Z88.6 Allergy status to analgesic agent; Z56.0 Unemployment, unspecified
CPT/HCPCS: 36415; 80053; 82962; 85027; 86780; 93005; 93010; C9803; U0003; U0005

== ENCOUNTER 2021-10-31 04:44 | Inpatient (IN) | payer OTHER ==
[2021-10-31 04:53] VITALS: BMI 27.3
[2021-10-31] MEDS ORDERED: DICYCLOMINE HCL 10 MG CAPSULE PO PRN (06:15)
[2021-10-31] MEDS ORDERED: ONDANSETRON *ODT* 4 MG TABLET SL PRN (06:15)
[2021-10-31] MEDS ORDERED: BENZOCAINE/MENTHOL (CHLORASEPTIC ) LOZENGE MM PRN (06:15)
[2021-10-31] MEDS ORDERED: NICOTINE 10 MG CARTRIDGE (INHALER) IH PRN (06:15)
[2021-10-31] MEDS ORDERED: MAGNESIUM CITRATE 300 ML BOTTLE PO PRN (06:15)
[2021-10-31] MEDS ORDERED: METHOCARBAMOL 500 MG TABLET PO PRN (06:15)
[2021-10-31] MEDS ORDERED: LOPERAMIDE HCL 2 MG CAPSULE PO PRN (06:15)
[2021-10-31] MEDS ORDERED: ACETAMINOPHEN 325 MG TABLET (FP) PO PRN ×2 (06:15)
[2021-10-31] MEDS ORDERED: MAGNESIUM HYDROX 2400MG/30ML ORAL SUSPENSION 30 ML CUP PO PRN (06:15)
[2021-10-31] MEDS ORDERED: MAG HYDROX/AL HYDROX/SIMETH 30 ML UNIT-DOSE CUP PO PRN (06:15)
[2021-10-31] MEDS: NICOTINE 14 MG/24 HOURS TOPICAL PATCH TD SCH (10:51)
[2021-10-31] MEDS: TRIAMCINOLONE ACET 0.1% CREAM 15 GM TUBE TP SCH ×2 (10:51→23:43)
[2021-10-31] MEDS: PRENATAL VITAMINS W/ FOLIC ACID TABLET (FP) PO SCH (10:51)
[2021-10-31] MEDS ORDERED: cloNIDine HCL 0.1 MG TABLET PO PRN (13:06)
[2021-10-31] MEDS ORDERED: methaDONE HCL 10 MG TABLET (FOR DETOX USE ONLY) PO ONE (13:06)
[2021-10-31] MEDS ORDERED: chlordiazePOXIDE HCL 25 MG CAPSULE PO PRN (13:06)
[2021-10-31] MEDS: chlordiazePOXIDE HCL 25 MG CAPSULE PO SCH ×2 (19:28→23:43)
[2021-10-31] MEDS: metFORMIN HCL 500 MG TABLET (FP) PO SCH (19:28)
[2021-10-31] MEDS: THIAMINE HCL 100 MG TABLET (FP) PO SCH (23:44)
[2021-10-31] MEDS: MELATONIN 5 MG TABLETS PO SCH (23:44)
[2021-11-01] MEDS: chlordiazePOXIDE HCL 25 MG CAPSULE PO SCH ×4 (05:52→22:59)
[2021-11-01] MEDS: metFORMIN HCL 500 MG TABLET (FP) PO SCH ×2 (06:41→17:50)
[2021-11-01] MEDS: glipiZIDE-XL 5 MG TAB.ER.24 PO SCH (06:43)
[2021-11-01] MEDS ORDERED: methaDONE HCL 10 MG TABLET (FOR DETOX USE ONLY) ONE (09:35)
[2021-11-01] MEDS ORDERED: PATIENT'S OWN MEDICATION (NON-FORMULARY) (Enalapril/Hydrochlorothiazide [Vaseretic 10-25 M PO SCH (10:00)
[2021-11-01 10:30] LABS: HEMATOCRIT 32.7 % (35.4-49); HEMOGLOBIN 11.1 GM/dL (11.7-16.9); MCH 30.1 pg (25.7-33.7); MCHC 33.9 g/dl (32.0-35.9); MEAN CELL VOLUME 88.7 fl (80-96); MEAN PLT VOLUME 8.1 fl (7.5-11.1); PLATELET COUNT 375 10^3/uL (134-434); RBC 3.69 M/mm3 (4.00-5.60); RDW 13.8 % (11.9-15.9); WHITE BLOOD COUNT 6.3 K/mm3 (4.0-10.0)
[2021-11-01 10:46] LABS: CALCIUM 8.3 mg/dL (8.5-10.1)
[2021-11-01 10:47] LABS: ALBUMIN 2.7 g/dl (3.4-5.0); BLOOD UREA NITROGEN 20.9 mg/dL (7-18)
[2021-11-01 10:50] LABS: CREATININE 0.8 mg/dL (0.55-1.3)
[2021-11-01 10:51] LABS: BILIRUBIN,TOTAL 0.8 mg/dL (0.2-1); TOT PROT 5.6 g/dl (6.4-8.2)
[2021-11-01] MEDS: HYDROCHLOROTHIAZIDE 25 MG TABLET (FP) PO SCH (11:09)
[2021-11-01] MEDS: ENALAPRIL MALEATE 10 MG TABLET PO SCH (11:09)
[2021-11-01] MEDS: PRENATAL VITAMINS W/ FOLIC ACID TABLET (FP) PO SCH (11:09)
[2021-11-01] MEDS: TRIAMCINOLONE ACET 0.1% CREAM 15 GM TUBE TP SCH ×2 (11:12→22:58)
[2021-11-01] MEDS: NICOTINE 14 MG/24 HOURS TOPICAL PATCH TD SCH (11:12)
[2021-11-01 14:50] LABS: HIV INTERPRETATION NEGATIVE (NEGATIVE)
[2021-11-01] MEDS: MELATONIN 5 MG TABLETS PO SCH (22:58)
[2021-11-01] MEDS: THIAMINE HCL 100 MG TABLET (FP) PO SCH (22:58)
[2021-11-02] MEDS: chlordiazePOXIDE HCL 25 MG CAPSULE PO SCH ×4 (07:17→22:19)
[2021-11-02] MEDS: metFORMIN HCL 500 MG TABLET (FP) PO SCH ×2 (07:17→18:03)
[2021-11-02] MEDS: glipiZIDE-XL 5 MG TAB.ER.24 PO SCH (07:17)
[2021-11-02] MEDS ORDERED: methaDONE HCL 10 MG TABLET (FOR DETOX USE ONLY) PO ONE (10:00)
[2021-11-02] MEDS: HYDROCHLOROTHIAZIDE 25 MG TABLET (FP) PO SCH (10:51)
[2021-11-02] MEDS: ENALAPRIL MALEATE 10 MG TABLET PO SCH (10:52)
[2021-11-02] MEDS: PRENATAL VITAMINS W/ FOLIC ACID TABLET (FP) PO SCH (10:52)
[2021-11-02] MEDS: NICOTINE 14 MG/24 HOURS TOPICAL PATCH TD SCH (10:54)
[2021-11-02] MEDS: TRIAMCINOLONE ACET 0.1% CREAM 15 GM TUBE TP SCH ×2 (10:56→22:19)
[2021-11-02] MEDS: MELATONIN 5 MG TABLETS PO SCH (22:19)
[2021-11-02] MEDS: THIAMINE HCL 100 MG TABLET (FP) PO SCH (22:19)
[2021-11-03] MEDS ORDERED: chlordiazePOXIDE HCL 10 MG CAPSULE PO PRN
[2021-11-03] MEDS: chlordiazePOXIDE HCL 10 MG CAPSULE PO SCH ×4 (05:35→22:43)
[2021-11-03] MEDS: metFORMIN HCL 500 MG TABLET (FP) PO SCH ×2 (08:25→18:16)
[2021-11-03] MEDS: glipiZIDE-XL 5 MG TAB.ER.24 PO SCH (08:25)
[2021-11-03] MEDS ORDERED: methaDONE HCL 10 MG TABLET (FOR DETOX USE ONLY) ONE (08:50)
[2021-11-03 09:39] VITALS: RESP 18
[2021-11-03] MEDS: PRENATAL VITAMINS W/ FOLIC ACID TABLET (FP) PO SCH (10:14)
[2021-11-03] MEDS: HYDROCHLOROTHIAZIDE 25 MG TABLET (FP) PO SCH (10:14)
[2021-11-03] MEDS: ENALAPRIL MALEATE 10 MG TABLET PO SCH (10:14)
[2021-11-03] MEDS: NICOTINE 14 MG/24 HOURS TOPICAL PATCH TD SCH (10:15)
[2021-11-03] MEDS: TRIAMCINOLONE ACET 0.1% CREAM 15 GM TUBE TP SCH ×2 (10:15→22:45)
[2021-11-03] MEDS: THIAMINE HCL 100 MG TABLET (FP) PO SCH (22:42)
[2021-11-03] MEDS: MELATONIN 5 MG TABLETS PO SCH (22:42)
[2021-11-04] MEDS ORDERED: chlordiazePOXIDE HCL 10 MG CAPSULE PO SCH (05:00)
[2021-11-04] MEDS: glipiZIDE-XL 5 MG TAB.ER.24 PO SCH (06:37)
[2021-11-04] MEDS: metFORMIN HCL 500 MG TABLET (FP) PO SCH (06:37)
[2021-11-04 09:56] VITALS: BP 99/61; PULSE 65; TEMP 98.7
[2021-11-04] MEDS ORDERED: methaDONE HCL 10 MG TABLET (FOR DETOX USE ONLY) PO ONE (10:00)
[2021-11-04] MEDS: ENALAPRIL MALEATE 10 MG TABLET PO SCH (10:20)
[2021-11-04] MEDS: HYDROCHLOROTHIAZIDE 25 MG TABLET (FP) PO SCH (10:20)
[2021-11-04] MEDS: PRENATAL VITAMINS W/ FOLIC ACID TABLET (FP) PO SCH (10:20)
[2021-11-04] MEDS: TRIAMCINOLONE ACET 0.1% CREAM 15 GM TUBE TP SCH (10:21)
[2021-11-04] MEDS: NICOTINE 14 MG/24 HOURS TOPICAL PATCH TD SCH (10:21)
[2021-11-05] MEDS ORDERED: chlordiazePOXIDE HCL 10 MG CAPSULE PO ONE (05:00)
== END 2021-11-04 12:37 | disposition home or self-care (01) | DRG 773 ==
LOC: YASAS 04:44 → Y3N 06:12
PROVIDERS: ADMIT Allergy & Immunology; ATTEND Surgery
PROC: HZ2ZZZZ Detoxification Services for Substance Abuse Treatment (ICD-10-PCS; principal; 2021-10-31)
DX: F11.23 Opioid dependence with withdrawal (principal); F10.230 Alcohol dependence with withdrawal, uncomplicated; I10 Essential (primary) hypertension; E11.9 Type 2 diabetes mellitus without complications; I69.354 Hemiplegia and hemiparesis following cerebral infarction affecting left non-dominant side; D64.9 Anemia, unspecified; R79.89 Other specified abnormal findings of blood chemistry; E46 Unspecified protein-calorie malnutrition; Z68.27 Body mass index [BMI] 27.0-27.9, adult; E83.51 Hypocalcemia; Z79.84 Long term (current) use of oral hypoglycemic drugs; Z88.6 Allergy status to analgesic agent; Z28.310 Unvaccinated for COVID-19; Z56.0 Unemployment, unspecified
CPT/HCPCS: 36415; 80053; 82962; 85027; 86780; 87389; 99281-25; C9803-CS; U0003; U0005

== ENCOUNTER 2022-05-01 09:51 | Inpatient (IN) | payer OTHER ==
[2022-05-01 10:34] VITALS: BMI 27.3
[2022-05-01] MEDS ORDERED: MAG HYDROX/AL HYDROX/SIMETH 30 ML UNIT-DOSE CUP PO PRN ×2 (11:03→11:22)
[2022-05-01] MEDS ORDERED: BISMUTH SUBSALICYLATE 524 MG/30 ML PO PRN (11:03)
[2022-05-01] MEDS ORDERED: ACETAMINOPHEN 325 MG TABLET (FP) PO PRN ×4 (11:03→11:22)
[2022-05-01] MEDS ORDERED: IBUPROFEN 600 MG TABLET (FP) PO PRN (11:03)
[2022-05-01] MEDS ORDERED: IBUPROFEN 400 MG TABLET (FP) PO PRN (11:03)
[2022-05-01] MEDS ORDERED: MAGNESIUM HYDROX 2400MG/30ML ORAL SUSPENSION 30 ML CUP PO PRN ×2 (11:03→11:22)
[2022-05-01] MEDS ORDERED: POLYETHYLENE GLYCOL (HEALTHYLAX) 3350 17 GM PACKET PO PRN ×2 (11:03→11:22)
[2022-05-01] MEDS ORDERED: LOPERAMIDE HCL 2 MG CAPSULE PO PRN ×2 (11:03→11:22)
[2022-05-01] MEDS ORDERED: NALOXONE HCL (KLOXXADO) 8 MG SPRAY NS PRN ×2 (11:03→11:22)
[2022-05-01] MEDS ORDERED: BENZOCAINE/MENTHOL (CHLORASEPTIC ) LOZENGE MM PRN ×2 (11:03→11:22)
[2022-05-01] MEDS ORDERED: ONDANSETRON *ODT* 4 MG TABLET SL PRN ×2 (11:03→11:22)
[2022-05-01] MEDS ORDERED: DICYCLOMINE HCL 10 MG CAPSULE PO PRN ×2 (11:03→11:22)
[2022-05-01] MEDS ORDERED: NICOTINE 10 MG CARTRIDGE (INHALER) IH PRN ×2 (11:03→11:22)
[2022-05-01] MEDS ORDERED: METHOCARBAMOL 500 MG TABLET PO PRN ×2 (11:03→11:22)
[2022-05-01] MEDS ORDERED: PRENATAL VITAMINS W/ FOLIC ACID TABLET (FP) PO SCH (11:15)
[2022-05-01] MEDS ORDERED: NICOTINE POLACRILEX 2 MG GUM BUC PRN (11:22)
[2022-05-01] MEDS ORDERED: chlordiazePOXIDE HCL 25 MG CAPSULE ONE (11:25)
[2022-05-01] MEDS ORDERED: HYDROCHLOROTHIAZIDE 25 MG TABLET (FP) PO SCH (11:30)
[2022-05-01] MEDS ORDERED: PATIENT'S OWN MEDICATION (NON-FORMULARY) (Enalapril/Hydrochlorothiazide [Vaseretic 10-25 M PO SCH (11:30)
[2022-05-01] MEDS ORDERED: ENALAPRIL MALEATE 10 MG TABLET PO SCH (11:30)
[2022-05-01] MEDS: LISINOPRIL 10 MG TABLET PO SCH (12:47)
[2022-05-01] MEDS: metFORMIN HCL 500 MG TABLET (FP) PO SCH (12:47)
[2022-05-01] MEDS: HYDROCHLOROTHIAZIDE 25 MG TABLET (FP) PO SCH (12:47)
[2022-05-01] MEDS: PRENATAL VITAMINS W/ FOLIC ACID TABLET (FP) PO SCH (12:48)
[2022-05-01] MEDS: glipiZIDE-XL 5 MG TAB.ER.24 PO SCH (12:48)
[2022-05-01 18:40] LABS: HEMOGLOBIN 12.5 GM/dL (11.7-16.9); MCH 29.3 pg (25.7-33.7); MEAN CELL VOLUME 88.9 fl (80-96); MEAN PLT VOLUME 8.8 fl (7.5-11.1); PLATELET COUNT 207 10^3/uL (134-434); RBC 4.27 M/mm3 (4.00-5.60); RDW 14.8 % (11.9-15.9); WHITE BLOOD COUNT 8.5 K/mm3 (4.0-10.0)
[2022-05-01 18:53] LABS: CALCIUM 8.6 mg/dL (8.5-10.1)
[2022-05-01 18:54] LABS: ALBUMIN 3.8 g/dl (3.4-5.0)
[2022-05-01 18:55] LABS: BILIRUBIN,TOTAL 0.4 mg/dL (0.2-1)
[2022-05-01 18:56] LABS: TOT PROT 7.1 g/dl (6.4-8.2)
[2022-05-01] MEDS: chlordiazePOXIDE HCL 25 MG CAPSULE PO SCH ×3 (19:02→23:10)
[2022-05-01] MEDS: INSULIN SLIDING SCALE (NOVOLOG) 1 VIAL SQ SCH ×2 (20:02→22:28)
[2022-05-01] MEDS ORDERED: MELATONIN 5 MG TABLETS PO SCH (22:00)
[2022-05-01] MEDS ORDERED: THIAMINE HCL 100 MG TABLET (FP) PO SCH (22:00)
[2022-05-01] MEDS: THIAMINE HCL 100 MG TABLET (FP) PO SCH (22:23)
[2022-05-01] MEDS: MELATONIN 5 MG TABLETS PO SCH (22:23)
[2022-05-02] MEDS: chlordiazePOXIDE HCL 25 MG CAPSULE PO SCH ×4 (05:42→22:24)
[2022-05-02] MEDS: INSULIN SLIDING SCALE (NOVOLOG) 1 VIAL SQ SCH ×4 (06:20→22:23)
[2022-05-02] MEDS: glipiZIDE-XL 5 MG TAB.ER.24 PO SCH (06:20)
[2022-05-02] MEDS: metFORMIN HCL 500 MG TABLET (FP) PO SCH (06:20)
[2022-05-02] MEDS: HYDROCHLOROTHIAZIDE 25 MG TABLET (FP) PO SCH (09:52)
[2022-05-02] MEDS: LISINOPRIL 10 MG TABLET PO SCH (09:52)
[2022-05-02] MEDS: PRENATAL VITAMINS W/ FOLIC ACID TABLET (FP) PO SCH (09:52)
[2022-05-02] MEDS: methaDONE HCL 40 MG DISPERSABLE TABLET PO SCH (09:54)
[2022-05-02] MEDS: MELATONIN 5 MG TABLETS PO SCH ×2 (22:23→22:38)
[2022-05-02] MEDS: THIAMINE HCL 100 MG TABLET (FP) PO SCH (22:24)
[2022-05-03] MEDS: metFORMIN HCL 500 MG TABLET (FP) PO SCH (06:19)
[2022-05-03] MEDS: glipiZIDE-XL 5 MG TAB.ER.24 PO SCH (06:28)
[2022-05-03] MEDS: chlordiazePOXIDE HCL 25 MG CAPSULE PO SCH ×4 (07:07→23:01)
[2022-05-03] MEDS: INSULIN SLIDING SCALE (NOVOLOG) 1 VIAL SQ SCH ×4 (07:08→22:59)
[2022-05-03] MEDS: methaDONE HCL 40 MG DISPERSABLE TABLET PO SCH (07:28)
[2022-05-03] MEDS: HYDROCHLOROTHIAZIDE 25 MG TABLET (FP) PO SCH (10:30)
[2022-05-03] MEDS: LISINOPRIL 10 MG TABLET PO SCH (10:30)
[2022-05-03] MEDS: PRENATAL VITAMINS W/ FOLIC ACID TABLET (FP) PO SCH (11:04)
[2022-05-03] MEDS: MELATONIN 5 MG TABLETS PO SCH (22:31)
[2022-05-03] MEDS: THIAMINE HCL 100 MG TABLET (FP) PO SCH (22:31)
[2022-05-04] MEDS: methaDONE HCL 40 MG DISPERSABLE TABLET PO SCH (06:29)
[2022-05-04] MEDS: glipiZIDE-XL 5 MG TAB.ER.24 PO SCH (06:31)
[2022-05-04] MEDS: metFORMIN HCL 500 MG TABLET (FP) PO SCH (06:31)
[2022-05-04] MEDS: chlordiazePOXIDE HCL 10 MG CAPSULE PO SCH ×4 (06:32→22:22)
[2022-05-04] MEDS: INSULIN SLIDING SCALE (NOVOLOG) 1 VIAL SQ SCH ×4 (06:50→22:25)
[2022-05-04] MEDS: PRENATAL VITAMINS W/ FOLIC ACID TABLET (FP) PO SCH (10:44)
[2022-05-04] MEDS: MELATONIN 5 MG TABLETS PO SCH (22:24)
[2022-05-04] MEDS: THIAMINE HCL 100 MG TABLET (FP) PO SCH (22:25)
[2022-05-05] MEDS: chlordiazePOXIDE HCL 10 MG CAPSULE PO SCH ×2 (05:24→18:00)
[2022-05-05] MEDS: metFORMIN HCL 500 MG TABLET (FP) PO SCH (06:50)
[2022-05-05] MEDS: glipiZIDE-XL 5 MG TAB.ER.24 PO SCH (06:50)
[2022-05-05] MEDS: methaDONE HCL 40 MG DISPERSABLE TABLET PO SCH (06:50)
[2022-05-05] MEDS: INSULIN SLIDING SCALE (NOVOLOG) 1 VIAL SQ SCH ×4 (07:00→22:33)
[2022-05-05] MEDS: PRENATAL VITAMINS W/ FOLIC ACID TABLET (FP) PO SCH (10:22)
[2022-05-05] MEDS: THIAMINE HCL 100 MG TABLET (FP) PO SCH (22:32)
[2022-05-05] MEDS: MELATONIN 5 MG TABLETS PO SCH (22:32)
[2022-05-06] MEDS ORDERED: chlordiazePOXIDE HCL 10 MG CAPSULE PO ONE (05:00)
[2022-05-06] MEDS: methaDONE HCL 40 MG DISPERSABLE TABLET PO SCH (05:27)
[2022-05-06] MEDS: metFORMIN HCL 500 MG TABLET (FP) PO SCH (06:50)
[2022-05-06] MEDS: INSULIN SLIDING SCALE (NOVOLOG) 1 VIAL SQ SCH ×2 (06:50→11:34)
[2022-05-06] MEDS: glipiZIDE-XL 5 MG TAB.ER.24 PO SCH (06:50)
[2022-05-06 07:09] VITALS: RESP 16
[2022-05-06 09:57] VITALS: BP 106/65; PULSE 70; TEMP 97.3
[2022-05-06] MEDS: PRENATAL VITAMINS W/ FOLIC ACID TABLET (FP) PO SCH (10:05)
== END 2022-05-06 12:32 | disposition other institution (70) | DRG 772 ==
LOC: YASAS 09:51 → Y3N 11:23
PROVIDERS: ADMIT Allergy & Immunology; ATTEND Family Medicine
PROC: HZ42ZZZ Group Counseling for Substance Abuse Treatment, Cognitive-Behavioral (ICD-10-PCS; principal; 2022-05-01)
DX: F11.20 Opioid dependence, uncomplicated (principal); F10.20 Alcohol dependence, uncomplicated; F14.20 Cocaine dependence, uncomplicated; F17.210 Nicotine dependence, cigarettes, uncomplicated; F19.282 Other psychoactive substance dependence with psychoactive substance-induced sleep disorder; F19.24 Other psychoactive substance dependence with psychoactive substance-induced mood disorder; F41.8 Other specified anxiety disorders; I10 Essential (primary) hypertension; E11.9 Type 2 diabetes mellitus without complications; Z79.84 Long term (current) use of oral hypoglycemic drugs; I69.851 Hemiplegia and hemiparesis following other cerebrovascular disease affecting right dominant side; Z88.6 Allergy status to analgesic agent; Z28.310 Unvaccinated for COVID-19; Z28.9 Immunization not carried out for unspecified reason
CPT/HCPCS: 36415; 80053; 82962; 85027; 86780; 87811; C9803-CS; U0003; U0005

== ENCOUNTER 2022-05-06 12:47 | Inpatient (IN) | payer OTHER ==
[2022-05-06] MEDS ORDERED: PNEUMOC 20-VAL CONJ-DIP CRM/PF 0.5 ML SYRINGE IM ONE (14:13)
[2022-05-06] MEDS ORDERED: IBUPROFEN 400 MG TABLET (FP) PO PRN (15:09)
[2022-05-06] MEDS ORDERED: MAGNESIUM HYDROX 2400MG/30ML ORAL SUSPENSION 30 ML CUP PO PRN (15:09)
[2022-05-06] MEDS ORDERED: MAG HYDROX/AL HYDROX/SIMETH 30 ML UNIT-DOSE CUP PO PRN (15:09)
[2022-05-06] MEDS ORDERED: guaiFENesin 200 MG/10 ML 10 ML UNIT-DOSE CUPS PO PRN (15:09)
[2022-05-06] MEDS ORDERED: POLYETHYLENE GLYCOL (HEALTHYLAX) 3350 17 GM PACKET PO PRN (15:09)
[2022-05-06] MEDS ORDERED: P-EPHED 60MG/TRIPROLIDI 2.5MG TABLET PO PRN (15:09)
[2022-05-06] MEDS ORDERED: LOPERAMIDE HCL 2 MG CAPSULE PO PRN (15:09)
[2022-05-06] MEDS ORDERED: BENZOCAINE/MENTHOL (CHLORASEPTIC ) LOZENGE MM PRN (15:09)
[2022-05-06] MEDS ORDERED: ACETAMINOPHEN 325 MG TABLET (FP) PO PRN (15:09)
[2022-05-06] MEDS: MELATONIN 5 MG TABLETS PO SCH (21:21)
[2022-05-06] MEDS: THIAMINE HCL 100 MG TABLET (FP) PO SCH (21:21)
[2022-05-07] MEDS: metFORMIN HCL 500 MG TABLET (FP) PO SCH (06:19)
[2022-05-07] MEDS: methaDONE HCL 40 MG DISPERSABLE TABLET PO SCH (06:19)
[2022-05-07] MEDS ORDERED: TUBERCULIN PPD 5 TU/0.1ML VIAL ID ONE ×2 (08:52→08:54)
[2022-05-07] MEDS: PRENATAL VITAMINS W/ FOLIC ACID TABLET (FP) PO SCH (09:02)
[2022-05-07] MEDS: glipiZIDE-XL 5 MG TAB.ER.24 PO SCH (09:03)
[2022-05-07] MEDS: NICOTINE 7 MG/24 HOURS TOPICAL PATCH TD SCH (09:03)
[2022-05-07] MEDS: NICOTINE 10 MG CARTRIDGE (INHALER) IH PRN (09:06)
[2022-05-07] MEDS: LISINOPRIL 10 MG TABLET PO SCH (10:17)
[2022-05-07] MEDS: MELATONIN 5 MG TABLETS PO SCH (21:16)
[2022-05-07] MEDS: THIAMINE HCL 100 MG TABLET (FP) PO SCH (21:16)
[2022-05-08] MEDS: methaDONE HCL 40 MG DISPERSABLE TABLET PO SCH (06:27)
[2022-05-08] MEDS: glipiZIDE-XL 5 MG TAB.ER.24 PO SCH (06:27)
[2022-05-08] MEDS: metFORMIN HCL 500 MG TABLET (FP) PO SCH (06:27)
[2022-05-08] MEDS: NICOTINE 7 MG/24 HOURS TOPICAL PATCH TD SCH (10:21)
[2022-05-08] MEDS: LISINOPRIL 10 MG TABLET PO SCH (10:21)
[2022-05-08] MEDS: NICOTINE 10 MG CARTRIDGE (INHALER) IH PRN (10:21)
[2022-05-08] MEDS: PRENATAL VITAMINS W/ FOLIC ACID TABLET (FP) PO SCH (10:21)
[2022-05-08] MEDS: MELATONIN 5 MG TABLETS PO SCH (21:24)
[2022-05-08] MEDS: THIAMINE HCL 100 MG TABLET (FP) PO SCH (21:24)
[2022-05-09] MEDS: metFORMIN HCL 500 MG TABLET (FP) PO SCH (06:06)
[2022-05-09] MEDS: NICOTINE 10 MG CARTRIDGE (INHALER) IH PRN ×3 (06:06→21:14)
[2022-05-09] MEDS: glipiZIDE-XL 5 MG TAB.ER.24 PO SCH (06:06)
[2022-05-09] MEDS: methaDONE HCL 40 MG DISPERSABLE TABLET PO SCH (06:08)
[2022-05-09] MEDS: NICOTINE 7 MG/24 HOURS TOPICAL PATCH TD SCH (10:03)
[2022-05-09] MEDS: PRENATAL VITAMINS W/ FOLIC ACID TABLET (FP) PO SCH (10:03)
[2022-05-09] MEDS: LISINOPRIL 10 MG TABLET PO SCH (10:04)
[2022-05-09] MEDS: THIAMINE HCL 100 MG TABLET (FP) PO SCH (21:14)
[2022-05-09] MEDS: MELATONIN 5 MG TABLETS PO SCH (21:14)
[2022-05-10] MEDS: metFORMIN HCL 500 MG TABLET (FP) PO SCH (06:09)
[2022-05-10] MEDS: glipiZIDE-XL 5 MG TAB.ER.24 PO SCH (06:10)
[2022-05-10] MEDS: methaDONE HCL 40 MG DISPERSABLE TABLET PO SCH (06:13)
[2022-05-10] MEDS: PRENATAL VITAMINS W/ FOLIC ACID TABLET (FP) PO SCH (09:47)
[2022-05-10] MEDS: LISINOPRIL 10 MG TABLET PO SCH (09:47)
[2022-05-10] MEDS: NICOTINE 7 MG/24 HOURS TOPICAL PATCH TD SCH (09:47)
[2022-05-10] MEDS: NICOTINE 10 MG CARTRIDGE (INHALER) IH PRN ×2 (09:47→21:29)
[2022-05-10] MEDS: MELATONIN 5 MG TABLETS PO SCH (21:28)
[2022-05-10] MEDS: THIAMINE HCL 100 MG TABLET (FP) PO SCH (21:28)
[2022-05-11] MEDS: glipiZIDE-XL 5 MG TAB.ER.24 PO SCH (06:01)
[2022-05-11] MEDS: metFORMIN HCL 500 MG TABLET (FP) PO SCH (06:01)
[2022-05-11] MEDS: methaDONE HCL 40 MG DISPERSABLE TABLET PO SCH (06:01)
[2022-05-11] MEDS: NICOTINE 10 MG CARTRIDGE (INHALER) IH PRN ×2 (09:42→21:20)
[2022-05-11] MEDS: PRENATAL VITAMINS W/ FOLIC ACID TABLET (FP) PO SCH (09:42)
[2022-05-11] MEDS: NICOTINE 7 MG/24 HOURS TOPICAL PATCH TD SCH (09:43)
[2022-05-11] MEDS: LISINOPRIL 10 MG TABLET PO SCH (09:43)
[2022-05-11] MEDS: THIAMINE HCL 100 MG TABLET (FP) PO SCH (21:19)
[2022-05-11] MEDS: MELATONIN 5 MG TABLETS PO SCH (21:20)
[2022-05-12] MEDS: methaDONE HCL 40 MG DISPERSABLE TABLET PO SCH (05:48)
[2022-05-12] MEDS: metFORMIN HCL 500 MG TABLET (FP) PO SCH (06:13)
[2022-05-12] MEDS: glipiZIDE-XL 5 MG TAB.ER.24 PO SCH (06:13)
[2022-05-12] MEDS: NICOTINE 7 MG/24 HOURS TOPICAL PATCH TD SCH (09:31)
[2022-05-12] MEDS: PRENATAL VITAMINS W/ FOLIC ACID TABLET (FP) PO SCH (09:31)
[2022-05-12] MEDS: NICOTINE 10 MG CARTRIDGE (INHALER) IH PRN (09:31)
[2022-05-12] MEDS: LISINOPRIL 10 MG TABLET PO SCH (09:32)
[2022-05-12] MEDS: MELATONIN 5 MG TABLETS PO SCH (21:16)
[2022-05-12] MEDS: THIAMINE HCL 100 MG TABLET (FP) PO SCH (21:16)
[2022-05-13] MEDS: methaDONE HCL 40 MG DISPERSABLE TABLET PO SCH (06:41)
[2022-05-13] MEDS: metFORMIN HCL 500 MG TABLET (FP) PO SCH (06:41)
[2022-05-13] MEDS: glipiZIDE-XL 5 MG TAB.ER.24 PO SCH (10:34)
[2022-05-13] MEDS: PRENATAL VITAMINS W/ FOLIC ACID TABLET (FP) PO SCH (10:34)
[2022-05-13] MEDS: NICOTINE 10 MG CARTRIDGE (INHALER) IH PRN (10:35)
[2022-05-13] MEDS: NICOTINE 7 MG/24 HOURS TOPICAL PATCH TD SCH (10:35)
[2022-05-13] MEDS: LISINOPRIL 10 MG TABLET PO SCH (10:35)
[2022-05-13] MEDS: THIAMINE HCL 100 MG TABLET (FP) PO SCH (22:23)
[2022-05-13] MEDS: MELATONIN 5 MG TABLETS PO SCH (22:23)
[2022-05-14] MEDS: metFORMIN HCL 500 MG TABLET (FP) PO SCH (06:29)
[2022-05-14] MEDS: methaDONE HCL 40 MG DISPERSABLE TABLET PO SCH (06:29)
[2022-05-14] MEDS: glipiZIDE-XL 5 MG TAB.ER.24 PO SCH (09:44)
[2022-05-14] MEDS: PRENATAL VITAMINS W/ FOLIC ACID TABLET (FP) PO SCH (09:45)
[2022-05-14] MEDS: NICOTINE 7 MG/24 HOURS TOPICAL PATCH TD SCH (09:45)
[2022-05-14] MEDS: LISINOPRIL 10 MG TABLET PO SCH (09:45)
[2022-05-14] MEDS: NICOTINE 10 MG CARTRIDGE (INHALER) IH PRN ×2 (09:46→19:15)
[2022-05-14] MEDS: MELATONIN 5 MG TABLETS PO SCH (21:17)
[2022-05-14] MEDS: THIAMINE HCL 100 MG TABLET (FP) PO SCH (21:17)
[2022-05-15] MEDS: metFORMIN HCL 500 MG TABLET (FP) PO SCH (06:18)
[2022-05-15] MEDS: methaDONE HCL 40 MG DISPERSABLE TABLET PO SCH (06:20)
[2022-05-15] MEDS: glipiZIDE-XL 5 MG TAB.ER.24 PO SCH (06:20)
[2022-05-15] MEDS: PRENATAL VITAMINS W/ FOLIC ACID TABLET (FP) PO SCH (10:14)
[2022-05-15] MEDS: NICOTINE 7 MG/24 HOURS TOPICAL PATCH TD SCH (10:15)
[2022-05-15] MEDS: NICOTINE 10 MG CARTRIDGE (INHALER) IH PRN (10:15)
[2022-05-15] MEDS: LISINOPRIL 10 MG TABLET PO SCH (11:09)
[2022-05-15] MEDS: MELATONIN 5 MG TABLETS PO SCH (21:13)
[2022-05-15] MEDS: THIAMINE HCL 100 MG TABLET (FP) PO SCH (21:13)
[2022-05-16] MEDS: metFORMIN HCL 500 MG TABLET (FP) PO SCH (06:17)
[2022-05-16] MEDS: glipiZIDE-XL 5 MG TAB.ER.24 PO SCH (06:17)
[2022-05-16] MEDS: methaDONE HCL 40 MG DISPERSABLE TABLET PO SCH (06:18)
[2022-05-16] MEDS: NICOTINE 10 MG CARTRIDGE (INHALER) IH PRN ×3 (06:54→21:19)
[2022-05-16] MEDS: NICOTINE 7 MG/24 HOURS TOPICAL PATCH TD SCH (10:16)
[2022-05-16] MEDS: LISINOPRIL 10 MG TABLET PO SCH (10:17)
[2022-05-16] MEDS: PRENATAL VITAMINS W/ FOLIC ACID TABLET (FP) PO SCH (10:18)
[2022-05-16] MEDS: THIAMINE HCL 100 MG TABLET (FP) PO SCH (21:19)
[2022-05-16] MEDS: MELATONIN 5 MG TABLETS PO SCH (21:19)
[2022-05-17] MEDS: metFORMIN HCL 500 MG TABLET (FP) PO SCH (06:51)
[2022-05-17] MEDS: methaDONE HCL 40 MG DISPERSABLE TABLET PO SCH (06:52)
[2022-05-17] MEDS: glipiZIDE-XL 5 MG TAB.ER.24 PO SCH (07:27)
[2022-05-17] MEDS: NICOTINE 10 MG CARTRIDGE (INHALER) IH PRN (09:44)
[2022-05-17] MEDS: LISINOPRIL 10 MG TABLET PO SCH (09:44)
[2022-05-17] MEDS: PRENATAL VITAMINS W/ FOLIC ACID TABLET (FP) PO SCH (09:44)
[2022-05-17] MEDS: NICOTINE 7 MG/24 HOURS TOPICAL PATCH TD SCH (10:27)
[2022-05-17] MEDS: THIAMINE HCL 100 MG TABLET (FP) PO SCH (21:25)
[2022-05-17] MEDS: MELATONIN 5 MG TABLETS PO SCH (21:25)
[2022-05-18] MEDS: methaDONE HCL 40 MG DISPERSABLE TABLET PO SCH (05:53)
[2022-05-18] MEDS: metFORMIN HCL 500 MG TABLET (FP) PO SCH (06:01)
[2022-05-18] MEDS: NICOTINE 10 MG CARTRIDGE (INHALER) IH PRN ×3 (06:55→18:20)
[2022-05-18] MEDS: glipiZIDE-XL 5 MG TAB.ER.24 PO SCH ×2 (07:14→08:44)
[2022-05-18] MEDS: LISINOPRIL 10 MG TABLET PO SCH (10:22)
[2022-05-18] MEDS: PRENATAL VITAMINS W/ FOLIC ACID TABLET (FP) PO SCH (10:22)
[2022-05-18] MEDS: NICOTINE 7 MG/24 HOURS TOPICAL PATCH TD SCH (10:22)
[2022-05-18] MEDS: MELATONIN 5 MG TABLETS PO SCH (21:07)
[2022-05-18] MEDS: THIAMINE HCL 100 MG TABLET (FP) PO SCH (21:07)
[2022-05-19] MEDS: methaDONE HCL 40 MG DISPERSABLE TABLET PO SCH (06:12)
[2022-05-19] MEDS: metFORMIN HCL 500 MG TABLET (FP) PO SCH (06:13)
[2022-05-19] MEDS: glipiZIDE-XL 5 MG TAB.ER.24 PO SCH (06:13)
[2022-05-19] MEDS: NICOTINE 10 MG CARTRIDGE (INHALER) IH PRN ×2 (06:14→10:02)
[2022-05-19] MEDS: PRENATAL VITAMINS W/ FOLIC ACID TABLET (FP) PO SCH (10:01)
[2022-05-19] MEDS: NICOTINE 7 MG/24 HOURS TOPICAL PATCH TD SCH (10:01)
[2022-05-19] MEDS: LISINOPRIL 10 MG TABLET PO SCH (10:02)
[2022-05-19] MEDS: MELATONIN 5 MG TABLETS PO SCH (21:21)
[2022-05-19] MEDS: THIAMINE HCL 100 MG TABLET (FP) PO SCH (21:21)
[2022-05-20] MEDS: methaDONE HCL 40 MG DISPERSABLE TABLET PO SCH (05:50)
[2022-05-20] MEDS: glipiZIDE-XL 5 MG TAB.ER.24 PO SCH (06:49)
[2022-05-20] MEDS: metFORMIN HCL 500 MG TABLET (FP) PO SCH (06:49)
[2022-05-20] MEDS: PRENATAL VITAMINS W/ FOLIC ACID TABLET (FP) PO SCH (10:45)
[2022-05-20] MEDS: NICOTINE 10 MG CARTRIDGE (INHALER) IH PRN ×2 (10:46→19:05)
[2022-05-20] MEDS: NICOTINE 7 MG/24 HOURS TOPICAL PATCH TD SCH (10:46)
[2022-05-20] MEDS: LISINOPRIL 10 MG TABLET PO SCH (10:46)
[2022-05-20] MEDS: THIAMINE HCL 100 MG TABLET (FP) PO SCH (21:21)
[2022-05-20] MEDS: MELATONIN 5 MG TABLETS PO SCH (21:21)
[2022-05-21] MEDS: glipiZIDE-XL 5 MG TAB.ER.24 PO SCH (06:40)
[2022-05-21] MEDS: metFORMIN HCL 500 MG TABLET (FP) PO SCH (06:41)
[2022-05-21] MEDS: methaDONE HCL 40 MG DISPERSABLE TABLET PO SCH (06:41)
[2022-05-21] MEDS: PRENATAL VITAMINS W/ FOLIC ACID TABLET (FP) PO SCH (09:49)
[2022-05-21] MEDS: NICOTINE 7 MG/24 HOURS TOPICAL PATCH TD SCH (09:49)
[2022-05-21] MEDS: NICOTINE 10 MG CARTRIDGE (INHALER) IH PRN (09:50)
[2022-05-21] MEDS: LISINOPRIL 10 MG TABLET PO SCH (09:50)
[2022-05-21] MEDS: THIAMINE HCL 100 MG TABLET (FP) PO SCH (21:20)
[2022-05-21] MEDS: MELATONIN 5 MG TABLETS PO SCH (21:20)
[2022-05-22] MEDS: methaDONE HCL 40 MG DISPERSABLE TABLET PO SCH (06:06)
[2022-05-22] MEDS: NICOTINE 10 MG CARTRIDGE (INHALER) IH PRN ×3 (06:07→21:18)
[2022-05-22] MEDS: metFORMIN HCL 500 MG TABLET (FP) PO SCH (06:07)
[2022-05-22] MEDS: glipiZIDE-XL 5 MG TAB.ER.24 PO SCH (06:07)
[2022-05-22] MEDS: PRENATAL VITAMINS W/ FOLIC ACID TABLET (FP) PO SCH (10:33)
[2022-05-22] MEDS: LISINOPRIL 10 MG TABLET PO SCH (10:33)
[2022-05-22] MEDS: NICOTINE 7 MG/24 HOURS TOPICAL PATCH TD SCH (10:33)
[2022-05-22] MEDS: THIAMINE HCL 100 MG TABLET (FP) PO SCH (21:18)
[2022-05-22] MEDS: MELATONIN 5 MG TABLETS PO SCH (21:18)
[2022-05-23] MEDS: NICOTINE 10 MG CARTRIDGE (INHALER) IH PRN ×2 (06:50→10:43)
[2022-05-23] MEDS: methaDONE HCL 40 MG DISPERSABLE TABLET PO SCH (06:52)
[2022-05-23] MEDS: metFORMIN HCL 500 MG TABLET (FP) PO SCH (06:52)
[2022-05-23] MEDS: glipiZIDE-XL 5 MG TAB.ER.24 PO SCH (06:52)
[2022-05-23] MEDS: LISINOPRIL 10 MG TABLET PO SCH (10:42)
[2022-05-23] MEDS: PRENATAL VITAMINS W/ FOLIC ACID TABLET (FP) PO SCH (10:42)
[2022-05-23] MEDS: NICOTINE 7 MG/24 HOURS TOPICAL PATCH TD SCH (10:43)
[2022-05-23] MEDS: THIAMINE HCL 100 MG TABLET (FP) PO SCH (21:42)
[2022-05-23] MEDS: MELATONIN 5 MG TABLETS PO SCH (21:42)
[2022-05-24] MEDS: metFORMIN HCL 500 MG TABLET (FP) PO SCH (06:09)
[2022-05-24] MEDS: glipiZIDE-XL 5 MG TAB.ER.24 PO SCH (06:09)
[2022-05-24] MEDS: methaDONE HCL 40 MG DISPERSABLE TABLET PO SCH (06:10)
[2022-05-24] MEDS: NICOTINE 10 MG CARTRIDGE (INHALER) IH PRN ×3 (06:10→21:33)
[2022-05-24] MEDS: NICOTINE 7 MG/24 HOURS TOPICAL PATCH TD SCH (10:35)
[2022-05-24] MEDS: PRENATAL VITAMINS W/ FOLIC ACID TABLET (FP) PO SCH (10:35)
[2022-05-24] MEDS: LISINOPRIL 10 MG TABLET PO SCH (10:36)
[2022-05-24] MEDS: THIAMINE HCL 100 MG TABLET (FP) PO SCH (21:33)
[2022-05-24] MEDS: MELATONIN 5 MG TABLETS PO SCH (21:33)
[2022-05-25] MEDS: metFORMIN HCL 500 MG TABLET (FP) PO SCH (06:17)
[2022-05-25] MEDS: methaDONE HCL 40 MG DISPERSABLE TABLET PO SCH (06:17)
[2022-05-25] MEDS: glipiZIDE-XL 5 MG TAB.ER.24 PO SCH (06:18)
[2022-05-25] MEDS: NICOTINE 7 MG/24 HOURS TOPICAL PATCH TD SCH (10:32)
[2022-05-25] MEDS: PRENATAL VITAMINS W/ FOLIC ACID TABLET (FP) PO SCH (10:32)
[2022-05-25] MEDS: NICOTINE 10 MG CARTRIDGE (INHALER) IH PRN ×2 (10:33→21:09)
[2022-05-25] MEDS: LISINOPRIL 10 MG TABLET PO SCH (10:33)
[2022-05-25] MEDS: MELATONIN 5 MG TABLETS PO SCH (21:08)
[2022-05-25] MEDS: THIAMINE HCL 100 MG TABLET (FP) PO SCH (21:08)
[2022-05-26] MEDS: methaDONE HCL 40 MG DISPERSABLE TABLET PO SCH (06:13)
[2022-05-26] MEDS: metFORMIN HCL 500 MG TABLET (FP) PO SCH (06:14)
[2022-05-26] MEDS: glipiZIDE-XL 5 MG TAB.ER.24 PO SCH (06:14)
[2022-05-26] MEDS: PRENATAL VITAMINS W/ FOLIC ACID TABLET (FP) PO SCH (10:13)
[2022-05-26] MEDS: NICOTINE 7 MG/24 HOURS TOPICAL PATCH TD SCH (10:13)
[2022-05-26] MEDS: LISINOPRIL 10 MG TABLET PO SCH (10:13)
[2022-05-26] MEDS: NICOTINE 10 MG CARTRIDGE (INHALER) IH PRN ×2 (10:13→17:42)
[2022-05-26] MEDS: THIAMINE HCL 100 MG TABLET (FP) PO SCH (21:30)
[2022-05-26] MEDS: MELATONIN 5 MG TABLETS PO SCH (21:30)
[2022-05-27] MEDS: glipiZIDE-XL 5 MG TAB.ER.24 PO SCH (06:04)
[2022-05-27] MEDS: metFORMIN HCL 500 MG TABLET (FP) PO SCH (06:04)
[2022-05-27] MEDS: methaDONE HCL 40 MG DISPERSABLE TABLET PO SCH (06:04)
[2022-05-27] MEDS: NICOTINE 10 MG CARTRIDGE (INHALER) IH PRN ×2 (06:05→10:25)
[2022-05-27] MEDS: LISINOPRIL 10 MG TABLET PO SCH (10:25)
[2022-05-27] MEDS: PRENATAL VITAMINS W/ FOLIC ACID TABLET (FP) PO SCH (10:25)
[2022-05-27] MEDS: NICOTINE 7 MG/24 HOURS TOPICAL PATCH TD SCH (10:25)
[2022-05-27] MEDS: THIAMINE HCL 100 MG TABLET (FP) PO SCH (21:12)
[2022-05-27] MEDS: MELATONIN 5 MG TABLETS PO SCH (21:12)
[2022-05-28] MEDS: metFORMIN HCL 500 MG TABLET (FP) PO SCH (06:09)
[2022-05-28] MEDS: glipiZIDE-XL 5 MG TAB.ER.24 PO SCH (06:09)
[2022-05-28] MEDS: methaDONE HCL 40 MG DISPERSABLE TABLET PO SCH (06:09)
[2022-05-28] MEDS: NICOTINE 10 MG CARTRIDGE (INHALER) IH PRN ×3 (06:10→21:20)
[2022-05-28] MEDS: PRENATAL VITAMINS W/ FOLIC ACID TABLET (FP) PO SCH (09:36)
[2022-05-28] MEDS: LISINOPRIL 10 MG TABLET PO SCH (09:36)
[2022-05-28] MEDS: NICOTINE 7 MG/24 HOURS TOPICAL PATCH TD SCH (09:37)
[2022-05-28] MEDS: MELATONIN 5 MG TABLETS PO SCH (21:20)
[2022-05-28] MEDS: THIAMINE HCL 100 MG TABLET (FP) PO SCH (21:20)
[2022-05-29] MEDS: methaDONE HCL 40 MG DISPERSABLE TABLET PO SCH (06:21)
[2022-05-29] MEDS: glipiZIDE-XL 5 MG TAB.ER.24 PO SCH (06:21)
[2022-05-29] MEDS: metFORMIN HCL 500 MG TABLET (FP) PO SCH (06:21)
[2022-05-29] MEDS: NICOTINE 7 MG/24 HOURS TOPICAL PATCH TD SCH (10:32)
[2022-05-29] MEDS: PRENATAL VITAMINS W/ FOLIC ACID TABLET (FP) PO SCH (10:32)
[2022-05-29] MEDS: LISINOPRIL 10 MG TABLET PO SCH (10:32)
[2022-05-29] MEDS: NICOTINE 10 MG CARTRIDGE (INHALER) IH PRN ×2 (10:32→21:06)
[2022-05-29] MEDS: MELATONIN 5 MG TABLETS PO SCH (21:06)
[2022-05-29] MEDS: THIAMINE HCL 100 MG TABLET (FP) PO SCH (21:06)
[2022-05-30] MEDS: metFORMIN HCL 500 MG TABLET (FP) PO SCH (06:19)
[2022-05-30] MEDS: methaDONE HCL 40 MG DISPERSABLE TABLET PO SCH (06:19)
[2022-05-30] MEDS: NICOTINE 10 MG CARTRIDGE (INHALER) IH PRN ×4 (06:19→21:33)
[2022-05-30] MEDS: glipiZIDE-XL 5 MG TAB.ER.24 PO SCH (06:19)
[2022-05-30] MEDS: PRENATAL VITAMINS W/ FOLIC ACID TABLET (FP) PO SCH (09:57)
[2022-05-30] MEDS: LISINOPRIL 10 MG TABLET PO SCH (09:57)
[2022-05-30] MEDS: NICOTINE 7 MG/24 HOURS TOPICAL PATCH TD SCH (10:10)
[2022-05-30] MEDS: THIAMINE HCL 100 MG TABLET (FP) PO SCH (21:32)
[2022-05-30] MEDS: SUVOREXANT 10 MG TABLET PO PRN (21:32)
[2022-05-31] MEDS: hydrOXYzine PAMOATE 25 MG CAPSULE (FP) PO PRN (06:08)
[2022-05-31] MEDS: methaDONE HCL 40 MG DISPERSABLE TABLET PO SCH (06:08)
[2022-05-31] MEDS: metFORMIN HCL 500 MG TABLET (FP) PO SCH (06:08)
[2022-05-31] MEDS: glipiZIDE-XL 5 MG TAB.ER.24 PO SCH (06:08)
[2022-05-31] MEDS: LISINOPRIL 10 MG TABLET PO SCH (10:37)
[2022-05-31] MEDS: PRENATAL VITAMINS W/ FOLIC ACID TABLET (FP) PO SCH (10:37)
[2022-05-31] MEDS: NICOTINE 10 MG CARTRIDGE (INHALER) IH PRN ×2 (10:38→14:08)
[2022-05-31] MEDS: NICOTINE 7 MG/24 HOURS TOPICAL PATCH TD SCH (10:38)
[2022-05-31] MEDS: THIAMINE HCL 100 MG TABLET (FP) PO SCH (21:05)
[2022-05-31] MEDS: SUVOREXANT 10 MG TABLET PO PRN (21:05)
[2022-06-01] MEDS: metFORMIN HCL 500 MG TABLET (FP) PO SCH (06:26)
[2022-06-01] MEDS: NICOTINE 10 MG CARTRIDGE (INHALER) IH PRN ×2 (06:26→09:46)
[2022-06-01] MEDS: methaDONE HCL 40 MG DISPERSABLE TABLET PO SCH (06:26)
[2022-06-01] MEDS: hydrOXYzine PAMOATE 25 MG CAPSULE (FP) PO PRN (06:26)
[2022-06-01] MEDS: glipiZIDE-XL 5 MG TAB.ER.24 PO SCH (06:26)
[2022-06-01] MEDS: PRENATAL VITAMINS W/ FOLIC ACID TABLET (FP) PO SCH (09:46)
[2022-06-01] MEDS: NICOTINE 7 MG/24 HOURS TOPICAL PATCH TD SCH (09:46)
[2022-06-01] MEDS: LISINOPRIL 10 MG TABLET PO SCH (09:46)
[2022-06-01] MEDS: THIAMINE HCL 100 MG TABLET (FP) PO SCH (21:25)
[2022-06-01] MEDS: SUVOREXANT 10 MG TABLET PO PRN (21:25)
[2022-06-02] MEDS: methaDONE HCL 40 MG DISPERSABLE TABLET PO SCH (06:21)
[2022-06-02] MEDS: hydrOXYzine PAMOATE 25 MG CAPSULE (FP) PO PRN (06:22)
[2022-06-02] MEDS: metFORMIN HCL 500 MG TABLET (FP) PO SCH (06:22)
[2022-06-02] MEDS: glipiZIDE-XL 5 MG TAB.ER.24 PO SCH (06:22)
[2022-06-02] MEDS: NICOTINE 10 MG CARTRIDGE (INHALER) IH PRN ×3 (06:23→21:30)
[2022-06-02] MEDS: NICOTINE 7 MG/24 HOURS TOPICAL PATCH TD SCH (10:54)
[2022-06-02] MEDS: LISINOPRIL 10 MG TABLET PO SCH (10:54)
[2022-06-02] MEDS: PRENATAL VITAMINS W/ FOLIC ACID TABLET (FP) PO SCH (10:54)
[2022-06-02] MEDS: THIAMINE HCL 100 MG TABLET (FP) PO SCH (21:29)
[2022-06-02] MEDS ORDERED: SUVOREXANT 10 MG TABLET PO PRN (22:00)
[2022-06-03] MEDS ORDERED: methaDONE HCL 40 MG DISPERSABLE TABLET PO SCH (06:00)
[2022-06-03] MEDS: glipiZIDE-XL 5 MG TAB.ER.24 PO SCH (06:13)
[2022-06-03] MEDS: metFORMIN HCL 500 MG TABLET (FP) PO SCH (06:13)
[2022-06-03 07:09] VITALS: TEMP 97.7
[2022-06-03 09:09] VITALS: BP 106/70; PULSE 72; RESP 16
[2022-06-03] MEDS: LISINOPRIL 10 MG TABLET PO SCH (09:44)
[2022-06-03] MEDS: PRENATAL VITAMINS W/ FOLIC ACID TABLET (FP) PO SCH (09:44)
[2022-06-03] MEDS: NICOTINE 10 MG CARTRIDGE (INHALER) IH PRN (09:44)
[2022-06-03] MEDS: NICOTINE 7 MG/24 HOURS TOPICAL PATCH TD SCH (09:44)
== END 2022-06-03 09:55 | disposition home or self-care (01) | DRG 772 ==
LOC: YASAS 12:47 → Y3W 12:51
PROVIDERS: ADMIT Allergy & Immunology; ATTEND Allergy & Immunology
PROC: HZ42ZZZ Group Counseling for Substance Abuse Treatment, Cognitive-Behavioral (ICD-10-PCS; principal; 2022-05-06)
DX: F11.20 Opioid dependence, uncomplicated (principal); F10.20 Alcohol dependence, uncomplicated; F14.20 Cocaine dependence, uncomplicated; F17.210 Nicotine dependence, cigarettes, uncomplicated; F19.282 Other psychoactive substance dependence with psychoactive substance-induced sleep disorder; F19.24 Other psychoactive substance dependence with psychoactive substance-induced mood disorder; F41.9 Anxiety disorder, unspecified; F32.A Depression, unspecified; I10 Essential (primary) hypertension; E11.9 Type 2 diabetes mellitus without complications; Z79.84 Long term (current) use of oral hypoglycemic drugs; Z86.73 Personal history of transient ischemic attack (TIA), and cerebral infarction without residual deficits
CPT/HCPCS: 82962